=== PATIENT | male | born 1965 | race Caucasian/White ===

== ENCOUNTER 2017-12-24 14:48 | Emergency (ER) | payer OTHER ==
[2017-12-24] MEDS ORDERED: NA CHLORIDE 0.9% 2,000 ML ONE (15:17)
--- NOTE | 2017-12-24 15:34 | RAD REPORT ---
EXAM DESCRIPTION: US - Abdomen Exam Limited - 12/24/2017 3:27 pm CLINICAL HISTORY: Abdominal pain. COMPARISON: None. FINDINGS: The gallbladder demonstrates multiple small gallstones and a small amount of gallbladder s ludge. No pericholecystic fluid or gallbladder wall thickening. The common bile duct is normal measur ing 3 mm. The liver demonstrates no findings of intrahepatic biliary dilatation. IMPRESSION: Cholelithiasis.
[2017-12-24 15:44] LABS: Barbiturates NEGATIVE; Benzodiazepines NEGATIVE; Cocaine NEGATIVE; METHAMPHETAM NEGATIVE; Opiates NEGATIVE; Phencyclidine NEGATIVE; THC Cannibis NEGATIVE
--- NOTE | 2017-12-24 15:44 | RAD REPORT ---
EXAM DESCRIPTION: RAD - Chest Single View - 12/24/2017 3:37 pm CLINICAL HISTORY: Chest pain. COMPARISON: 08/07/2015 FINDINGS: Portable technique limits examination quality. The lungs are grossly clear. The heart is normal in size. No displaced fractures.Hardware is present cervical spine. IMPRESSION: No acute intrathoracic process suspected.
[2017-12-24 16:00] LABS: Absolute Lymphocytes (CBC) 1.3 K/uL (0.7-4.9); Absolute Monocytes 0.3 K/uL (0.1-1.3); Absolute Neutrophil 3.7 K/uL (1.8-8.0); Basophils % 0.4 % (0-1.3); Eosinophils % 1.5 % (0-4.4); Hematocrit 42.6 % (39.6-49.0); Lymphocytes % 23.9 % (15.3-44.8); MCH 30.6 pg (27.0-35.0); MCV 89.2 fL (80-100); MPV 10.5 fL (7.6-11.3); Monocytes % 6.3 % (3.3-12.3); RBC Red Blood Cell Count 4.77 M/uL (4.33-5.43)
[2017-12-24 16:01] LABS: Urine Blood NEGATIVE (NEG); Urine Glucose NEGATIVE (NEG); Urine Protein NEGATIVE (NEG)
[2017-12-24 16:03] LABS: Protime INR 1.13
[2017-12-24 16:04] LABS: Urine Bacteria NONE SEEN /HPF (NONE SEEN); Urine Culture Reflex Order NOT NEEDED; Urine RBC NONE SEEN /HPF (NONE SEEN)
[2017-12-24 16:12] LABS: Bicarbonate 28 mEq/L (21-31); Glucose Level 94 mg/dL (65-120); Lipase 16 U/L (22-51); Potassium 3.9 mEq/L (3.6-5.0); Sodium Level 129 mEq/L (135-145)
[2017-12-24 16:19] LABS: ALT/SGPT 25 IU/L (10-60); AST/SGOT 24 IU/L (10-42); Albumin 4.7 g/dL (3.2-5.5); Alkaline Phosphatase 64 IU/L (42-121); BUN Blood Urea Nitrogen 8 mg/dL (6-20); Bilirubin Direct 0.2 mg/dL (0-0.2); Bilirubin Total 1.1 mg/dL (0.3-1.2); Creatine Phosphokinase 159 IU/L (22-269); Protein, Total 7.8 g/dL (6.0-8.3)
[2017-12-24 16:21] LABS: CKMB Creatine Kinase MB 4.9 ng/ml (0.3-4.0)
--- NOTE | 2017-12-24 16:57 | RAD REPORT ---
EXAM DESCRIPTION: CT - Head Brain Wo Cont - 12/24/2017 4:39 pm CLINICAL HISTORY: Syncope, weakness COMPARISON: CT head July 2015. TECHNIQUE: Axial 5 mm thick images of the head were obtained without IV contrast. All CT scans are performed using dose optimization technique as appropriate and may include automated exposure control or mA/KV adjustment according to patient size. FINDINGS: No intracranial hemorrhage, mass, edema or shift of mid-line structures. No acute infarcti on changes seen. No abnormal extra-axial fluid collections. Ventricles are normal. Physiologic calcif ications are present. Mastoid air cells and visualized portions of the paranasal sinuses are clear. No acute bony findings. IMPRESSION: Negative non-contrast CT head examination for acute or significant finding No significant change from comparison.
--- NOTE | 2017-12-24 17:00 | RAD REPORT ---
EXAM DESCRIPTION: CT - Abdomen Pelvis W Contrast - 12/24/2017 4:46 pm COMPARISON: None. TECHNIQUE: Biphasic, helical CT imaging of the abdomen and pelvis was performed following 100 ml non -ionic IV contrast. Oral contrast was given. All CT scans are performed using dose optimization technique as appropriate and may include automated exposure control or mA/KV adjustment according to patient size. FINDINGS: No suspicious findings in the lung bases. The liver, spleen, and pancreas show no suspicious findings. Gallbladder and biliary tree are also wi thout suspicious finding. Symmetric renal function is seen with no hydronephrosis or suspicious renal mass. No pyelonephritis o r acute renal parenchymal process. A 5 centimeter thin-walled anechoic cyst is present lateral right kidney. No dilated bowel loops or bowel wall thickening. No free air, free fluid or inflammatory stranding. No mass or bulky lymphadenopathy. Fat extends into the origin of the left inguinal canal. No bladder wall thickening or mass. Prostate gland within normal limits. No adrenal abnormality. No suspicious bony findings. IMPRESSION: Contrast enhanced CT abdomen and pelvis showing no significant or suspicious finding.
--- NOTE | 2017-12-24 17:26 | ER ---
Nurse's Notes [facility] Name: Reji Rodrigez Age: 52 yrs Sex: Male : 1965 Arrival Date: 12/24/2017 Time: 14:50 Bed 15 Private MD: Diagnosis: Dehydration;Anorexia Presentation: 12/24 14:54 Presenting complaint: Patient states: i went to my pain management doctor and almost tw2 passed out and my temperature was low 94, having weakness and run down, lyme disease and my gallbladder is acting up. Transition of care: patient was not received from another setting of care. 14:54 Method Of Arrival: Ambulatory tw2 14:54 Acuity: TELLO 3 tw2 17:06 Onset of symptoms is unknown. Care prior to arrival: None. ae1 Historical: - Allergies: 15:04 No Known Allergies; ch - Home Meds: 17:10 Xanax Oral [Active]; Minetto Thyroid 30 mg Oral tab [Active]; ae1 - PMHx: 17:10 Hepatitis; Anxiety; lyme disease; ae1 - PSHx: 15:04 neck surgery X3; ch - Immunization history:: Flu vaccine is not up to date. - Social history:: Smoking status: Patient/guardian denies using tobacco. Screenin:58 Abuse screen: Denies threats or abuse. Nutritional screening: No deficits noted. ae1 Tuberculosis screening: No symptoms or risk factors identified. Fall Risk None identified. Assessment: 15:00 General: Appears in no apparent distress. uncomfortable, unkempt, Behavior is ae1 cooperative, anxious. Pain: Denies pain. Neuro: Level of Consciousness is awake, alert, obeys commands, Oriented to person, place, time, situation. Neuro: Reports dizziness. Cardiovascular: Heart tones S1 S2 present Patient's skin is warm and dry. Respiratory: Airway is patent Respiratory effort is even, unlabored, Respiratory pattern is regular, symmetrical, Breath sounds are clear bilaterally. GI: Abdomen is round Bowel sounds present X 4 quads. GI: Reports constipation. : No signs and/or symptoms were reported regarding the genitourinary system. Urine is clear. EENT: No signs and/or symptoms were reported regarding the EENT system. Derm: Skin is pale. Musculoskeletal: Reports Generalized weakness. 17:07 Reassessment: Patient appears in no apparent distress at this time. No changes from ae1 previously documented assessment. Patient and/or family updated on plan of care and expected duration. Pain level reassessed. 18:16 Reassessment: Patient appears in no apparent distress at this time. No changes from aj1 previously documented assessment. Patient and/or family updated on plan of care and expected duration. Pain level reassessed. Patient is alert, oriented x 3, equal unlabored respirations, skin warm/dry/pink. Vital Signs: 14:55 BP 123 / 83; Pulse 51; Resp 17; Temp 94.9(O); Pulse Ox 99% on R/A; Weight 88 kg (R); tw2 Height 6 ft. 2 in. (187.96 cm); Pain 7/10; 15:13 Temp 98(O); ae1 17:01 BP 132 / 96; Pulse 52; Resp 18 S; Pulse Ox 100% on R/A; ae1 14:55 Body Mass Index 24.91 (88.00 kg, 187.96 cm) tw2 14:55 stomach and it is throbbing. tw2 ED Course: 14:50 Patient arrived in ED. as 14:55 Triage completed. tw2 14:56 Arm band placed on. tw2 15:07 Ulices Tim, NADYA is Primary Nurse. ae1 15:10 [facility] Herr [facility]-C [facility]. snw 15:10 Uvaldo Sears MD is Attending Physician. snw 15:24 US Abdomen Limited In Process Unspecified. EDMS 15:24 Patient taken to ultrasound. via wheelchair. hr 15:36 X-ray completed. Portable x-ray completed in exam room. Patient tolerated procedure kc2 well. 15:38 Chest Single View XRAY In Process Unspecified. EDMS 16:10 EKG done, by medical records field technician. reviewed by Yaritza BUSCH. at1 16:36 Inserted 23 Gauge "butterfly" to obtain 2nd set of blood cultures from the right AC. ae1 16:[address] via wheelchair. nj 16:39 CT Head Brain wo Cont In Process Unspecified. EDMS 16:46 CT completed. Patient tolerated procedure well. Patient moved back from CT. nj 16:46 CT Abd/Pelvis - W/Contrast In Process Unspecified. EDMS 16:57 Patient moved back from CT. ae1 16:57 Placed in gown. Bed in low position. Call light in reach. Side rails up X 1. Adult w/ ae1 patient. color television console monitor on. Pulse ox on. NIBP on. Warm blanket given. 17:17 Primary Nurse role handed off by Ulices Tim, NADYA 17:20 Ulices Tim, RN is Primary Nurse. ae1 17:21 Primary Nurse role handed off by Ulices Tim, RN aj 17:21 Denisse Fernández, NADYA is Primary Nurse. aj1 17:22 Report received from Minerva Lobato RN. aj1 18:17 No provider procedures requiring assistance completed. IV discontinued, intact, aj1 bleeding controlled, No redness/swelling at site. Pressure dressing applied. Administered Medications: 15:40 Drug: NS 0.9% (30 ml/kg) 30 ml/kg Route: IV; Rate: bolus; Site: left antecubital; ae1 Point of Care Testing: Blood Glucose: 15:53 Blood Glucose: 83 mg/dL; ae1 Ranges: Outcome: 17:26 Discharge ordered by . snw 18:17 Discharged to home ambulatory. aj1 18:17 Condition: good 18:17 Discharge instructions given to patient, Instructed on discharge instructions, follow up and referral plans. no drinking with medication, no driving heavy equipment, medication usage, Demonstrated understanding of instructions, follow-up care, medications, Prescriptions given X 2. 18:18 Patient left the ED. aj1 Signatures: Dispatcher [employer] EDMS Kizzy Day, NADYA [place] Denisse Fernández, RN RN aj1 Yaritza Herr, SENIOR PRODUCT ENGINEER-C SENIOR PRODUCT ENGINEER-Csnw Jocy Gonzáles Amelia as gonzales, Amanda, inside sales EKG Tat1 Gisela Munguia, RN RN tw2 Miranda Carrizales kc2 Ulices Tim, RN RN ae1 Jose R Martin
--- NOTE | 2017-12-24 17:26 | EDPHYS ---
Physician Documentation [facility] Name: Reji Rodrigez Age: 52 yrs Sex: Male : 1965 Arrival Date: 12/24/2017 Time: 14:50 Bed 15 Private MD: ED Physician Uvaldo Sears HPI: 12/24 15:21 This 52 yrs old Male presents to ER via Ambulatory with complaints of Low snw Temp, Weakness. 15:21 Onset: The symptoms/episode began/occurred gradually, 1 month(s) ago, and became snw persistent. Associated signs and symptoms: Pertinent positives: abdominal pain, weakness, hypothermia. Modifying factors: The patient symptoms are alleviated by nothing. The patient has experienced similar episodes in the past. pain mgmt, Dr. Grier. Historical: - Allergies: 15:04 No Known Allergies; ch - Home Meds: 17:10 Xanax Oral [Active]; [place] Thyroid 30 mg Oral tab [Active]; ae1 - PMHx: 17:10 Hepatitis; Anxiety; lyme disease; ae1 - PSHx: 15:04 neck surgery X3; ch - Immunization history:: Flu vaccine is not up to date. - Social history:: Smoking status: Patient/guardian denies using tobacco. ROS: 15:19 Constitutional: Negative for fever, chills, and weight loss, Eyes: Negative for injury, snw pain, redness, and discharge, ENT: Negative for injury, pain, and discharge, Neck: Negative for injury, pain, and swelling, Respiratory: Negative for shortness of breath, cough, wheezing, and pleuritic chest pain, Back: Negative for injury and pain, : Negative for injury, bleeding, discharge, and swelling, MS/Extremity: Negative for injury and deformity, Skin: Negative for injury, rash, and discoloration. 15:19 Cardiovascular: Positive for near syncope. 15:19 Abdomen/GI: Positive for abdominal pain, nausea and vomiting, constipation, anorexia. 15:19 Neuro: Positive for near syncope, weakness. Exam: 15:19 Constitutional: This is a well developed, well nourished patient who is awake, alert, snw and in no acute distress. Head/Face: Normocephalic, atraumatic. Eyes: Pupils equal round and reactive to light, extra-ocular motions intact. Lids and lashes normal. Conjunctiva and sclera are non-icteric and not injected. Cornea within normal limits. Periorbital areas with no swelling, redness, or edema. ENT: Nares patent. No nasal discharge, no septal abnormalities noted. Tympanic membranes are normal and external auditory canals are clear. Oropharynx with no redness, swelling, or masses, exudates, or evidence of obstruction, uvula midline. Mucous membranes moist. Neck: Trachea midline, no thyromegaly or masses palpated, and no cervical lymphadenopathy. Supple, full range of motion without nuchal rigidity, or vertebral point tenderness. No Meningismus. Chest/axilla: Normal chest wall appearance and motion. Nontender with no deformity. No lesions are appreciated. Cardiovascular: Regular rate and rhythm with a normal S1 and S2. No gallops, murmurs, or rubs. Normal PMI, no JVD. No pulse deficits. Respiratory: Lungs have equal breath sounds bilaterally, clear to auscultation and percussion. No rales, rhonchi or wheezes noted. No increased work of breathing, no retractions or nasal flaring. Abdomen/GI: Soft, non-tender, with normal bowel sounds. No distension or tympany. No guarding or rebound. No evidence of tenderness throughout. Back: No spinal tenderness. No costovertebral tenderness. Full range of motion. Skin: Warm, dry with normal turgor. Normal color with no rashes, no lesions, and no evidence of cellulitis. MS/ Extremity: Pulses equal, no cyanosis. Neurovascular intact. Full, normal range of motion. Neuro: Awake and alert, GCS 15, oriented to person, place, time, and situation. Cranial nerves II-XII grossly intact. Motor strength 5/5 in all extremities. Sensory grossly intact. Cerebellar exam normal. Normal gait. Vital Signs: 14:55 BP 123 / 83; Pulse 51; Resp 17; Temp 94.9(O); Pulse Ox 99% on R/A; Weight 88 kg (R); tw2 Height 6 ft. 2 in. (187.96 cm); Pain 7/10; 15:13 Temp 98(O); ae1 17:01 BP 132 / 96; Pulse 52; Resp 18 S; Pulse Ox 100% on R/A; ae1 14:55 Body Mass Index 24.91 (88.00 kg, 187.96 cm) tw2 14:55 stomach and it is throbbing. tw2 MDM: 15:10 Patient medically screened. teddy 17:27 Data reviewed: vital signs, nurses notes. Data interpreted: Pulse oximetry: on room air snw is 100 %. Interpretation: normal. Counseling: I had a detailed discussion with the patient and/or guardian regarding: the historical points, exam findings, and any diagnostic results supporting the discharge/admit diagnosis, the presence of at least one elevated blood pressure reading (>120/80) during this emergency department visit, lab results, radiology results, the need for outpatient follow up, to return to the emergency department if symptoms worsen or persist or if there are any questions or concerns that arise at home. Special discussion: Based on the patient's Hx, exam, and Dx evaluation, there is no indication for emergent surgery or inpatient Tx. It is understood by the patient/guardian that if the Sx's persist or worsen they need to return immediately for re-evaluation. I have referred the patient to see his PCP for further evaluation of high blood pressure. Based on the history and exam findings, there is no indication for further emergent testing or inpatient evaluation. I discussed with the patient/guardian the need to see the enrichment director for further evaluation of the symptoms. I discussed with the patient/guardian the need to see the primary care provider for further evaluation of the symptoms. 12/24 15:11 Order name: Urine Culture w 12/24 15:11 Order name: Urine Microscopic Only; Complete Time: 16:12 snw 12/24 15:11 Order name: Basic Metabolic Panel; Complete Time: 16:22 snw 12/24 15:11 Order name: Blood Culture Adult (2) w 12/24 15:11 Order name: BNP; Complete Time: 17:20 snw 12/24 15:11 Order name: CBC with Diff; Complete Time: 16:12 snw 12/24 15:11 Order name: Ckmb; Complete Time: 16:22 snw 12/24 15:11 Order name: CPK; Complete Time: 16:22 snw 12/24 15:11 Order name: Lactate; Complete Time: 16:13 snw 12/24 15:11 Order name: LFT's; Complete Time: 16:22 snw 12/24 15:11 Order name: Lipase; Complete Time: 16:22 snw 12/24 15:11 Order name: Procalcitonin; Complete Time: 16:41 snw 12/24 15:11 Order name: Protime (+inr); Complete Time: 16:12 snw 12/24 15:11 Order name: Ptt, Activated; Complete Time: 16:12 snw 12/24 15:11 Order name: Troponin (emerg Dept Use Only); Complete Time: 16:21 snw 12/24 15:11 Order name: Chest Single View XRAY; Complete Time: 15:46 snw 12/24 15:11 Order name: Accucheck; Complete Time: 15:53 snw 12/24 15:11 Order name: Cardiac monitoring; Complete Time: 15:48 snw 12/24 15:11 Order name: EKG - Nurse/Tech; Complete Time: 16:05 snw 12/24 15:11 Order name: IV Saline Lock - Large Bore; Complete Time: 15:48 snw 12/24 15:11 Order name: Labs collected and sent; Complete Time: 15:48 snw 12/24 15:11 Order name: O2 Per Protocol; Complete Time: 15:48 snw 12/24 15:11 Order name: O2 Sat Monitoring; Complete Time: 15:48 snw 12/24 15:11 Order name: UDS snw 12/24 15:11 Order name: US Abdomen Limited; Complete Time: 15:40 snw 12/24 15:24 Order name: CT Head Brain wo Cont; Complete Time: 17:20 snw 12/24 15:24 Order name: CT Abd/Pelvis - W/Contrast; Complete Time: 17:20 snw 12/24 15:49 Order name: Urine Dipstick--Ancillary (enter results); Complete Time: 16:12 ag 12/24 16:46 Order name: EKG Electrocardiogram EDMS 12/24 15:11 Order name: Urine Dipstick-Ancillary (obtain specimen); Complete Time: 15:48 snw Administered Medications: 15:40 Drug: NS 0.9% (30 ml/kg) 30 ml/kg Route: IV; Rate: bolus; Site: left antecubital; ae1 Point of Care Testing: Blood Glucose: 15:53 Blood Glucose: 83 mg/dL; ae1 Ranges: Critical Glucose Levels:Adult <50 mg/dl or >400 mg/dl <40 mg/dl or >180 mg/dl Disposition: 12/25 07:03 Co-signature as Attending Physician, Uvaldo Sears MD I agree with the assessment and the [facility] plan of care. Disposition: 12/24/17 17:26 Discharged to Home. Impression: Dehydration, Anorexia. - Condition is Stable. - Discharge Instructions: Abdominal Pain, Adult, Dehydration, Adult, Near-Syncope, Malnutrition, Rehydration, Adult. - Prescriptions for promethazine 25 mg Oral Tablet - take 1 tablet by ORAL route every 6 hours As needed; 20 tablet. - Work release form, Medication Reconciliation Form, Thank You Letter, Antibiotic Education, Prescription Opioid Use form. - Follow up: Private Physician; When: 2 - 3 days; Reason: Recheck today's complaints, Continuance of care, Re-evaluation by your physician. Follow up: Emergency Department; When: As needed; Reason: Worsening of condition. Signatures: Dispatcher [employer] EDMS Kizzy Day, RN Denisse Pedro ch RN RN aj1 Uvaldo Sears MD MD cha Therrien, Shelly, AIRCONDITIONING ENGINEER-C AIRCONDITIONING ENGINEER-Csnw Ulices Tim, RN RN ae1
--- NOTE | 2017-12-25 08:00 | EKG ---
Test Date: 2017-12-24 Test Time: 16:04:28 Needle Punch Operator: IRLANDA MEASUREMENT RESULTS: Intervals: Rate: 49 AR: 128 QRSD: 96 QT: 458 QTc: 413 [place]: P: 46 AR: 128 QRS: 47 T: 53 INTERPRETIVE STATEMENTS: Marked sinus bradycardia Abnormal ECG Compared to ECG 08/07/2015 17:25:35 No significant changes Electronically Signed On 12-25-17 07:59:11 CDT by Eduardo Parrish
== END 2017-12-24 18:18 | disposition home or self-care (01) ==
LOC: ER 14:48
DX: E86.0 Dehydration (principal); R63.0 Anorexia; F41.9 Anxiety disorder, unspecified
CPT/HCPCS: 36415; 70450; 71045; 74177; 76705; 80048; 80076; 80307 ×8; 82550; 82553; 83605; 83690; 83880; 84145; 84484; 85025; 85610; 85730; 87040 ×2; 87086; 87088; 93005; J7030; Q9967; 81003; 81015; 82962; 96374; 99285

== ENCOUNTER 2018-01-29 09:47 | Day surgery (SDC) | payer OTHER ==
[2018-01-29 10:04] LABS: Absolute Monocytes 0.4 K/uL (0.1-1.3); Absolute Neutrophil 2.9 K/uL (1.8-8.0); Basophils % 0.5 % (0-1.3); Eosinophils % 2.9 % (0-4.4); Hematocrit 40.9 % (39.6-49.0); Lymphocytes % 36.7 % (15.3-44.8); MCH 30.1 pg (27.0-35.0); MCV 90.2 fL (80-100); MPV 9.9 fL (7.6-11.3); Monocytes % 7.3 % (3.3-12.3); RBC Red Blood Cell Count 4.53 M/uL (4.33-5.43)
[2018-01-29 10:20] LABS: Bicarbonate 30 mEq/L (21-31); Glucose Level 86 mg/dL (65-120); Potassium 4.5 mEq/L (3.6-5.0); Sodium Level 135 mEq/L (135-145)
[2018-01-29 10:26] LABS: ALT/SGPT 26 IU/L (10-60); AST/SGOT 22 IU/L (10-42); Albumin 4.4 g/dL (3.2-5.5); Alkaline Phosphatase 61 IU/L (42-121); Amylase Level 51 U/L (28-100); BUN Blood Urea Nitrogen 7 mg/dL (6-20); Bilirubin Direct 0.1 mg/dL (0-0.2); Bilirubin Total 0.8 mg/dL (0.3-1.2); Protein, Total 6.9 g/dL (6.0-8.3)
[2018-01-29] MEDS: Ringers Lactate 1,000 ML IV ONE ×2 (10:27→12:00)
[2018-01-29] MEDS ORDERED: LIDOCAINE 2% MPF 5 ML VIAL ONE (11:52)
[2018-01-29] MEDS ORDERED: PROPOFOL 200 MG/20 ML VIAL IV ONE ×2 (11:52→11:53)
[2018-01-29] MEDS ORDERED: ROCURONIUM 50 MG/5 ML VIAL IV ONE (11:54)
[2018-01-29] MEDS ORDERED: MIDAZOLAM HCL 2 MG/2 ML INJ ONE (11:54)
[2018-01-29] MEDS ORDERED: FENTANYL CITR 100 MCG/2 ML ONE (11:54)
[2018-01-29] MEDS: CEFOXITIN/SWI 1gm 1 GM/10 ML SYR ONE ×2 (11:55→12:02)
[2018-01-29] MEDS ORDERED: DEXAMETHASONE 10 MG/ML VIAL ONE (12:05)
[2018-01-29] MEDS ORDERED: GLYCOPYRROLATE 0.2 MG/ML SYR ONE ×3 (12:10→12:34)
[2018-01-29] MEDS ORDERED: EPHEDRINE SULF 50 MG/5 ML SYR ONE (12:25)
[2018-01-29] MEDS ORDERED: NS 0.9% VIAL 10 ML ONE (12:25)
[2018-01-29] MEDS ORDERED: NEOSTIGMINE 1 MG/ML -5 ML SYRINGE ONE (12:34)
[2018-01-29] MEDS ORDERED: KETOROLAC 30 MG/ML INJ ONE (12:49)
[2018-01-29] MEDS ORDERED: Ringers Lactate 1,000 ML IV ONE (12:54)
[2018-01-29] MEDS ORDERED: ONDANSETRON HCL 40 MG/20 ML VIAL ONE (12:55)
[2018-01-29] MEDS: MEPERIDINE HCL 50 MG/ML AMP ONE ×4 (13:19→13:36)
[2018-01-29] MEDS ORDERED: PROMETHAZINE 25 MG/ML VIAL ONE (13:51)
--- NOTE | 2018-01-30 00:20 | OP ---
Date of Procedure: 01/29/2018 Surgeon: Tha Granados MD Preoperative Diagnosis: Symptomatic cholelithiasis. Postoperative Diagnosis: Symptomatic cholelithiasis. Procedure: Laparoscopic cholecystectomy. Estimated Blood Loss: Minimal. Specimen: Gallbladder. Findings: As above. Anesthesia: General. Complications: None. Disposition: The patient tolerated the procedure in stable condition, taken to Recovery in good gene ral condition. Operative Note: The patient was brought to the OR and placed in supine position. General anesthesia was begun. The patient was prepped and draped in usual sterile fashion. Marcaine 0.5% was infiltra dorie locally. A 15-blade was used to make a 1 cm infraumbilical midline incision. Subcutaneous tissu e divided. Fascia was identified and divided. A #1 Vicryl stay suture was placed. Peritoneal cavit y was entered with blunt dissection. A 12-mm trocar was placed into the peritoneal cavity under dire ct vision. Pneumoperitoneum established and then three 5-mm trocars placed, 1 in the epigastrium jus t to the right of midline and 2 in the right subcostal region. Laparoscopy revealed chronic inflamma tion of the gallbladder. Fundus retracted superiorly. Infundibulum identified, retracted inferolate rally. Few omental adhesions taken down in gentle dissection. No bleeding noted. Subsequently cyst ic duct and cystic artery were clearly identified with blunt dissection. Clips placed. Both structu res divided. Cautery used to remove the gallbladder from the liver bed. Bleeding on the liver bed w as controlled with cautery. Gallbladder retrieved via EndoCatch bag. Right upper quadrant was irrig ated. Effluent was clear. No evidence of bleeding or bile leakage appreciated. Subsequently, all t rocars were removed under direct vision. Stay sutures tied to each other across the fascial defect. Subcutaneous wounds irrigated. Bleeding controlled with cautery. A 3-0 chromic was used to approxi mate subcutaneous tissue and caitlyn used to close skin. Sterile dressing applied. The patient was awakened and taken to Recovery in good general condition. Discharge Note: The patient will go to Day Surgery and home when stable. Disposition: Home. Condition: Stable. Discharge Instructions: Resume home medications and diet. Activity as tolerated. No heavy lifting. Remove outer dressing in 2 days. Shower. Keep wound clean and dry. Follow up in my office in a w [place]. Call for appointment. Tylenol No. 3 one tablet p.o. q.4 p.r.n. pain. /SAURAV Voice ID: [id number] Report ID: [id number]
== END 2018-01-29 15:10 | disposition home or self-care (01) ==
LOC: OR 09:47
PROVIDERS: ATTEND Surgery
PROC: 0FT44ZZ Resection of Gallbladder, Percutaneous Endoscopic Approach (ICD-10-PCS; principal; 2018-01-29 10:30)
DX: K80.20 Calculus of gallbladder without cholecystitis without obstruction (principal)
CPT/HCPCS: 36415; 47562; 80048; 80076; 82150; 85025; 88304; J1100; J2175; J2250; J2405; J2550; J2710; J3010; 88305

== ENCOUNTER 2018-04-29 16:37 | Emergency (ER) | payer OTHER ==
[2018-04-29 18:59] LABS: Urine Blood NEGATIVE (NEG); Urine Glucose NEGATIVE (NEG); Urine Protein NEGATIVE (NEG); Urine pH 7.5 (5.0-7.0)
[2018-04-29 19:00] LABS: Absolute Monocytes 0.4 K/uL (0.1-1.3); Absolute Neutrophil 4.3 K/uL (1.8-8.0); Basophils % 0.5 % (0-1.3); Eosinophils % 3.2 % (0-4.4); Hematocrit 43.6 % (39.6-49.0); Lymphocytes % 28.8 % (15.3-44.8); MCH 31.6 pg (27.0-35.0); MCV 91.3 fL (80-100); MPV 8.5 fL (7.6-11.3); Monocytes % 6.1 % (3.3-12.3); RBC Red Blood Cell Count 4.77 M/uL (4.33-5.43)
[2018-04-29 19:17] LABS: ALT/SGPT 53 U/L (12-78); AST/SGOT 29 U/L (15-37); Albumin 4.2 g/dL (3.4-5.0); Alkaline Phosphatase 76 U/L (45-117); Amylase Level 50 U/L (25-115); BUN Blood Urea Nitrogen 6 mg/dL (7-18); Bicarbonate 31 mmol/L (21-32); Bilirubin Direct 0.1 mg/dL (0-0.2); Bilirubin Total 0.6 mg/dL (0.2-1.0); Glucose Level 91 mg/dL (74-106); Lipase 95 U/L (73-393); Potassium 4.3 mmol/L (3.5-5.1); Protein, Total 8.2 g/dL (6.4-8.2); Sodium Level 135 mmol/L (136-145)
[2018-04-29 19:21] LABS: Urine Bacteria <20 /HPF (NONE SEEN); Urine Culture Reflex Order NOT NEEDED; Urine RBC <5 /HPF (NONE SEEN)
[2018-04-29] MEDS ORDERED: MAGNE/ALUM HYDROXD 30 ML UCUP ONE (19:47)
[2018-04-29] MEDS ORDERED: LIDOCAINE VISCOUS 2% SOLN 15 ML UDC ONE (19:47)
--- NOTE | 2018-04-29 21:50 | EDPHYS ---
Physician Documentation [facility] Name: Reji Rodrigez Age: 53 yrs Sex: Male : 1965 Arrival Date: 04/29/2018 Time: 16:38 Bed 28 Private MD: out of town, doctor ED Physician Jacob Mcclendon HPI: 04/29 19:04 This 53 yrs old Male presents to ER via Ambulatory with complaints of tw4 Abdominal Pain. 19:04 The patient presents with abdominal pain in the epigastric area. Onset: The tw4 symptoms/episode began/occurred today. The symptoms do not radiate. Associated signs and symptoms: Pertinent positives: nausea and vomiting, Pertinent negatives: blood in stools, chest pain, constipation, diarrhea, fever, headache, hematuria. The symptoms are described as sharp. Modifying factors: The symptoms are alleviated by nothing, the symptoms are aggravated by nothing. Severity of pain: At its worst the pain was moderate in the emergency department the pain is unchanged. The patient has not experienced similar symptoms in the past. Historical: - Allergies: 17:24 No Known Allergies; aj1 - Home Meds: 17:24 Xanax Oral [Active]; OxyContin Oral [Active]; aj1 - PMHx: 17:24 Anxiety; Hepatitis; lyme disease; Hypothyroidism; aj1 - Immunization history:: Flu vaccine is not up to date. - Social history:: Smoking status: Patient/guardian denies using tobacco. - Ebola Screening: : Patient denies travel to an Ebola-affected area in the 21 days before illness onset. ROS: 19:04 Constitutional: Negative for fever, chills, and weight loss, Cardiovascular: Negative tw4 for chest pain, palpitations, and edema, Respiratory: Negative for shortness of breath, cough, wheezing, and pleuritic chest pain. 19:04 Back: Negative for injury and pain, MS/Extremity: Negative for injury and deformity, Skin: Negative for injury, rash, and discoloration. 19:04 Abdomen/GI: Positive for abdominal pain, Negative for nausea and vomiting, nausea, vomiting, and diarrhea, nausea, black/tarry stool, rectal pain. Exam: 19:04 Constitutional: This is a well developed, well nourished patient who is awake, alert, tw4 and in no acute distress. Head/Face: Normocephalic, atraumatic. Chest/axilla: Normal chest wall appearance and motion. Nontender with no deformity. No lesions are appreciated. Cardiovascular: Regular rate and rhythm with a normal S1 and S2. No gallops, murmurs, or rubs. Normal PMI, no JVD. No pulse deficits. Respiratory: Lungs have equal breath sounds bilaterally, clear to auscultation and percussion. No rales, rhonchi or wheezes noted. No increased work of breathing, no retractions or nasal flaring. 19:04 MS/ Extremity: Pulses equal, no cyanosis. Neurovascular intact. Full, normal range of motion. Neuro: Awake and alert, GCS 15, oriented to person, place, time, and situation. Cranial nerves II-XII grossly intact. Motor strength 5/5 in all extremities. Sensory grossly intact. Cerebellar exam normal. Normal gait. 19:04 Abdomen/GI: Inspection: abdomen appears normal, Bowel sounds: normal, Palpation: moderate abdominal tenderness, in the epigastric area. Vital Signs: 17:24 BP 126 / 96; Pulse 56; Resp 20; Temp 98.2; Pulse Ox 100% on R/A; Weight 81.65 kg (R); aj1 Height 6 ft. 3 in. (190.50 cm) (R); Pain 6/10; 19:21 Pulse 57; Resp 18; Pulse Ox 100% ; Pain 8/10; mg2 20:24 BP 122 / 75; Pulse 51; Resp 18; Pulse Ox 100% on R/A; mg2 22:06 BP 121 / 74; Pulse 50; Resp 18; Pulse Ox 100% on R/A; mg2 17:24 Body Mass Index 22.50 (81.65 kg, 190.50 cm) aj1 MDM: 18:10 Patient medically screened. tw4 21:48 Differential diagnosis: gastritis, Hepatitis, Irritable bowel syndrome, pancreatitis, tw4 Peptic Ulcer Disease, Perf. Duodenal Ulcer, Perf. Gastric Ulcer. Data reviewed: vital signs, nurses notes. Counseling: I had a detailed discussion with the patient and/or guardian regarding: the historical points, exam findings, and any diagnostic results supporting the discharge/admit diagnosis, lab results. Medication response: GI Cocktail partially relieved the patient's pain. Response to treatment: and as a result, I will discharge patient. Special discussion: Based on the patient's Hx, exam, and Dx evaluation, there is no indication for emergent surgery or inpatient Tx. It is understood by the patient/guardian that if the Sx's persist or worsen they need to return immediately for re-evaluation. 04/29 18:12 Order name: Amylase, Serum; Complete Time: 19:40 [facility] 04/29 19:41 Interpretation: Within normal limits: VINNY 50. [facility] 04/29 18:12 Order name: Basic Metabolic Panel; Complete Time: 19:40 04/29 19:40 Interpretation: Normal except: NA 135. 04/29 18:12 Order name: CBC with Diff; Complete Time: 19:40 4 04/29 19:41 Interpretation: Within normal limits. 04/29 18:12 Order name: Creatinine for Radiology; Complete Time: 19:40 [facility] 04/29 19:41 Interpretation: Within normal limits. 04/29 18:12 Order name: Hepatic Function; Complete Time: 19:40 [facility] 04/29 19:40 Interpretation: Normal except: GLOB 4.0. 04/29 18:12 Order name: Lipase; Complete Time: 19:40 [facility] 04/29 19:41 Interpretation: Within normal limits: LIP 95. 04/29 18:12 Order name: Urine Microscopic Only; Complete Time: 19:40 [facility] 04/29 18:12 Order name: IV Saline Lock; Complete Time: 18:54 [facility] 04/29 18:12 Order name: Labs collected and sent; Complete Time: 18:54 [facility] 04/29 18:12 Order name: Urine Dipstick-Ancillary (obtain specimen); Complete Time: 18:54 [facility] 04/29 18:52 Order name: Urine Dipstick--Ancillary (enter results); Complete Time: 19:40 bd EC:52 Rate is 52 beats/min. Rhythm is regular. QRS [place] is Normal. UT interval is normal. QRS tw4 interval is normal. QT interval is normal. No Q waves. T waves are Normal. No ST changes noted. Clinical impression: Sinus bradycardia. Interpreted by me. Reviewed by me. Administered Medications: 19:55 Not Given (Physician Discretion): GI Cocktail with - (Maalox Suspension 30 ml, mg2 Lidocaine Liquid 2 % 20 ml, Phenobarbital-Belladonna 10 ml) PO once 19:55 Drug: GI Cocktail without - (Maalox Suspension 30 ml, Lidocaine Liquid 2 % 15 mg2 ml) Route: PO; 21:50 Follow up: Response: No adverse reaction; Marked relief of symptoms mg2 Disposition: 04/29/18 21:49 Discharged to Home. Impression: Gastritis, unspecified. - Condition is Stable. - Discharge Instructions: Gastritis, Adult, [id number]. - Prescriptions for Carafate 1 gram Oral Tablet - take 1 tablet by ORAL route 4 times per day take on an empty stomach, beginning on waking and last dose at bedtime; 100 tablet. Protonix 40 mg Oral Tablet - take 1 tablet by ORAL route once daily; 30 tablet. - Medication Reconciliation Form, Thank You Letter, Antibiotic Education, Prescription Opioid Use form. - Follow up: Private Physician; When: As needed; Reason: Further diagnostic work-up, Recheck today's complaints, Re-evaluation by your physician. - Problem is new. - Symptoms have improved. Signatures: Dispatcher [employer] EDDenisse Jain RN RN aj1 Jacob Mcclendon MD MD tw4 Jorge Landeros RN RN mg2 Corrections: (The following items were deleted from the chart) 22:07 21:49 04/29/2018 21:49 Discharged to Home. Impression: Gastritis, unspecified. mg2 Condition is Stable. Forms are Medication Reconciliation Form, Thank You Letter, Antibiotic Education, Prescription Opioid Use. Follow up: Private Physician; When: As needed; Reason: Further diagnostic work-up, Recheck today's complaints, Re-evaluation by your physician. Problem is new. Symptoms have improved. tw4
--- NOTE | 2018-04-29 21:50 | ER ---
Nurse's Notes [facility] Name: Reji Rodrigez Age: 53 yrs Sex: Male : 1965 Arrival Date: 04/29/2018 Time: 16:38 Bed 28 Private MD: out of town, doctor Diagnosis: Gastritis, unspecified Presentation: 04/29 17:19 Presenting complaint: Patient states: Epigastric pain that radiates to the back, aj1 burning sensation that radiates up into the chest. Patient states that he was having these symptoms so they took his gallbladder out 2 months ago, but the symptoms have just gotten worse. Patient has tried taking Tums and Nexium, with no relief. State he had a scope done by his GI 2 weeks ago and he was diagnosed with gastritis and H.Pylori. Reports SOB when he lays down flat. Transition of care: patient was not received from another setting of care. Onset of symptoms was February 2018. Risk Assessment: Do you want to hurt yourself or someone else? Patient reports no desire to harm self or others. Initial Sepsis Screen: Does the patient meet any 2 criteria? No. Patient's initial sepsis screen is negative. Does the patient have a suspected source of infection? No. Patient's initial sepsis screen is negative. Care prior to arrival: None. 17:19 Method Of Arrival: Ambulatory aj1 17:19 Acuity: TELLO 3 aj1 Triage Assessment: 17:24 General: Appears in no apparent distress. uncomfortable, Behavior is calm, cooperative, aj1 appropriate for age. Pain: Complains of pain in epigastric area Pain radiates to back and chest Pain currently is 6 out of 10 on a pain scale. Quality of pain is described as burning. Neuro: Level of Consciousness is awake, alert, obeys commands. Cardiovascular: Reports chest pain, shortness of breath, Heart tones S1 S2 present Patient's skin is warm and dry. Respiratory: Airway is patent Respiratory effort is even, unlabored, Respiratory pattern is regular, symmetrical, Breath sounds are clear bilaterally. GI: Abdomen is flat, non-distended, Reports upper abdominal pain, diarrhea, nausea, Patient currently denies vomiting. Historical: - Allergies: 17:24 No Known Allergies; aj1 - Home Meds: 17:24 Xanax Oral [Active]; OxyContin Oral [Active]; aj1 - PMHx: 17:24 Anxiety; Hepatitis; lyme disease; Hypothyroidism; aj1 - Immunization history:: Flu vaccine is not up to date. - Social history:: Smoking status: Patient/guardian denies using tobacco. - Ebola Screening: : Patient denies travel to an Ebola-affected area in the 21 days before illness onset. Screenin:19 Abuse screen: Denies threats or abuse. Nutritional screening: On low fat/low mg2 cholesterol diet. Tuberculosis screening: No symptoms or risk factors identified. Fall Risk IV access (20 points). Assessment: 19:19 General: Appears in no apparent distress. comfortable, Behavior is calm, cooperative. mg2 Pain: Complains of pain in chest and back and abdomen and epigastric area Pain does not radiate. Pain currently is 8 out of 10 on a pain scale. Quality of pain is described as aching, Pain began gradually, Is intermittent. Neuro: Level of Consciousness is awake, alert, obeys commands, Oriented to person, place, time, situation. Cardiovascular: Capillary refill < 3 seconds Patient's skin is warm and dry. Respiratory: Airway is patent Respiratory effort is even, unlabored, Respiratory pattern is regular, symmetrical. GI: Abdomen is flat, Bowel sounds present X 4 quads. Abd is soft and non tender. : No signs and/or symptoms were reported regarding the genitourinary system. EENT: No signs and/or symptoms were reported regarding the EENT system. Derm: Skin is intact, Skin is pink, warm \T\ dry. normal. Musculoskeletal: Circulation, motion, and sensation intact. Vital Signs: 17:24 BP 126 / 96; Pulse 56; Resp 20; Temp 98.2; Pulse Ox 100% on R/A; Weight 81.65 kg (R); aj1 Height 6 ft. 3 in. (190.50 cm) (R); Pain 6/10; 19:21 Pulse 57; Resp 18; Pulse Ox 100% ; Pain 8/10; mg2 20:24 BP 122 / 75; Pulse 51; Resp 18; Pulse Ox 100% on R/A; mg2 22:06 BP 121 / 74; Pulse 50; Resp 18; Pulse Ox 100% on R/A; mg2 17:24 Body Mass Index 22.50 (81.65 kg, 190.50 cm) aj ED Course: 16:38 Patient arrived in ED. sb2 16:38 out of town, doctor is Private Physician. sb2 17:23 Triage completed. aj1 17:24 Arm band placed on. EKG completed in triage. Results shown to MD. aj1 17:33 Patient placed in waiting room, Patient notified of wait time. EKG completed in triage. aj1 Results shown to MD. 18:10 Jacob Mcclendon MD is Attending Physician. tw4 18:47 Jorge Landeros, RN is Primary Nurse. mg2 18:55 Inserted saline lock: 20 gauge in left antecubital area, using aseptic technique. Blood mg2 collected. 19:20 Patient has correct armband on for positive identification. Bed in low position. Side mg2 rails up X 1. Pulse ox on. NIBP on. Door closed. Warm blanket given. 22:05 No provider procedures requiring assistance completed. IV discontinued, intact, mg2 bleeding controlled, No redness/swelling at site. Pressure dressing applied. Administered Medications: 19:55 Not Given (Physician Discretion): GI Cocktail with - (Maalox Suspension 30 ml, mg2 Lidocaine Liquid 2 % 20 ml, Phenobarbital-Belladonna 10 ml) PO once 19:55 Drug: GI Cocktail without - (Maalox Suspension 30 ml, Lidocaine Liquid 2 % 15 mg2 ml) Route: PO; 21:50 Follow up: Response: No adverse reaction; Marked relief of symptoms mg2 Outcome: 21:49 Discharge ordered by . tw4 22:06 Discharged to home ambulatory. mg2 22:06 Condition: stable 22:06 Discharge instructions given to patient, Instructed on discharge instructions, follow up and referral plans. Demonstrated understanding of instructions, follow-up care, medications, Prescriptions given X 2. 22:07 Patient left the ED. mg2 Signatures: Denisse Fernández, RN RN aj1 Jacob Mcclendon MD MD tw4 Jacquelyn Alvarez sb2 Jorge Landeros, NADYA RN mg2
--- NOTE | 2018-04-30 07:37 | EKG ---
Test Date: 2018-04-29 Test Time: 17:29:35 Phytopathology Teacher: ANDREINA MEASUREMENT RESULTS: Intervals: Rate: 52 OK: 156 QRSD: 94 QT: 446 QTc: 414 [place]: P: 75 OK: 156 QRS: 57 T: 65 INTERPRETIVE STATEMENTS: Sinus bradycardia Otherwise normal ECG Electronically Signed On 04-30-18 07:36:49 CDT by Eduardo Parrish
== END 2018-04-29 22:07 | disposition home or self-care (01) ==
LOC: ER 16:37
DX: K29.70 Gastritis, unspecified, without bleeding (principal); F41.9 Anxiety disorder, unspecified
CPT/HCPCS: 36415; 80048; 80076; 81003; 81015; 82150; 83690; 85025; 93005; 99284

== ENCOUNTER 2018-05-05 08:45 | Observation (INO) | payer OTHER ==
[2018-05-05 09:27] LABS: Urine Blood NEGATIVE (NEG); Urine Glucose NEGATIVE (NEG); Urine Protein NEGATIVE (NEG); Urine Specific Gravity <1.005 (1.005-1.030)
[2018-05-05 09:28] LABS: Urine Bacteria <20 /HPF (NONE SEEN); Urine Culture Reflex Order NOT NEEDED; Urine RBC <5 /HPF (NONE SEEN)
[2018-05-05] MEDS ORDERED: NA CHLORIDE 0.9% 1,000 ML ONE (09:33)
[2018-05-05] MEDS ORDERED: METHYLPREDNISOLONE 125 MG INJ ONE (09:33)
[2018-05-05] MEDS ORDERED: DIPHENHYDRAMINE 50 MG/ML VIAL ONE (09:33)
[2018-05-05 09:40] LABS: Absolute Lymphocytes (CBC) 1.9 K/uL (0.7-4.9); Absolute Monocytes 0.4 K/uL (0.1-1.3); Absolute Neutrophil 3.1 K/uL (1.8-8.0); Basophils % 0.7 % (0-1.3); Eosinophils % 3.2 % (0-4.4); Hematocrit 44.7 % (39.6-49.0); Lymphocytes % 34.5 % (15.3-44.8); MCH 31.6 pg (27.0-35.0); MCV 90.8 fL (80-100); MPV 9.2 fL (7.6-11.3); Monocytes % 6.6 % (3.3-12.3); RBC Red Blood Cell Count 4.92 M/uL (4.33-5.43)
[2018-05-05] MEDS ORDERED: MORPHINE 4 MG/ML SYR ONE ×2 (09:40→12:28)
[2018-05-05 09:44] LABS: ALT/SGPT 51 U/L (12-78); AST/SGOT 27 U/L (15-37); Albumin 4.3 g/dL (3.4-5.0); Alkaline Phosphatase 77 U/L (45-117); Amylase Level 43 U/L (25-115); BUN Blood Urea Nitrogen 5 mg/dL (7-18); Bicarbonate 33 mmol/L (21-32); Bilirubin Direct 0.3 mg/dL (0-0.2); Glucose Level 95 mg/dL (74-106); Lipase 110 U/L (73-393); Potassium 4.1 mmol/L (3.5-5.1); Protein, Total 8.3 g/dL (6.4-8.2); Sodium Level 134 mmol/L (136-145)
[2018-05-05] MEDS ORDERED: FAMOTIDINE 20 MG/2 ML VIAL IV ONE (10:01)
--- NOTE | 2018-05-05 10:14 | RAD REPORT ---
EXAM DESCRIPTION: CTAbdomen Pelvis W Contrast - 05/05/2018 9:45 am CLINICAL HISTORY: Abdominal pain. ABD PAIN COMPARISON: Abdomen Pelvis W Contrast dated 12/24/2017 TECHNIQUE: Biphasic CT imaging of the abdomen and pelvis was performed with 100 ml non-ionic IV cont rast. All CT scans are performed using dose optimization technique as appropriate and may include automated exposure control or mA/KV adjustment according to patient size. FINDINGS: The lung bases are clear.Cholecystectomy clips. The liver, spleen, pancreas, adrenal glands and left kidney are within normal limits. Benign 4.4 cm r ight renal cyst. No bowel obstruction, free air, free fluid or abscess. Prominent fecal retention. The appendix is nor mal. No evidence of significant lymphadenopathy. No suspicious bony findings. IMPRESSION: No acute intra-abdominal or pelvic finding.
--- NOTE | 2018-05-05 11:19 | ER ---
Nurse's Notes [facility] Name: Reji Rodrigez Age: 53 yrs Sex: Male : 1965 Arrival Date: 05/05/2018 Time: 08:48 Bed 5 Private MD: out of town, doctor Diagnosis: Abdominal and pelvic pain-Intractable Presentation: 05/05 08:50 Presenting complaint: Patient states: epi gastric pain, I had my gall bladder out two ch months ago, I had my stomach scoped one month ago, they said I have gatritis. I should get my labs back from my GI this week. but the pain in my stomach radiating to my back is worse, and the pain is radiating to my back. I was seen here last week. .all my joints hurt, Dr. Jara is my GI, he wont call me back. Transition of care: patient was not received from another setting of care. Onset of symptoms was February 2018. Risk Assessment: Do you want to hurt yourself or someone else? Patient reports no desire to harm self or others. Initial Sepsis Screen: Does the patient meet any 2 criteria? No. Patient's initial sepsis screen is negative. Does the patient have a suspected source of infection? No. Patient's initial sepsis screen is negative. Care prior to arrival: carafate, pepcid. 08:50 Method Of Arrival: Wheelchair 08:50 Acuity: TELLO 3 ch Triage Assessment: 08:54 General: Appears in no apparent distress. uncomfortable, Behavior is cooperative, ch agitated, restless. Pain: Complains of pain in epigastric area, posterior aspect of left lateral abdomen, posterior aspect of right lateral abdomen, right upper quadrant, left upper quadrant and abdomen diffusely Pain currently is 9 out of 10 on a pain scale. GI: Reports upper abdominal pain, nausea. Historical: - Allergies: 08:54 "everything I take makes me nausous"; ch 08:54 Lyrica; ch - Home Meds: 08:54 Carafate Oral [Active]; OxyContin Oral [Active]; Xanax Oral [Active]; [place] Thyroid 30 ch mg Oral tab [Active]; - PMHx: 08:54 Anxiety; Hepatitis; Hypothyroidism; lyme disease; c4-c7 fused, neck pain; gastritis; ch "mold toxicity"; epstine torres high a ccouple times; - PSHx: 08:54 Cholecystectomy; neck; ch - Immunization history:: Adult Immunizations up to date, Pneumococcal vaccine is not up to date, Flu vaccine is not up to date. - Social history:: Smoking status: Patient/guardian denies using tobacco, Patient/guardian denies using alcohol, street drugs. - Ebola Screening: : Patient negative for fever greater than or equal to 101.5 degrees Fahrenheit, and additional compatible Ebola Virus Disease symptoms Patient denies exposure to infectious person Patient denies travel to an Ebola-affected area in the 21 days before illness onset No symptoms or risks identified at this time. Screenin:20 Abuse screen: Denies threats or abuse. Denies injuries from another. Nutritional sv screening: No deficits noted. Tuberculosis screening: No symptoms or risk factors identified. Fall Risk None identified. Assessment: 09:10 General: Appears uncomfortable, slender, well developed, Behavior is calm, cooperative. sv Pain: Complains of pain in abdomen Pain currently is 9 out of 10 on a pain scale. Quality of pain is described as shooting, Is continuous. Neuro: Level of Consciousness is awake, alert, obeys commands, Oriented to person, place, time, situation, Moves all extremities. Full function Speech is normal. Respiratory: Respiratory effort is even, unlabored, Respiratory pattern is regular, symmetrical. GI: Abdomen is flat, Abd is soft X 4 quads Abdomen is tender to palpation X 4 quads. Reports nausea. : No signs and/or symptoms were reported regarding the genitourinary system. EENT: No signs and/or symptoms were reported regarding the EENT system. Derm: Skin is normal. Musculoskeletal: No signs and/or symptoms reported regarding the musculoskeletal system. 11:00 Reassessment: Patient appears in no apparent distress at this time. Patient and/or sv family updated on plan of care and expected duration. Pain level reassessed. Patient is alert, oriented x 3, equal unlabored respirations, skin warm/dry/pink. 12:25 Reassessment: Patient appears in no apparent distress at this time. Patient and/or sv family updated on plan of care and expected duration. Pain level reassessed. Patient is alert, oriented x 3, equal unlabored respirations, skin warm/dry/pink. Pt c/o abd pain, to be medicated. 12:37 Reassessment: Joaquim COVINGTON to call back for report. sv Vital Signs: 08:54 BP 126 / 88; Pulse 49; Resp 22; Temp 97.7; Pulse Ox 100% on R/A; Weight 81.65 kg; ch Height 6 ft. 2 in. (187.96 cm); Pain 9/10; 10:08 BP 134 / 85; Pulse 52 MON; Resp 16; Pulse Ox 100% on R/A; sv 11:13 BP 133 / 84; Pulse 68; Resp 18; Pulse Ox 100% on R/A; ag 08:54 Body Mass Index 23.11 (81.65 kg, 187.96 cm) ch 10:08 Sinus bradycardia sv ED Course: 08:48 Patient arrived in ED. sb2 08:48 out of town, doctor is Private Physician. sb2 08:49 Beck Simental MD is Attending Physician. kdr 08:52 Triage completed. ch 08:54 Arm band placed on left wrist. Patient placed in an exam room, on a stretcher. ch 08:58 Hortencia Swanson RN is Primary Nurse. sv 09:15 Initial lab(s) drawn, by ED staff, sent to lab. Inserted saline lock: 20 gauge in left sv antecubital area, using aseptic technique. ,using aseptic technique. done by Gisela Swain RN Blood collected. 09:20 Patient has correct armband on for positive identification. Placed in gown. Bed in low sv position. Call light in reach. Side rails up X 1. echocardiography radiology technologist on. Pulse ox on. NIBP on. Door closed. Warm blanket given. Head of bed elevated. 09:41 CT completed. Patient tolerated procedure well. Patient moved to CT via stretcher. sj Patient moved back from CT. 09:46 CT Abd/Pelvis - W/Contrast In Process Unspecified. EDMS 11:18 Dinh Malagon DO is Hospitalizing Provider. kdr 12:19 Ultrasound completed. lc3 12:31 Radiology exam delayed due to US IN ROOM. jb2 12:52 X-ray completed. Patient tolerated procedure well. Patient moved to radiology via jb2 wheelchair. 12:59 No provider procedures requiring assistance completed. Patient admitted, IV remains in sv place. intact. Administered Medications: 09:30 Drug: Benadryl 25 mg Route: IVP; Site: left antecubital; sv 10:06 Follow up: Response: No adverse reaction sv 09:30 Drug: NS 0.9% 1000 ml Route: IV; Rate: 1 bolus; Site: left antecubital; sv 11:22 Follow up: Response: No adverse reaction; IV Status: Completed infusion; IV Intake: tw2 1000ml 09:32 Drug: SOLU-Medrol 125 mg Route: IVP; Site: left antecubital; sv 10:07 Follow up: Response: No adverse reaction sv 09:35 Drug: morphine 4 mg Route: IVP; Site: left antecubital; sv 10:00 Follow up: Response: No adverse reaction sv 10:06 Not Given (Patient Refused; Pt stated it makes him feel worse): Pepcid 20 mg IVP once sv 12:25 Drug: morphine 4 mg Route: IVP; Site: left antecubital; sv 12:45 Follow up: Response: No adverse reaction sv 12:29 Not Given (Patient Refused): Zofran 4 mg IVP once; over 2 minutes sv Intake: 11:22 IV: 1000ml; Total: 1000ml. tw2 Outcome: 11:19 Decision to Hospitalize by Provider. kdr 13:00 Admitted to Med/surg accompanied by tech, via wheelchair, room 232, with chart, Report sv called to Joaquim COVINGTON 13:00 Condition: stable 13:00 Instructed on the need for admit. 13:00 Patient left the ED. sv Signatures: Dispatcher [employer] EDMS Kizzy Day RN RN ch Verde, Stephanie, RN RN sv Rittger, Kevin, MD MD kdr Buechter, Jesse jb2 Jones, Susan sj Gallardo, Ana ag Cunningham, Laulita lc3 Wise, Tara, RN RN tw2 Jacquelyn Alvarez2 Corrections: (The following items were deleted from the chart) 08:56 08:50 Presenting complaint: Patient states: epi gastric pain, I had my gall bladder out ch two months ago, I had my stomach scoped one month ago, they said I have gatritis. I should get my labs back from my GI this week. but the pain in my stomach radiating to my back is worse, and the pain is radiating to my back. I was seen here last week. . ch
--- NOTE | 2018-05-05 11:19 | EDPHYS ---
Physician Documentation [facility] Name: Reji Rodrigez Age: 53 yrs Sex: Male : 1965 Arrival Date: 05/05/2018 Time: 08:48 Bed 5 Private MD: out of town, doctor ED Physician Beck Simental HPI: 05/05 11:19 This 53 yrs old Male presents to ER via Wheelchair with complaints of kdr Abdominal Pain, Nausea. 11:19 The patient presents with abdominal pain in the epigastric area, in the upper abdomen. kdr Onset: The symptoms/episode began/occurred gradually, 2 month(s) ago. The symptoms radiate to right back. Associated signs and symptoms: Pertinent positives: nausea and vomiting, Pertinent negatives: constipation, diarrhea, fever, headache, hematuria, palpitations, shortness of breath. The symptoms are described as achy, constant, sharp, steady, waxing/waning. Modifying factors: The symptoms are alleviated by nothing, the symptoms are aggravated by breathing deeply. Severity of pain: At its worst the pain was moderate just prior to arrival, in the emergency department the pain is actually worse. The patient has experienced similar episodes in the past, multiple times, chronically, but today's symptoms are worse, more painful. The patient has been recently seen by a physician: a general surgeon, a starch crab. Historical: - Allergies: 08:54 "everything I take makes me nausous"; ch 08:54 Lyrica; ch - Home Meds: 08:54 Carafate Oral [Active]; OxyContin Oral [Active]; Xanax Oral [Active]; [place] Thyroid 30 ch mg Oral tab [Active]; - PMHx: 08:54 Anxiety; Hepatitis; Hypothyroidism; lyme disease; c4-c7 fused, neck pain; gastritis; ch "mold toxicity"; epstine torres high a ccouple times; - PSHx: 08:54 Cholecystectomy; neck; ch - Immunization history:: Adult Immunizations up to date, Pneumococcal vaccine is not up to date, Flu vaccine is not up to date. - Social history:: Smoking status: Patient/guardian denies using tobacco, Patient/guardian denies using alcohol, street drugs. - Ebola Screening: : Patient negative for fever greater than or equal to 101.5 degrees Fahrenheit, and additional compatible Ebola Virus Disease symptoms Patient denies exposure to infectious person Patient denies travel to an Ebola-affected area in the 21 days before illness onset No symptoms or risks identified at this time. ROS: 11:19 Constitutional: Negative for fever, chills, he has had 100# weight loss in the last kdr year - is concerned that he may have cancer, Eyes: Negative for injury, pain, redness, and discharge, Neck: Negative for injury, pain, and swelling, Cardiovascular: Negative for chest pain, palpitations, and edema, Respiratory: Negative for shortness of breath, cough, wheezing, and pleuritic chest pain, Back: Negative for injury and pain, : Negative for injury, bleeding, discharge, and swelling, MS/Extremity: Negative for injury and deformity, Skin: Negative for injury, rash, and discoloration, Neuro: Negative for headache, weakness, numbness, tingling, and seizure activity. Psych: Negative for depression, anxiety, suicide ideation, homicidal ideation, and hallucinations, Allergy/Immunology: Negative for hives, rash, and allergies, Endocrine: Negative for neck swelling, polydipsia, polyuria, polyphagia, and marked weight changes, Hematologic/Lymphatic: Negative for swollen nodes, abnormal bleeding, and unusual bruising. 11:19 Abdomen/GI: Positive for abdominal pain, nausea and vomiting, Negative for abdominal distension, dysphagia, hematemesis, black/tarry stool, rectal pain, rectal bleeding, bowel incontinence. Exam: 11:19 Constitutional: This is a well developed, well nourished patient who is awake, alert, kdr and in moderate/severe distress. Head/Face: Normocephalic, atraumatic. Eyes: Pupils equal round and reactive to light, extra-ocular motions intact. Lids and lashes normal. Conjunctiva and sclera are non-icteric and not injected. Cornea within normal limits. Periorbital areas with no swelling, redness, or edema. Neck: Trachea midline, no thyromegaly or masses palpated, and no cervical lymphadenopathy. Supple, full range of motion without nuchal rigidity, or vertebral point tenderness. No Meningismus. Chest/axilla: Normal chest wall appearance and motion. Nontender with no deformity. No lesions are appreciated. Cardiovascular: Regular rate and rhythm with a normal S1 and S2. No gallops, murmurs, or rubs. Normal PMI, no JVD. No pulse deficits. Respiratory: Lungs have equal breath sounds bilaterally, clear to auscultation and percussion. No rales, rhonchi or wheezes noted. No increased work of breathing, no retractions or nasal flaring. Back: No spinal tenderness. No costovertebral tenderness. Full range of motion. Skin: Warm, dry with normal turgor. Normal color with no rashes, no lesions, and no evidence of cellulitis. MS/ Extremity: Pulses equal, no cyanosis. Neurovascular intact. Full, normal range of motion. Neuro: Awake and alert, GCS 15, oriented to person, place, time, and situation. Cranial nerves II-XII grossly intact. Motor strength 5/5 in all extremities. Sensory grossly intact. Cerebellar exam normal. Normal gait. Psych: Awake, alert, with orientation to person, place and time. Behavior, mood, and affect are within normal limits. 11:19 Abdomen/GI: Inspection: abdomen appears normal, Bowel sounds: diminished, in all quadrants, Palpation: soft, moderate abdominal tenderness, in the epigastric area and left upper quadrant. Vital Signs: 08:54 BP 126 / 88; Pulse 49; Resp 22; Temp 97.7; Pulse Ox 100% on R/A; Weight 81.65 kg; ch Height 6 ft. 2 in. (187.96 cm); Pain 9/10; 10:08 BP 134 / 85; Pulse 52 MON; Resp 16; Pulse Ox 100% on R/A; sv 11:13 BP 133 / 84; Pulse 68; Resp 18; Pulse Ox 100% on R/A; ag 08:54 Body Mass Index 23.11 (81.65 kg, 187.96 cm) ch 10:08 Sinus bradycardia sv MDM: 11:19 Patient medically screened. kdr 17:31 Data reviewed: vital signs, nurses notes, lab test result(s). kdr 05/05 09:04 Order name: Amylase, Serum; Complete Time: 10:58 kdr 05/05 09:04 Order name: Basic Metabolic Panel; Complete Time: 10:58 kdr 05/05 09:04 Order name: CBC with Diff; Complete Time: 10:58 kdr 05/05 09:04 Order name: Creatinine for Radiology; Complete Time: 10:58 kdr 05/05 09:04 Order name: Hepatic Function; Complete Time: 10:58 kdr 05/05 09:04 Order name: Lipase; Complete Time: 10:58 kdr 05/05 09:04 Order name: Urine Microscopic Only; Complete Time: 10:58 kdr 05/05 09:21 Order name: Urine Dipstick--Ancillary (enter results); Complete Time: 10:58 bd 05/05 09:25 Order name: CT Abd/Pelvis - W/Contrast; Complete Time: 10:58 kdr 05/05 09:04 Order name: IV Saline Lock; Complete Time: 09:40 kdr 05/05 09:04 Order name: Labs collected and sent; Complete Time: 09:26 kdr 05/05 09:04 Order name: Urine Dipstick-Ancillary (obtain specimen); Complete Time: 09:26 kdr Administered Medications: 09:30 Drug: Benadryl 25 mg Route: IVP; Site: left antecubital; sv 10:06 Follow up: Response: No adverse reaction sv 09:30 Drug: NS 0.9% 1000 ml Route: IV; Rate: 1 bolus; Site: left antecubital; sv 11:22 Follow up: Response: No adverse reaction; IV Status: Completed infusion; IV Intake: tw2 1000ml 09:32 Drug: SOLU-Medrol 125 mg Route: IVP; Site: left antecubital; sv 10:07 Follow up: Response: No adverse reaction sv 09:35 Drug: morphine 4 mg Route: IVP; Site: left antecubital; sv 10:00 Follow up: Response: No adverse reaction sv 10:06 Not Given (Patient Refused; Pt stated it makes him feel worse): Pepcid 20 mg IVP once sv 12:25 Drug: morphine 4 mg Route: IVP; Site: left antecubital; sv 12:45 Follow up: Response: No adverse reaction sv 12:29 Not Given (Patient Refused): Zofran 4 mg IVP once; over 2 minutes sv Disposition: 05/05/18 11:19 Hospitalization ordered by Dinh Malagon for Inpatient Admission. Preliminary diagnosis is Abdominal and pelvic pain - Intractable. - Bed requested for Telemetry/MedSurg (Inpatient). - Status is Inpatient Admission. sv - Condition is Fair. - Problem is an ongoing problem. - Symptoms have improved. UTI on Admission? No Signatures: Dispatcher [employer] EDKizzy Rueda RN RN ch Casandra Oden, RN RN dm5 Hortencia Swanson, RN RN Beck Simental MD MD kdr Gisela Munguia RN tw2 Corrections: (The following items were deleted from the chart) 12:22 11:19 Hospitalization Ordered by Dinh Malagon DO for Inpatient Admission. Preliminary dm5 diagnosis is Abdominal and pelvic pain - Intractable. Bed requested for Telemetry/MedSurg (Inpatient). Status is Inpatient Admission. Condition is Fair. Problem is an ongoing problem. Symptoms have improved. UTI on Admission? No. kdr 13:00 12:22 05/05/2018 11:19 Hospitalization Ordered by Dinh Malagon DO for Inpatient sv Admission. Preliminary diagnosis is Abdominal and pelvic pain - Intractable. Bed requested for Telemetry/MedSurg (Inpatient). Status is Inpatient Admission. Condition is Fair. Problem is an ongoing problem. Symptoms have improved. UTI on Admission? No. dm5
[2018-05-05] MEDS ORDERED: GABAPENTIN 100 MG CAP PO PRN (11:57)
[2018-05-05] MEDS ORDERED: ONDANSETRON 4 MG/2 ML VIAL IV PRN (11:57)
[2018-05-05] MEDS ORDERED: HYDROCODONE/APAP 7.5/325 MG TAB PO PRN (11:57)
[2018-05-05] MEDS ORDERED: ACETAMINOPHEN 500 MG TAB PO PRN (11:57)
[2018-05-05] MEDS ORDERED: SODIUM CHLORIDE 0.9% 10ML INJ IV PRN (11:57)
[2018-05-05] MEDS ORDERED: TRAMADOL HCL 50 MG TAB PO PRN (11:57)
[2018-05-05] MEDS ORDERED: LACTULOSE 20 GM/30 ML UCUP PO PRN (13:08)
[2018-05-05] MEDS: NA CHLORIDE 0.9% 1,000 ML IV SCH ×2 (13:15→22:43)
[2018-05-05 13:19] LABS: C-Reactive Protein < 2.90 mg/L (<3.00)
--- NOTE | 2018-05-05 13:45 | RAD REPORT ---
EXAM DESCRIPTION: US - Abdomen Exam Complete - 05/05/2018 12:43 pm CLINICAL HISTORY: Abdominal pain. epigastric pain, weight loss COMPARISON: Abdomen Exam Limited dated 12/24/2017; Abdomen Pelvis W Contrast dated 05/05/2018 FINDINGS: The liver is mildly prominent in size with the right lobe of the liver measuring 18 cm. No focal liver lesions or intrahepatic biliary dilatation is seen. The gallbladder demonstrates no gallstones, pericholecystic fluid or gallbladder wall thickening. Co mmon bile duct is normal in caliber measuring 6 mm. Both kidneys are normal in size, shape and echotexture. No hydronephrosis, focal lesion of concern or perinephric fluid. Anechoic 5 cm right renal cyst, benign. The spleen is normal in size measuring 12 cm. The pancreas and aorta are obscured by bowel gas. The visualized aspects of the IVC are grossly normal. IMPRESSION: 5 cm right renal cyst. Mild hepatomegaly.
--- NOTE | 2018-05-05 13:54 | P.HP ---
Certification for Inpatient Patient admitted to: Observation With expected LOS: <2 Midnights Patient will require the following post-hospital care: None Practitioner: I am a practitioner with admitting privileges, knowledge of patient current condition, hospital course, and medical plan of care. Services: Services provided to patient in accordance with Admission requirements found in Title 42 Section 412.3 of the Code of Federal Regulations Patient History Date of Service: 05/05/18 Primary Care Provider: Eber Morris; GI-Dr. Ariza; Neurology-Dr. Lynch( [place]) Reason for admission: Abdominal pain, weight loss History of Present Illness: 53-year-old male presented emergency room with abdominal pain and weight loss. Patient reports that he has been having increasing epigastric pain that radiates to the back. It also occurs to the right upper quadrant. Pain comes and goes. Patient reports that he had a cholecystectomy done 2 months ago. Since that time he reports some weight loss. He believes that he has lost about 100 lb in over a year. Patient also reports that he has seen GI as an outpatient. He reports having a EGD done over the past 6 months. He reports a history of gastritis and H pylori. He reports not being able to take medications. He also reports that he had a colonoscopy but this was not well done due to poor prep. Patient also reports a history of Lyme disease. Patient came to the ER for further evaluation. Patient also reports multiple ER visits. Initial blood work shows a normal CBC. BNP unremarkable. LFTs unremarkable. Amylase and lipase unremarkable. Urinalysis unremarkable. Abdominal ultrasound shows no dilation to the biliary system. A 5 cm right renal cyst noted. Mild hepatomegaly noted. CT scan shows no biliary abnormality. Right renal cysts also noted on CT scan. Prominent fecal retention noted. Patient was admitted for observation. When I saw the patient the ER, he appeared comfortable. Patient reporting pain and requested pain medication. Patient reports taking multiple medications for GERD. He also is seen by a neurologist for Lyme disease. Patient appears to have chronic pain. He reports a history of thyroid medication but not taking any medication. Allergies pregabalin [From Lyrica] Allergy (Verified 05/05/18 13:52) Unknown carvedilol [From Coreg] Adverse Reaction (Verified 01/29/18 09:34) panic attacks celecoxib [From Celebrex] Adverse Reaction (Verified 01/29/18 09:34) panic attack, swelling to throat antibiotics Adverse Reaction (Uncoded 01/29/18 09:34) muscle spasms Home medications list reviewed: Yes Home Medications: ALPRAZolam [Xanax] 0.5 mg PO DAILY 01/29/18 Oxycodone HCl [Oxycontin] 10 mg PO DAILY 01/29/18 Thyroid Tab [[place] Thyroid] 30 mg PO DAILY 01/29/18 - Past Medical/Surgical History Has patient received pneumonia vaccine in the past: No -: Lyme disease -: GERD -: History of H pylori gastritis -: Anxiety -: Chronic pain -: Neck surgery x3 -: Cholecystectomy Psychosocial/ Personal History: The patient is . He has 3 children. He is currently disabled. - Family History Father -: Cancer (Colon cancer ) - Social History Smoking Status: Never smoker Alcohol use: Yes CD- Drugs: No Caffeine use: Yes Place of Residence: Home Review of Systems General: Weakness, As per HPI Eyes: Unremarkable ENT: Unremarkable Respiratory: Unremarkable Cardiovascular: Unremarkable Gastrointestinal: Nausea, Vomiting, Abdominal Pain, As per HPI Genitourinary: Unremarkable Musculoskeletal: Back Pain, As per HPI Integumentary: Unremarkable Neurological: Unremarkable Lymphatics: Unremarkable Physical Examination - Vital Signs Temperature: 97.7 F Blood Pressure: 133/84 Pulse: 68 Respirations: 18 - Physical Exam General: Alert, In no apparent distress, Oriented x3, Cooperative, Other ( Patient appears anxious.) HEENT: Atraumatic, Normocephalic, PERRLA, Other (Dry mucous membranes) Neck: Supple, No Thyromegaly Respiratory: Clear to auscultation bilaterally, Normal air movement Cardiovascular: Normal pulses, Regular rate/rhythm Gastrointestinal: Normal bowel sounds, Soft and benign, Non-distended, No masses , No rebound, No guarding, Tenderness (Mild tenderness to the epigastric region) Musculoskeletal: No erythema, No tenderness, No warmth Integumentary: No tenderness/swelling, No erythema, No warmth, No cyanosis Neurological: Normal speech, Normal strength at 5/5 x4 extr, Normal tone, Normal affect - Studies Laboratory Data (last 24 hrs) 05/05/18 09:13: Creatinine 0.70 05/05/18 09:13: WBC 5.6 D, Hgb 15.6, Hct 44.7, Plt Count 275 05/05/18 09:13: Sodium 134 L, Potassium 4.1, BUN 5 L, Creatinine 0.60, Glucose 95, Total Bilirubin 1.0, AST 27, ALT 51, Alkaline Phosphatase 77, Amylase 43, Lipase 110 Assessment and Plan - Problems (Diagnosis) (1) Abdominal pain Current Visit: Yes Status: Acute Plan: Patient reports epigastric pain CT and abdominal ultrasound unremarkable. Will check MRCP. Patient with cholecystectomy 2 months ago. Spoke with surgery. No need for surgical intervention or evaluation. Patient likely has untreated GERD. Will start Protonix IV b.i.d.. Will try to obtain recent EGD and colonoscopy report from his GI specialist. Will consult GI for further recommendation. Will advance diet as tolerated. Will need to investigate for hepatitis. Anticipate discharge in the next 24-48 hr. Qualifiers: Abdominal location: epigastric Qualified Code(s): R10.13 - Epigastric pain (2) GERD (gastroesophageal reflux disease) Current Visit: Yes Status: Chronic Plan: Will need to obtain previous EGD report. Patient reports a history of gastritis. Will start Protonix b.i.d.. GI consulted. Qualifiers: Esophagitis presence: esophagitis presence not specified Qualified Code(s) : K21.9 - Gastro-esophageal reflux disease without esophagitis (3) Helicobacter pylori gastritis Current Visit: Yes Status: Chronic Plan: Patient reports history of H pylori gastritis. It is unclear whether the patient has taking medication recently for this. He reports intolerance to multiple medications/antibiotics. (4) Fecal retention Current Visit: Yes Status: Chronic Plan: CT scan shows fecal retention. Will provide lactulose. (5) Hepatomegaly Current Visit: Yes Status: Chronic Plan: Hepatomegaly noted. Will send for HIV and hepatitis panel. (6) Lyme disease Current Visit: Yes Status: Chronic Plan: Patient seen by neurology up in [place]. Will provide medication. Will need to obtain a list of his medications. (7) Renal cyst Current Visit: Yes Status: Chronic Plan: Right benign renal cyst noted. This can be further monitored as an outpatient. (8) Chronic pain Current Visit: Yes Status: Chronic Plan: Suspect chronic pain syndrome. Patient with history of neck surgery in the past. Patient appears to have chronic abdominal pain. Patient should see pain management as an outpatient to further address. Will try to modify pain medication regimen. We will limit IV pain medication. Will check urine drug screen. Qualifiers: Chronic pain type: chronic pain syndrome Qualified Code(s): G89.4 - Chronic pain syndrome Discharge Plan: Home Plan to discharge in: 24 Hours - Advance Directives Does patient have a Living Will: No Does patient have a Durable POA for Healthcare: No - Code Status/Comfort Care Code Status Assessed: Yes (Patient full code.) Time Spent Managing Pts Care (In Minutes): 55
--- NOTE | 2018-05-05 13:57 | RAD REPORT ---
EXAM DESCRIPTION: RAD - Chest Pa And Lat (2 Views) - 05/05/2018 12:57 pm CLINICAL HISTORY: Epigastric pain, Chest pain Chest pain. COMPARISON: Chest Single View dated 12/24/2017; CHEST SINGLE VIEW dated 08/07/2015; CHEST SINGLE VIEW dated 04/13/2013 FINDINGS: The lungs are mildly emphysematous but clear. The heart is normal in size. No displaced fr actures. IMPRESSION: Mild COPD.
[2018-05-05 14:51] LABS: Urine Appearance CLEAR; Urine Bilirubin NEGATIVE (NEG); Urine Blood NEGATIVE (NEG); Urine Color YELLOW; Urine Glucose NEGATIVE (NEG); Urine Protein NEGATIVE (NEG)
[2018-05-05 14:52] LABS: Urine Microscopic Reflex NO UMIC
[2018-05-05] MEDS ORDERED: LORazepam 2 MG/ML VIAL IV ONE (15:00)
[2018-05-05] MEDS: ENOXAPARIN 40 MG/0.4 ML SQ SCH (16:00)
[2018-05-05 17:23] LABS: Barbiturates NEGATIVE (NEGATIVE); Benzodiazepines NEGATIVE (NEGATIVE); Cocaine NEGATIVE (NEGATIVE); METHAMPHETAM NEGATIVE (NEGATIVE); Methadone NEGATIVE (NEGATIVE); Opiates NEGATIVE (NEGATIVE); Phencyclidine NEGATIVE (NEGATIVE); THC Cannibis NEGATIVE (NEGATIVE)
--- NOTE | 2018-05-05 18:09 | RAD REPORT ---
EXAM DESCRIPTION: MRI - Cholangiogram - 05/05/2018 3:36 pm CLINICAL HISTORY: Epigastric pain, Hx of cholecystectomy COMPARISON: Abdomen Exam Complete dated 05/05/2018; Abdomen Pelvis W Contrast dated 05/05/2018; Abdo men Pelvis W Contrast dated 12/24/2017 FINDINGS: Three-dimensional MRCP was performed using maximum intensity projection reconstruction on the same work station. No intrahepatic biliary tree dilatation is seen. The common bile duct is normal caliber without evide nce of retained stone, stricture or mass. The pancreatic duct is not pathologically dilated. The gallbladder surgically absent. Limited T2 sequences through the abdomen demonstrates no bulky adenopathy, significant free fluid or abscess. Benign right renal cyst. IMPRESSION: Negative MR cholangiogram. Cholecystectomy.
[2018-05-05] MEDS: PANTOPRAZOLE 40 MG INJ IVP SCH (21:22)
[2018-05-05] MEDS: MORPHINE 2 MG/ML SYR IV PRN (21:28)
[2018-05-05] MEDS ORDERED: DIPHENHYDRAMINE 50 MG/ML VIAL IV ONE (22:31)
[2018-05-06] MEDS: MORPHINE 2 MG/ML SYR IV PRN ×3 (04:13→21:08)
[2018-05-06 05:40] LABS: Absolute Lymphocytes (CBC) 1.7 K/uL (0.7-4.9); Absolute Monocytes 0.5 K/uL (0.1-1.3); Absolute Neutrophil 5.8 K/uL (1.8-8.0); Basophils % 0.2 % (0-1.3); Eosinophils % 0.1 % (0-4.4); Hematocrit 37.1 % (39.6-49.0); Lymphocytes % 20.8 % (15.3-44.8); MCH 31.9 pg (27.0-35.0); MCV 90.5 fL (80-100); MPV 9.5 fL (7.6-11.3); RBC Red Blood Cell Count 4.09 M/uL (4.33-5.43)
[2018-05-06 06:07] LABS: ALT/SGPT 42 U/L (12-78); AST/SGOT 23 U/L (15-37); Albumin 3.2 g/dL (3.4-5.0); Alkaline Phosphatase 67 U/L (45-117); BUN Blood Urea Nitrogen 6 mg/dL (7-18); Bicarbonate 28 mmol/L (21-32); Bilirubin Total 0.7 mg/dL (0.2-1.0); Glucose Level 100 mg/dL (74-106); Potassium 3.9 mmol/L (3.5-5.1); Protein, Total 6.3 g/dL (6.4-8.2); Sodium Level 139 mmol/L (136-145)
[2018-05-06] MEDS ORDERED: KCL 20 MEQ/100 mL IVPB 20 MEQ/100 ML BAG IV SCH (06:30)
[2018-05-06] MEDS: PANTOPRAZOLE 40 MG INJ IVP SCH ×2 (08:54→20:53)
[2018-05-06] MEDS: NA CHLORIDE 0.9% 1,000 ML IV SCH ×2 (08:54→16:53)
[2018-05-06] MEDS ORDERED: Ringers Lactate 1,000 ML IV ONE (10:46)
--- NOTE | 2018-05-06 10:56 | P.PN ---
Subjective Date of Service: 05/06/18 Primary Care Provider: Eber Morris; GI-Dr. Ariza; Neurology-Dr. Lynch( [place]) Chief Complaint: Abdominal pain, weight loss Subjective: Other (Patient still reports mild abdominal pain to the epigastric region. Patient NPO for EGD today.) Physical Examination - Vital Signs Temperature: 97.6 F Blood Pressure: 119/66 Pulse: 51 Respirations: 16 Pulse Ox (%): 100 - Physical Exam General: Alert, In no apparent distress, Oriented x3, Cooperative HEENT: Atraumatic Neck: Supple Respiratory: Clear to auscultation bilaterally, Normal air movement Cardiovascular: Normal pulses, Regular rate/rhythm Gastrointestinal: Normal bowel sounds, Soft and benign, Non-distended, No masses , No rebound, No guarding, Tenderness (Patient reports pain to the epigastric region) Musculoskeletal: No erythema, No tenderness, No warmth Integumentary: No tenderness/swelling, No erythema, No warmth, No cyanosis Neurological: Normal speech, Normal strength at 5/5 x4 extr, Normal tone, Normal affect - Studies Medications List Reviewed: Yes Assessment & Plan - Problems (Diagnosis) (1) Abdominal pain Onset Date: 05/06/18 Current Visit: Yes Status: Acute Plan: Patient NPO for EGD today. Await further recommendations from GI. So far a CT scan, abdominal ultrasound and MRCP unremarkable. Will continue with IV Protonix. Possible discharge in the next 24 hr if okay with GI. Await findings from EGD. Qualifiers: Abdominal location: epigastric Qualified Code(s): R10.13 - Epigastric pain (2) GERD (gastroesophageal reflux disease) Onset Date: 05/06/18 Current Visit: Yes Status: Chronic Plan: Will need to obtain previous EGD report. Patient is to have EGD today by GI. Continue PPI. Qualifiers: Esophagitis presence: esophagitis presence not specified Qualified Code(s) : K21.9 - Gastro-esophageal reflux disease without esophagitis (3) Helicobacter pylori gastritis Onset Date: 05/06/18 Current Visit: Yes Status: Chronic Plan: Patient reports history of H pylori gastritis. It is unclear whether the patient has taking medication recently for this. He reports intolerance to multiple medications/antibiotics. (4) Fecal retention Onset Date: 05/06/18 Current Visit: Yes Status: Chronic Plan: CT scan shows fecal retention. Will provide lactulose. (5) Hepatomegaly Onset Date: 05/06/18 Current Visit: Yes Status: Chronic Plan: Hepatomegaly noted. Will send for HIV and hepatitis panel. (6) Lyme disease Onset Date: 05/06/18 Current Visit: Yes Status: Chronic Plan: Patient seen by neurology up in [place]. Will provide medication. Will need to obtain a list of his medications. (7) Renal cyst Onset Date: 05/06/18 Current Visit: Yes Status: Chronic Plan: Right benign renal cyst noted. This can be further monitored as an outpatient. (8) Chronic pain Onset Date: 05/06/18 Current Visit: Yes Status: Chronic Plan: Suspect chronic pain syndrome. Patient with history of neck surgery in the past. Patient appears to have chronic abdominal pain. Patient should see pain management as an outpatient to further address. Will try to modify pain medication regimen. We will limit IV pain medication. Urine drug screen negative Qualifiers: Chronic pain type: chronic pain syndrome Qualified Code(s): G89.4 - Chronic pain syndrome Discharge Plan: Home Plan to discharge in: 24 Hours Time Spent Managing Pts Care (In Minutes): 55
[2018-05-06] MEDS ORDERED: PROPOFOL 200 MG/20 ML VIAL IV ONE ×2 (11:28)
[2018-05-06] MEDS ORDERED: LIDOCAINE 1% MPF 2 ML AMPULE ONE (11:28)
--- NOTE | 2018-05-06 12:29 | ENDO RPT ---
[address], [address] EGD PROCEDURE REPORT EXAM DATE: 05/06/2018 PATIENT NAME: Reji Rodrigez MR#: [id number] BIRTHDATE: 1965 ATTENDING: Gary Canchola Dr STATUS: inpatient EAP CONSULTANT: Wendy Acuna and Asuncion Goldsmith RN INDICATIONS: The patient is a 53 yr old Male here for an EGD due to mid epigastric abdominal pain, nausea, and weight loss PROCEDURE PERFORMED: EGD with biopsy MEDICATIONS: Per Anesthesia. TOPICAL ANESTHETIC: none CONSENT: The patient understands the risks and benefits of the procedure and understands that these risks include, but are not limited to: sedation, allergic reaction, infection, perforation and/or bleeding. Alternative means of evaluation and treatment include, among others: physical exam, x-rays, and/or surgical intervention. The patient elects to proceed with this endoscopic procedure. DESCRIPTION OF PROCEDURE: During intra-op preparation period all mechanical medical equipment was checked for proper function. Hand hygiene and appropriate measures for infection prevention was taken. Procedure, possible complications, and alternatives including but not limited to the possibility of bleeding, perforation, tear, infection, sepsis, need for surgery, need for blood transfusion, and anesthesia related complications were explained to the patient. After the risks, benefits and alternatives of the procedure were thoroughly explained, Informed consent was verified, confirmed and timeout was successfully executed by the treatment team. The patient was placed in the left lateral position. The patient was anesthetized with topical anesthesia. Through the anesthetized oropharyngeal area, the scope was passed without any difficulty. The EG-[id number] ([id number]) endoscope was introduced through the mouth and advanced to the second portion of the duodenum. Retroflexed views revealed no abnormalities. The gastroscope was then slowly withdrawn and removed. Moderate gastritis was found in the body/fundus of the stomach. Multiple biopsies were obtained and sent to pathology. 3 mm sessile polyp in the antrum, s/p biopsy. Multiple (6) erosions were found in the antrum. 4 mm bulb of the duodenum. ADVERSE EVENTS: There were no complications. IMPRESSIONS: 1. Moderate gastritis in the body/fundus of the stomach, s/p biopsies 2. 3 mm sessile polyp in the antrum, s/p biopsy 3. Multiple (6) erosions in the antrum of the duodenum RECOMMENDATIONS: 1. await biopsy results 2. acid suppression therapy REPEAT EXAM: Gary Canchola Dr eSigned: Gary Canchola Dr 05/06/2018 12:02 PM cc: Dinh Malagon CPT CODES: ICD9 CODES: PATIENT NAME: Reji Rodrigez MR#: [id number]
[2018-05-06] MEDS: ENOXAPARIN 40 MG/0.4 ML SQ SCH (16:52)
[2018-05-06] MEDS ORDERED: DIPHENHYDRAMINE 50 MG/ML VIAL IV ONE (19:52)
[2018-05-06] MEDS: ENSURE CLEAR 200 ML CAN PO SCH (21:00)
[2018-05-07] MEDS: NA CHLORIDE 0.9% 1,000 ML IV SCH (04:07)
[2018-05-07 05:01] LABS: Absolute Lymphocytes (CBC) 1.9 K/uL (0.7-4.9); Absolute Monocytes 0.3 K/uL (0.1-1.3); Absolute Neutrophil 2.8 K/uL (1.8-8.0); Basophils % 0.6 % (0-1.3); Eosinophils % 1.3 % (0-4.4); Lymphocytes % 37.4 % (15.3-44.8); MCH 31.9 pg (27.0-35.0); Monocytes % 6.8 % (3.3-12.3); RBC Red Blood Cell Count 4.18 M/uL (4.33-5.43)
[2018-05-07 05:30] LABS: ALT/SGPT 51 U/L (12-78); AST/SGOT 30 U/L (15-37); Albumin 3.3 g/dL (3.4-5.0); Alkaline Phosphatase 67 U/L (45-117); BUN Blood Urea Nitrogen 10 mg/dL (7-18); Bicarbonate 30 mmol/L (21-32); Bilirubin Total 0.8 mg/dL (0.2-1.0); Glucose Level 80 mg/dL (74-106); Potassium 3.9 mmol/L (3.5-5.1); Protein, Total 6.5 g/dL (6.4-8.2); Sodium Level 142 mmol/L (136-145)
[2018-05-07] MEDS ORDERED: KCL 20 MEQ/100 mL IVPB 20 MEQ/100 ML BAG IV SCH (07:00)
--- NOTE | 2018-05-07 08:46 | P.DS ---
Admission Date: 05/05/18 Discharge Date: 05/07/18 Primary Care Provider: Eber Morris; GI-Dr. Ariza; Neurology-Dr. Lynch( [place]) Disposition: ROUTINE DISCHARGE Discharge Condition: GOOD Reason for Admission: Abdominal pain, weight loss Consultations: GI-Dr. Canchola Procedures: CT scan: COMPARISON: Abdomen Pelvis W Contrast dated 12/24/2017 TECHNIQUE: Biphasic CT imaging of the abdomen and pelvis was performed with 100 ml non-ionic IV contrast. All CT scans are performed using dose optimization technique as appropriate and may include automated exposure control or mA/KV adjustment according to patient size. FINDINGS: The lung bases are clear.Cholecystectomy clips. The liver, spleen, pancreas, adrenal glands and left kidney are within normal limits. Benign 4.4 cm right renal cyst. No bowel obstruction, free air, free fluid or abscess. Prominent fecal retention. The appendix is normal. No evidence of significant lymphadenopathy. No suspicious bony findings. IMPRESSION: No acute intra-abdominal or pelvic finding. Abdominal ultrasound: COMPARISON: Abdomen Exam Limited dated 12/24/2017; Abdomen Pelvis W Contrast dated 05/05/2018 FINDINGS: The liver is mildly prominent in size with the right lobe of the liver measuring 18 cm. No focal liver lesions or intrahepatic biliary dilatation is seen. The gallbladder demonstrates no gallstones, pericholecystic fluid or gallbladder wall thickening. Common bile duct is normal in caliber measuring 6 mm. Both kidneys are normal in size, shape and echotexture. No hydronephrosis, focal lesion of concern or perinephric fluid. Anechoic 5 cm right renal cyst, benign. The spleen is normal in size measuring 12 cm. The pancreas and aorta are obscured by bowel gas. The visualized aspects of the IVC are grossly normal. IMPRESSION: 5 cm right renal cyst. Mild hepatomegaly. MRCP: COMPARISON: Abdomen Exam Complete dated 05/05/2018; Abdomen Pelvis W Contrast dated 05/05/2018; Abdomen Pelvis W Contrast dated 12/24/2017 FINDINGS: Three-dimensional MRCP was performed using maximum intensity projection reconstruction on the same work station. No intrahepatic biliary tree dilatation is seen. The common bile duct is normal caliber without evidence of retained stone, stricture or mass. The pancreatic duct is not pathologically dilated. The gallbladder surgically absent. Limited T2 sequences through the abdomen demonstrates no bulky adenopathy, significant free fluid or abscess. Benign right renal cyst. IMPRESSION: Negative MR cholangiogram. Cholecystectomy. EGD: EGD performed by GI. Moderate gastritis in the body and fundus of the stomach noted. Biopsies obtained. 3 mm sessile polyp in the antrum noted. Biopsy obtained. Multiple erosions in the antrum of the duodenum - Problems (1) Abdominal pain Onset Date: 05/06/18 Current Visit: Yes Status: Acute Qualifiers: Abdominal location: epigastric Qualified Code(s): R10.13 - Epigastric pain (2) GERD (gastroesophageal reflux disease) Onset Date: 05/06/18 Current Visit: Yes Status: Chronic Qualifiers: Esophagitis presence: esophagitis presence not specified Qualified Code(s) : K21.9 - Gastro-esophageal reflux disease without esophagitis (3) Fecal retention Onset Date: 05/06/18 Current Visit: Yes Status: Chronic (4) Hepatomegaly Onset Date: 05/06/18 Current Visit: Yes Status: Chronic (5) Lyme disease Onset Date: 05/06/18 Current Visit: Yes Status: Chronic (6) Renal cyst Onset Date: 05/06/18 Current Visit: Yes Status: Chronic (7) Chronic pain Onset Date: 05/06/18 Current Visit: Yes Status: Chronic Qualifiers: Chronic pain type: chronic pain syndrome Qualified Code(s): G89.4 - Chronic pain syndrome (8) Duodenal erosion Current Visit: Yes Status: Acute (9) Gastritis Current Visit: Yes Status: Acute Qualifiers: Gastritis type: unspecified gastritis Chronicity: acute Gastritis bleeding: without bleeding Qualified Code(s): K29.00 - Acute gastritis without bleeding (10) Gastric polyp Current Visit: Yes Status: Acute (11) Fatty liver Current Visit: Yes Status: Chronic (12) Anxiety Current Visit: Yes Status: Chronic Brief History of Present Illness: 53-year-old male presented emergency room with abdominal pain and weight loss. Patient reports that he has been having increasing epigastric pain that radiates to the back. It also occurs to the right upper quadrant. Pain comes and goes. Patient reports that he had a cholecystectomy done 2 months ago. Since that time he reports some weight loss. He believes that he has lost about 100 lb in over a year. Patient also reports that he has seen GI as an outpatient. He reports having a EGD done over the past 6 months. He reports a history of gastritis and H pylori. He reports not being able to take medications. He also reports that he had a colonoscopy but this was not well done due to poor prep. Patient also reports a history of Lyme disease. Patient came to the ER for further evaluation. Patient also reports multiple ER visits. Initial blood work shows a normal CBC. BNP unremarkable. LFTs unremarkable. Amylase and lipase unremarkable. Urinalysis unremarkable. Abdominal ultrasound shows no dilation to the biliary system. A 5 cm right renal cyst noted. Mild hepatomegaly noted. CT scan shows no biliary abnormality. Right renal cysts also noted on CT scan. Prominent fecal retention noted. Patient was admitted for observation. When I saw the patient the ER, he appeared comfortable. Patient reporting pain and requested pain medication. Patient reports taking multiple medications for GERD. He also is seen by a neurologist for Lyme disease. Patient appears to have chronic pain. He reports a history of thyroid medication but not taking any medication. Hospital Course: Patient presented with abdominal pain. The patient has had chronic pain for quite some time but came in acutely. Patient was admitted for further evaluation. GI was consulted. CT scan of the abdomen showed no acute abnormality. A 5 cm renal cysts likely benign was noted. Abdominal ultrasound obtained showed no acute findings except mild fatty liver. MRCP was unremarkable. GI recommended EGD. EGD was performed. Moderate gastritis in the body and fundus of the stomach was noted. Gastric polyp was noted to the antrum of the stomach as well. Multiple erosions in the antrum of the duodenum was noted. Multiple biopsies were obtained. GI recommended proton pump inhibitor. His diet was advanced. Dietary also need recommendations for his diet. At discharge patient will continue with Protonix 40 mg 1 pill twice daily. Recommendation is for the patient follow up with GI as an outpatient to follow up biopsy reports. Patient may require further evaluation if this persists. Will need to consider autoimmune causes or related to his Lyme disease. Patient has Lyme disease. Patient will need to follow up with his Lyme disease specialist. At discharge. RANDELL level and hepatitis panel pending. This will need to followed up by his PCP or GI. Patient has renal cyst to the right side. This appears benign. This can be followed up and monitored by his PCP. Patient with fatty liver. Recommendation is for the patient to follow up with GI to further assess as an outpatient. Vital Signs/Physical Exam: Temp Pulse Resp BP Pulse Ox 97.6 F 45 L 18 116/67 98 05/07/18 04:00 05/07/18 04:00 05/07/18 04:00 05/07/18 04:00 05/07/18 04:00 General: Alert, In no apparent distress, Oriented x3, Cooperative HEENT: Atraumatic Neck: Supple Respiratory: Clear to auscultation bilaterally, Normal air movement Cardiovascular: Normal pulses, Regular rate/rhythm Gastrointestinal: Normal bowel sounds, Soft and benign, Non-distended, No tenderness, No masses, No rebound, No guarding Musculoskeletal: No erythema, No tenderness, No warmth Integumentary: No tenderness/swelling, No erythema, No warmth, No cyanosis Neurological: Normal speech, Normal strength at 5/5 x4 extr, Normal tone, Normal affect Laboratory Data at Discharge: WBC 5.1 K/uL (4.3-10.9) D 05/07/18 04:37 Hgb 13.3 g/dL (13.6-17.9) L 05/07/18 04:37 Hct 38.0 % (39.6-49.0) L 05/07/18 04:37 Plt Count 208 K/uL (152-406) 05/07/18 04:37 Sodium 142 mmol/L (136-145) 05/07/18 04:37 Potassium 3.9 mmol/L (3.5-5.1) 05/07/18 04:37 BUN 10 mg/dL (7-18) 05/07/18 04:37 Creatinine 0.60 mg/dL (0.55-1.3) 05/07/18 04:37 Glucose 80 mg/dL (74-106) 05/07/18 04:37 Magnesium 2.0 mg/dL (1.8-2.4) 05/07/18 04:37 Total Bilirubin 0.8 mg/dL (0.2-1.0) 05/07/18 04:37 AST 30 U/L (15-37) 05/07/18 04:37 ALT 51 U/L (12-78) 05/07/18 04:37 Alkaline Phosphatase 67 U/L (45-117) 05/07/18 04:37 Amylase 43 U/L (25-115) 05/05/18 09:13 Lipase 110 U/L (73-393) 05/05/18 09:13 Home Medications: ALPRAZolam [Xanax*] 0.5 mg PO DAILY 01/29/18 Oxycodone HCl [Oxycontin] 10 mg PO DAILY 01/29/18 Thyroid Tab [[place] Thyroid*] 30 mg PO DAILY 01/29/18 Pantoprazole [Protonix Tab] 40 mg PO BID #60 tab 05/07/18 New Medications: Pantoprazole [Protonix Tab] 40 mg PO BID #60 tab Patient Discharge Instructions: 1. Patient will need to follow up his PCP in 1 week to follow up this hospitalization. 2. Patient presented with abdominal pain. Patient was admitted for further evaluation. GI was consulted. CT scan of the abdomen showed no acute abnormality. A 5 cm renal cyst likely benign was noted. Abdominal ultrasound obtained showed no acute findings except mild fatty liver. MRCP was unremarkable. GI recommended EGD. EGD was performed. Moderate gastritis in the body and fundus of the stomach was noted. Gastric polyp was noted to the antrum of the stomach as well. Multiple erosions in the antrum of the duodenum was noted. Multiple biopsies were obtained. GI recommended proton pump inhibitor. His diet was advanced. Dietary also made recommendations for his diet. At discharge patient will continue with Protonix 40 mg 1 pill twice daily. Recommendation is for the patient follow up with GI as an outpatient to follow up biopsy reports. Patient may require further evaluation if this persists. Will need to consider autoimmune causes or related to his Lyme disease. 3. Patient has Lyme disease. Patient will need to follow up with his Lyme disease specialist. Patient takes chronic pain medication. Patient continue with his medications. Patient should follow up with his pain specialist to refill. 4. At discharge. RANDELL level and hepatitis panel pending. This will need to followed up by his PCP or GI. 5. Patient has renal cyst to the right side. This appears benign. This can be followed up and monitored by his PCP. 6. Patient with fatty liver. Recommendation is for the patient to follow up with GI to further assess as an outpatient. 7. Patient has anxiety. Patient will continue with Xanax 0.5 mg daily. Further adjustment can be done by his PCP. Diet: [place] diet Activity: Ad justyna Time spent managing pt's care (in minutes): 55
[2018-05-07] MEDS: ENSURE CLEAR 200 ML CAN PO SCH (09:00)
[2018-05-07] MEDS ORDERED: THYROID 30 MG TAB PO SCH (09:00)
[2018-05-07] MEDS: PANTOPRAZOLE 40 MG INJ IVP SCH (09:17)
[2018-05-07] MEDS: MORPHINE 2 MG/ML SYR IV PRN (10:32)
[2018-05-07 13:22] LABS: HIV 1/2 Antibody Diff Not indicated.; HIV AG/AB 4TH GEN Non-reactive (Non-reactive)
--- NOTE | 2018-05-07 15:57 | CON ---
Date of Consultation: 05/06/2018 Reason For Consultation: Midepigastric pain that is persistent for months with weight loss. History Of Present Illness: This patient is a 53-year-old white male with history of peptic ulcer di sease, who has been having midepigastric pain for almost the entire year. Patient states he went for laparoscopic cholecystectomy 2-3 years ago, has lost 30 pounds since that time. He was lost 100 gio nds over the past year, however; says that he cannot eat because of the pain, it has been ongoing for over this year long period. The patient had an EGD and colonoscopy performed by Dr. Fuller at the [facility] where he says peptic ulcer was diagnosed. Colonoscopy was limited and co uld not be completed he stated. Also, on EGD, he had Helicobacter pylori positive gastritis he repor ts. He also has nausea, fevers, chills, and night sweats. He denies any emesis. No hematemesis. N o coffee-ground emesis, melena, hematochezia. Past Medical History: Significant for peptic ulcer disease diagnosed 3 months ago, it appears with t he EGD and colonoscopy by Dr. Fuller in [facility] He has a history of cholecystectomy per formed 3 months ago; history of Helicobacter pylori gastritis; anxiety; chronic pain; neck surgery x3 ; and cholecystectomy; Lyme disease. Allergies: HE HAS ALLERGIES TO LYRICA, COREG, CELEBREX. Home Medications: Include Xanax, OxyContin, and [place] Thyroid. Family History: Father is alive with skin cancer. Mother of myocardial infarction. He states his grandfather had colon cancer. Social History: He is , 3 children. No tobacco. No alcohol. Review of Systems: The patient has midepigastric pain, nausea, fevers, chills, night sweats, headaches, constipation, ch est pain, and gastric reflux disease. The patient denies any melena, hematochezia, hematemesis, coff ee-ground emesis, hematuria, dysuria, polydipsia, hemoptysis. No shortness of breath. No seizure, s yncope. No lower extremity edema, paresthesias, muscle aches, joint aches, backaches. He does have some anxiety, and depression is questionable. Physical Examination: Vital Signs: The patient is 6 feet 2 inches, 172 pounds. BMI 22.1 kg/meter square. He has a temper ature of 97.6 degrees Fahrenheit, pulse 51, respirations 16, blood pressure 119/66, O2 saturation 100 %. HEENT: Normocephalic and atraumatic. Anicteric. Pupils equal, round, and reactive to light. Extra ocular movements are intact. Oropharynx is clear. Neck: Supple. No masses. Respirations: Clear to auscultation bilaterally. Cardiac: Regular. No gallops or rubs. Gastrointestinal: Positive bowel sounds. Soft, nondistended. Pain in the midepigastric, generalize d into entire abdomen. The patient reports 7/10 pain now and maximum 10/10. He has no hepatosplenom egaly. Positive for guarding, but no rebound. Extremities: No clubbing, cyanosis, or edema. 2+ pulses. Neuro: : Alert and oriented X3. Grossly nonfocal; 5/5 motor, sensation to light touch. Data: The patient has a white count of 8.0, hemoglobin 13.1, hematocrit 37, MCV of 91, platelet coun t 224, polys of 73%, lymphocytes 12%, monocytes 6%. He has a sodium 139, potassium 3.9, chloride 104 , bicarb 28, BUN 6, creatinine of 0.6, glucose 100, calcium 8.2, magnesium 2.0, total bilirubin 0.7, AST 23, ALT 42, alkaline phosphatase 67. C-reactive protein of less than 2.9, total protein 6.3, alb umin 3.2, globulin 3.1, lipase 110, normal. UA was unremarkable. Urine tox screen was negative. CT of abdomen and pelvis was negative. Ultrasound abdomen revealed 5-cm renal cyst, mild hepatomegaly, and MRCP was negative with cholecystectomy changes. Impression: Midepigastric pain with history of peptic ulcer disease, need to investigate with EGD. Maximal pain 10/10, currently 7/10. He says he could not tolerate Nexium or Protonix, Prilosec, Luz Maria fate; they made his symptoms worse with nausea, fevers, chills, night sweats for 2 months. He has lo st approximately 30 pounds since his cholecystectomy 3 months ago and is 100 pounds over the past yea r with the midepigastric pain during that time. Prior EGD at [facility] revealed Helicobacter pyl verona-positive gastritis and peptic ulcer disease. Colonoscopy at that time was limited by Dr. Cristine matos at [facility]. He also has headaches, constipation, chest pain, and gastroesophageal reflux disease. Recommendation: 1.Proceed with EGD. 2.PPI therapy. 3.Keep patient n.p.o. CHARLIE/SAURAV Voice ID: [id number] Report ID: [id number]
[2018-05-08 03:45] LABS: HBsAG Nonreactive (Nonreactive); Hepatitis A IgM Antibody Nonreactive
== END 2018-05-07 13:04 | disposition home or self-care (01) ==
LOC: ER 08:45 → ERHOLD 11:46 → 2ND 12:44
PROVIDERS: ADMIT Family Medicine; ATTEND Family Medicine
PROC: 0DB78ZX Excision of Stomach, Pylorus, Via Natural or Artificial Opening Endoscopic, Diagnostic (ICD-10-PCS; 2018-05-06)
PROC: 0DB68ZX Excision of Stomach, Via Natural or Artificial Opening Endoscopic, Diagnostic (ICD-10-PCS; principal; 2018-05-06 11:00)
DX: K29.00 Acute gastritis without bleeding (principal); B96.81 Helicobacter pylori [H. pylori] as the cause of diseases classified elsewhere; K31.7 Polyp of stomach and duodenum; J44.9 Chronic obstructive pulmonary disease, unspecified; R16.0 Hepatomegaly, not elsewhere classified; F41.9 Anxiety disorder, unspecified; K59.00 Constipation, unspecified; K21.9 Gastro-esophageal reflux disease without esophagitis; A69.20 Lyme disease, unspecified; N28.1 Cyst of kidney, acquired; G89.4 Chronic pain syndrome; K26.9 Duodenal ulcer, unspecified as acute or chronic, without hemorrhage or perforation; Z88.6 Allergy status to analgesic agent; Z88.8 Allergy status to other drugs, medicaments and biological substances; E03.9 Hypothyroidism, unspecified; Z98.1 Arthrodesis status
CPT/HCPCS: 36415 ×2; 43239; 71046; 74177; 74181; 76700; 80048; 80053 ×2; 80074; 80076; 80307 ×8; 82150; 82607; 82941; 83690; 83735 ×2; 84439; 84443; 85025 ×3; 85652; 86038; 86140; 87040 ×2; 87389; 88305; 88312; 96361; 96374; 96375; 99285; C9113 ×2; J1650 ×2; J2001; J2270 ×5; J2930; J7030 ×6; Q9967; 81003; 81015; G0378

== ENCOUNTER 2019-01-10 18:40 | Emergency (ER) | payer OTHER ==
--- OUTSIDE RECORDS SUMMARY | 2019-01-10 18:43 | XMS REPORT | Clinical Summary ---
:1965 Author Organization [facility] Address [address] [place] [address] Care Team Providers Name Role Phone Starr Morris Primary Care Provider Allergies Active Allergy Reactions Severity Noted Date Comments Carvedilol Rash Low 05/19/2018 Famciclovir Other (See Comments) 05/19/2018 Chest pain, panic attack Pregabalin Anaphylaxis High 05/19/2018 Valacyclovir Other (See Comments) 05/19/2018 Chest pain, panic attack Medications Medication Sig Dispensed Refills Start Date End Date Status ALPRAZolam (XANAX) Take 0.25 mg by 0 Discontinued 0.25 MG tablet mouth 3 (three) 8 times a day as needed for anxiety. oxyCODone Take 20 mg by 0 Discontinued (ROXICODONE) 20 MG mouth 2 (two) 8 tablet times a day. thyroid, pork, Take 30 mg by 0 Discontinued (ARMOUR THYROID) mouth daily. 8 30 mg tablet folic acid Take 1 tablet (1 30 tablet 0 05/22/2018 (FOLVITE) 1 MG mg total) by 8 tablet mouth daily for 30 days. multivitamin with Take 1 tablet by 30 tablet 0 05/22/2018 minerals tablet mouth daily for 8 30 days. thiamine Take 1 tablet 30 tablet 0 05/22/2018 mononitrate, vit (100 mg total) 8 B1, (B-1) 100 mg by mouth daily tablet for 30 days. pantoprazole Take 1 tablet 60 tablet 0 05/21/2018 (PROTONIX) 40 MG (40 mg total) by 8 EC tablet mouth 2 (two) times a day for 30 days. traMADol (ULTRAM) Take 1 tablet 30 tablet 0 08/24/2018 50 mg tablet (50 mg total) by 9 mouth every 6 (six) hours as needed for severe pain for up to 30 days. pantoprazole Take 1 tablet 60 tablet 0 08/24/2018 (PROTONIX) 40 MG (40 mg total) by 9 EC tablet mouth 2 (two) times a day for 30 days. bismuth Take 30 mL by 118 mL 0 08/26/2018 subsalicylate mouth every 6 9 (PEPTO BISMOL) 262 (six) hours as mg/15 mL needed for suspension indigestion for up to 30 days. hydrOXYzine Take 5 mL (10 mg 118 mL 0 08/26/2018 (ATARAX) 10 mg/5 total) by mouth 9 mL syrup 3 (three) times a day with meals for 30 days. docusate sodium Take 1 capsule 60 capsule 0 08/26/2018 (COLACE) 100 MG (100 mg total) 9 capsule by mouth 2 (two) times a day for 30 days. Active Problems Problem Noted Date Chest pain in adult 08/01/2018 Abdominal pain 05/19/2018 Generalized abdominal pain 05/19/2018 Overview: Added automatically from request for surgery [id number] Weight loss 05/19/2018 Overview: Added automatically from request for surgery [id number] Encounters Date Type Specialty Care Team Description 08/23/2018 [facility] General Internal Freya Paul Abdominal pain, unspecified abdominal location (Primary Dx); - Encounter Medicine MD Hakan Generalized abdominal pain; 08/26/2018 Weight loss; Chest pain in adult; Somatoform disorder; Constipation, unspecified constipation type 08/22/2018 Intake Access N/A 08/01/2018 [facility] Radiology Samaria Davis No Show Encounter MD José Miguel 08/01/2018 [facility] Cardiology La Naylor Chest pain in adult ( Primary Dx); - Encounter MD Palak H/O pleurisy 08/05/2018 Severiano Black MD Nguyen, Leanne, MD 07/25/2018 Transcribe Orders Radiology Samaria Davis Liver enzyme MD José Miguel elevation (Primary Dx) 05/21/2018 Anesthesia Event Gastroenterology Halima Cabezas RN 05/21/2018 Surgery Gastroenterology Abner Ferrari COLONOSCOPY with Mohammad, DO polypectomy by hot snare, submucosal injection of eleview, control of bleed with clip application 05/19/2018 Emergency General Internal Weinberg, Abdominal pain, unspecified abdominal location (Primary Dx); - Medicine MD Nicola Weight loss; 05/21/2018 Adal Sotelo, Generalized abdominal pain MD Lyons, Dung Maya MD after 01/09/2018 Family History Medical History Relation Name Comments Skin cancer Father Heart attack Mother Colon cancer Paternal Grandfather Relation Name Status Comments Father Mother Paternal Grandfather Social History Tobacco Use Types Packs/Day Years Used Date Never Smoker Smokeless Tobacco: Never Used Alcohol Use Drinks/Week oz/Week Comments No Sex Assigned at Date Recorded Not on file Job Start Date Occupation Industry Not on file Not on file Not on file Travel History Travel Start Travel End No recent travel history available. Last Filed Vital Signs Vital Sign Reading Time Taken Blood Pressure 128/77 08/26/2018 5:25 PM HISTOTECHNOLOGIST Pulse 46 08/26/2018 5:25 PM HISTOTECHNOLOGIST Temperature 35.7 C (96.3 F) 08/26/2018 5:25 PM HISTOTECHNOLOGIST Respiratory Rate 17 08/26/2018 5:25 PM HISTOTECHNOLOGIST Oxygen Saturation 100% 08/26/2018 5:25 PM HISTOTECHNOLOGIST Inhaled Oxygen Concentration - - Weight 70.9 kg (156 lb 6.4 oz) 08/23/2018 3:00 AM HISTOTECHNOLOGIST Height 188 cm (6' 2") 08/23/2018 3:00 AM HISTOTECHNOLOGIST Body Mass Index 20.08 08/23/2018 3:00 AM HISTOTECHNOLOGIST Plan of Treatment Health Maintenance Due Date Last Done Comments COLON CANCER SCREENING 2014 SHINGLES VACCINES (#1) 2014 INFLUENZA VACCINE 04/16/2019 Implants Implanted Type Area Tape Librarian Device Identifier Shelf Expiration Model / Date Serial / Lot Titinuim C4/ C7 Procedures Procedure Name Priority Date/Time Associated Comments Diagnosis FL UGI W AIR HD BA AND SMALL Routine 08/26/2018 Results for BOWEL 4:55 PM HISTOTECHNOLOGIST this procedure are in the results section. PROTHROMBIN TIME WITH INR Routine 08/26/2018 Results for 5:30 AM HISTOTECHNOLOGIST this procedure are in the results section. HC COMPLETE BLD COUNT W/AUTO Routine 08/26/2018 Results for DIFF 5:00 AM HISTOTECHNOLOGIST this procedure are in the results section. ESTIMATED GFR Routine 08/26/2018 Results for 4:00 AM HISTOTECHNOLOGIST this procedure are in the results section. COMPREHENSIVE METABOLIC PANEL Routine 08/26/2018 Results for 4:00 AM HISTOTECHNOLOGIST this procedure are in the results section. XR LUMBAR SPINE 2 OR 3 VW STAT 08/24/2018 Results for 2:51 PM HISTOTECHNOLOGIST this procedure are in the results section. HC COMPLETE BLD COUNT W/AUTO Routine 08/24/2018 Results for DIFF 6:06 AM HISTOTECHNOLOGIST this procedure are in the results section. AMMONIA LEVEL Routine 08/24/2018 Results for 6:06 AM HISTOTECHNOLOGIST this procedure are in the results section. PHOSPHORUS LEVEL Routine 08/24/2018 Results for 4:00 AM HISTOTECHNOLOGIST this procedure are in the results section. IONIZED CALCIUM Routine 08/24/2018 Results for 4:00 AM HISTOTECHNOLOGIST this procedure are in the results section. ESTIMATED GFR Routine 08/24/2018 Results for 4:00 AM HISTOTECHNOLOGIST this procedure are in the results section. MAGNESIUM LEVEL Routine 08/24/2018 Results for 4:00 AM HISTOTECHNOLOGIST this procedure are in the results section. COMPREHENSIVE METABOLIC PANEL Routine 08/24/2018 Results for 4:00 AM HISTOTECHNOLOGIST this procedure are in the results section. SEDIMENTATION RATE Routine 08/23/2018 Results for 4:45 PM HISTOTECHNOLOGIST this procedure are in the results section. LUPUS ANTICOAGULANT PANEL Routine 08/23/2018 Results for 4:45 PM HISTOTECHNOLOGIST this procedure are in the results section. CARCINOEMBRYONIC ANTIGEN (CEA) Routine 08/23/2018 Results for 3:46 PM HISTOTECHNOLOGIST this procedure are in the results section. PROSTATE SPECIFIC ANTIGEN Routine 08/23/2018 Results for 3:46 PM HISTOTECHNOLOGIST this procedure are in the results section. HIV AG/AB COMBINATION Routine 08/23/2018 Results for 3:46 PM HISTOTECHNOLOGIST this procedure are in the results section. RHEUMATOID FACTOR Routine 08/23/2018 Results for 3:46 PM HISTOTECHNOLOGIST this procedure are in the results section. TROPONIN Routine 08/23/2018 Results for 3:46 PM HISTOTECHNOLOGIST this procedure are in the results section. CANCER ANTIGEN 19-9 Routine 08/23/2018 Results for 3:46 PM HISTOTECHNOLOGIST this procedure are in the results section. ALPHA FETOPROTEIN Routine 08/23/2018 Results for 3:46 PM HISTOTECHNOLOGIST this procedure are in the results section. RANDELL Routine 08/23/2018 Results for 3:46 PM HISTOTECHNOLOGIST this procedure are in the results section. DNA AB SCREEN Routine 08/23/2018 Results for 3:46 PM HISTOTECHNOLOGIST this procedure are in the results section. C-REACTIVE PROTEIN Routine 08/23/2018 Results for 3:46 PM HISTOTECHNOLOGIST this procedure are in the results section. URINALYSIS SCREEN AND Routine 08/23/2018 Results for MICROSCOPY, WITH REFLEX TO 7:45 AM HISTOTECHNOLOGIST this procedure CULTURE are in the results section. URINE CULTURE Routine 08/23/2018 Results for 7:45 AM HISTOTECHNOLOGIST this procedure are in the results section. THYROID STIMULATING HORMONE Routine 08/23/2018 Results for 5:50 AM HISTOTECHNOLOGIST this procedure are in the results section. ESTIMATED GFR Routine 08/23/2018 Results for 5:50 AM HISTOTECHNOLOGIST this procedure are in the results section. LIPASE LEVEL Routine 08/23/2018 Results for 5:50 AM HISTOTECHNOLOGIST this procedure are in the results section. B NATRIURETIC PEPTIDE Routine 08/23/2018 Results for 5:50 AM HISTOTECHNOLOGIST this procedure are in the results section. AMYLASE LEVEL Routine 08/23/2018 Results for 5:50 AM HISTOTECHNOLOGIST this procedure are in the results section. COMPREHENSIVE METABOLIC PANEL Routine 08/23/2018 Results for 5:50 AM HISTOTECHNOLOGIST this procedure are in the results section. PARTIAL THROMBOPLASTIN TIME Routine 08/23/2018 Results for (PTT) 5:50 AM HISTOTECHNOLOGIST this procedure are in the results section. PROTHROMBIN TIME WITH INR Routine 08/23/2018 Results for 5:50 AM HISTOTECHNOLOGIST this procedure are in the results section. HC COMPLETE BLD COUNT W/AUTO Routine 08/23/2018 Results for DIFF 5:50 AM HISTOTECHNOLOGIST this procedure are in the results section. HEPATITIS ACUTE PANEL Routine 08/23/2018 Results for 3:28 AM HISTOTECHNOLOGIST this procedure are in the results section. TROPONIN Timed 08/23/2018 Results for 3:23 AM HISTOTECHNOLOGIST this procedure are in the results section. ESTIMATED GFR Routine 08/05/2018 Results for 5:20 AM HISTOTECHNOLOGIST this procedure are in the results section. HC COMPLETE BLD COUNT W/AUTO Routine 08/05/2018 Results for DIFF 5:20 AM HISTOTECHNOLOGIST this procedure are in the results section. COMPREHENSIVE METABOLIC PANEL Routine 08/05/2018 Results for 5:20 AM HISTOTECHNOLOGIST this procedure are in the results section. IR TRANSJUGULAR LIVER BIOPSY Routine 08/04/2018 Results for 6:04 PM HISTOTECHNOLOGIST this procedure are in the results section. SURGICAL PATHOLOGY REQUEST Routine 08/04/2018 Results for 9:18 AM HISTOTECHNOLOGIST this procedure are in the results section. ESTIMATED GFR Routine 08/04/2018 Results for 3:45 AM HISTOTECHNOLOGIST this procedure are in the results section. HC COMPLETE BLD COUNT W/AUTO Routine 08/04/2018 Results for DIFF 3:45 AM HISTOTECHNOLOGIST this procedure are in the results section. COMPREHENSIVE METABOLIC PANEL Routine 08/04/2018 Results for 3:45 AM HISTOTECHNOLOGIST this procedure are in the results section. ESTIMATED GFR Routine 08/03/2018 Results for 5:00 AM HISTOTECHNOLOGIST this procedure are in the results section. HC COMPLETE BLD COUNT W/AUTO Routine 08/03/2018 Results for DIFF 5:00 AM HISTOTECHNOLOGIST this procedure are in the results section. COMPREHENSIVE METABOLIC PANEL Routine 08/03/2018 Results for 5:00 AM HISTOTECHNOLOGIST this procedure are in the results section. NM MYOCARDIAL PERFUSION STRESS Routine 08/02/2018 Results for REST 1 DAY 3:17 PM HISTOTECHNOLOGIST this procedure are in the results section. CV STRESS TEST NUCLEAR CARDIO Routine 08/02/2018 Results for 3:17 PM HISTOTECHNOLOGIST this procedure are in the results section. ECG 12-LEAD Routine 08/02/2018 8:15 AM HISTOTECHNOLOGIST ECHOCARDIOGRAM 2D COMPLETE W Routine 08/02/2018 Results for MMODE SPECTRAL COLOR DOPPLER 8:00 AM HISTOTECHNOLOGIST this procedure ([id number]) are in the results section. ESTIMATED GFR Routine 08/02/2018 Results for 4:50 AM HISTOTECHNOLOGIST this procedure are in the results section. HEMOGLOBIN A1C Routine 08/02/2018 Results for 4:50 AM HISTOTECHNOLOGIST this procedure are in the results section. LIPID PANEL Routine 08/02/2018 Results for 4:50 AM HISTOTECHNOLOGIST this procedure are in the results section. THYROID STIMULATING HORMONE Routine 08/02/2018 Results for 4:50 AM HISTOTECHNOLOGIST this procedure are in the results section. HC COMPLETE BLD COUNT W/AUTO Routine 08/02/2018 Results for DIFF 4:50 AM HISTOTECHNOLOGIST this procedure are in the results section. COMPREHENSIVE METABOLIC PANEL Routine 08/02/2018 Results for 4:50 AM HISTOTECHNOLOGIST this procedure are in the results section. LACTIC ACID LEVEL, SEPSIS - NOW Timed 08/02/2018 Results for AND REPEAT 2X EVERY 3 HOURS 4:50 AM HISTOTECHNOLOGIST this procedure are in the results section. TROPONIN Timed 08/01/2018 Results for 9:26 PM HISTOTECHNOLOGIST this procedure are in the results section. URINE DRUGS OF ABUSE SCREEN Routine 08/01/2018 Results for 6:00 PM HISTOTECHNOLOGIST this procedure are in the results section. T4, FREE Routine 08/01/2018 Results for 6:00 PM HISTOTECHNOLOGIST this procedure are in the results section. CT CHEST WO CONTRAST STAT 08/01/2018 Results for 5:24 PM HISTOTECHNOLOGIST this procedure are in the results section. NM LUNG VENTILATION PERFUSION STAT 08/01/2018 Results for 4:39 PM HISTOTECHNOLOGIST this procedure are in the results section. ECG 12-LEAD STAT 08/01/2018 Results for 2:17 PM HISTOTECHNOLOGIST this procedure are in the results section. ECG ED PRELIMINARY Routine 08/01/2018 Results for INTERPRETATION 11:54 AM HISTOTECHNOLOGIST this procedure are in the results section. ECG ED PRELIMINARY Routine 08/01/2018 Results for INTERPRETATION 11:54 AM HISTOTECHNOLOGIST this procedure are in the results section. MAGNESIUM LEVEL STAT 08/01/2018 Results for 11:45 AM HISTOTECHNOLOGIST this procedure are in the results section. PHOSPHORUS LEVEL STAT 08/01/2018 Results for 11:45 AM HISTOTECHNOLOGIST this procedure are in the results section. LACTIC ACID LEVEL, SEPSIS - NOW STAT 08/01/2018 Results for AND REPEAT 2X EVERY 3 HOURS 11:45 AM HISTOTECHNOLOGIST this procedure are in the results section. LIPASE LEVEL STAT 08/01/2018 Results for 11:45 AM HISTOTECHNOLOGIST this procedure are in the results section. AMYLASE LEVEL STAT 08/01/2018 Results for 11:45 AM HISTOTECHNOLOGIST this procedure are in the results section. PARTIAL THROMBOPLASTIN TIME STAT 08/01/2018 Results for (PTT) 11:45 AM HISTOTECHNOLOGIST this procedure are in the results section. PROTHROMBIN TIME WITH INR STAT 08/01/2018 Results for 11:45 AM HISTOTECHNOLOGIST this procedure are in the results section. TYPE AND SCREEN Routine 08/01/2018 Results for 11:45 AM HISTOTECHNOLOGIST this procedure are in the results section. ESTIMATED GFR STAT 08/01/2018 Results for 11:45 AM HISTOTECHNOLOGIST this procedure are in the results section. B NATRIURETIC PEPTIDE STAT 08/01/2018 Results for 11:45 AM HISTOTECHNOLOGIST this procedure are in the results section. TROPONIN STAT 08/01/2018 Results for 11:45 AM HISTOTECHNOLOGIST this procedure are in the results section. COMPREHENSIVE METABOLIC PANEL STAT 08/01/2018 Results for 11:45 AM HISTOTECHNOLOGIST this procedure are in the results section. HC COMPLETE BLD COUNT W/AUTO STAT 08/01/2018 Results for DIFF 11:45 AM HISTOTECHNOLOGIST this procedure are in the results section. XR CHEST 1 VW PORTABLE STAT 08/01/2018 Results for 11:29 AM HISTOTECHNOLOGIST this procedure are in the results section. ECG 12-LEAD STAT 08/01/2018 Results for 10:45 AM HISTOTECHNOLOGIST this procedure are in the results section. SURGICAL PATHOLOGY REQUEST Routine 05/21/2018 Results for 11:10 AM CDT this procedure are in the results section. ESOPHAGOGASTRODUODENOSCOPY (EGD) 05/21/2018 Generalized 9:00 AM CDT abdominal pain Weight loss COLONOSCOPY 05/21/2018 Generalized 9:00 AM CDT abdominal pain Weight loss ZZESTIMATED GFR Routine 05/21/2018 Results for 5:31 AM CDT this procedure are in the results section. MAGNESIUM LEVEL Routine 05/21/2018 Results for 5:31 AM CDT this procedure are in the results section. PHOSPHORUS LEVEL Routine 05/21/2018 Results for 5:31 AM CDT this procedure are in the results section. BASIC METABOLIC PANEL Routine 05/21/2018 Results for 5:31 AM CDT this procedure are in the results section. ZZESTIMATED GFR Routine 05/21/2018 Results for 4:19 AM CDT this procedure are in the results section. MAGNESIUM LEVEL Routine 05/21/2018 Results for 4:19 AM CDT this procedure are in the results section. PHOSPHORUS LEVEL Routine 05/21/2018 Results for 4:19 AM CDT this procedure are in the results section. HC COMPLETE BLD COUNT W/AUTO Routine 05/21/2018 Results for DIFF 4:19 AM CDT this procedure are in the results section. BASIC METABOLIC PANEL Routine 05/21/2018 Results for 4:19 AM CDT this procedure are in the results section. ZZESTIMATED GFR Routine 05/20/2018 Results for 4:30 AM CDT this procedure are in the results section. THYROID STIMULATING HORMONE Routine 05/20/2018 Results for 4:30 AM CDT this procedure are in the results section. LIPASE LEVEL Routine 05/20/2018 Results for 4:30 AM CDT this procedure are in the results section. HC COMPLETE BLD COUNT W/AUTO Routine 05/20/2018 Results for DIFF 4:30 AM CDT this procedure are in the results section. COMPREHENSIVE METABOLIC PANEL Routine 05/20/2018 Results for 4:30 AM CDT this procedure are in the results section. TROPONIN Timed 05/19/2018 Results for 8:30 PM CDT this procedure are in the results section. CT ABDOMEN PELVIS W CONTRAST STAT 05/19/2018 Results for 6:15 PM CDT this procedure are in the results section. US HEPATIC STAT 05/19/2018 Results for 5:39 PM CDT this procedure are in the results section. ECG 12-LEAD STAT 05/19/2018 Results for 4:32 PM CDT this procedure are in the results section. URINE CULTURE STAT 05/19/2018 Results for 4:30 PM CDT this procedure are in the results section. URINALYSIS SCREEN AND STAT 05/19/2018 Results for MICROSCOPY, WITH REFLEX TO 4:27 PM CDT this procedure CULTURE are in the results section. URINE DRUGS OF ABUSE SCREEN STAT 05/19/2018 Results for 4:27 PM CDT this procedure are in the results section. ZZESTIMATED GFR STAT 05/19/2018 Results for 4:21 PM CDT this procedure are in the results section. TROPONIN STAT 05/19/2018 Results for 4:21 PM CDT this procedure are in the results section. LIPASE LEVEL STAT 05/19/2018 Results for 4:21 PM CDT this procedure are in the results section. COMPREHENSIVE METABOLIC PANEL STAT 05/19/2018 Results for 4:21 PM CDT this procedure are in the results section. HC COMPLETE BLD COUNT W/AUTO STAT 05/19/2018 Results for DIFF 4:21 PM CDT this procedure are in the results section. after 01/09/2018 Results FL UGI w Air HD BA and Small Bowel (08/26/2018 4:55 PM HISTOTECHNOLOGIST) Narrative Performed At EXAMINATION:FL UGI W AIR HD BA AND SMALL BOWEL [facility] CLINICAL HISTORY:Abd painunspecified COMPARISON:Abdominal CT 06/15/2018 TECHNIQUE: Upper GI series and small bowel follow through was performed with effervescent granules and barium. FLUOROSCOPIC TIME:1.9 minutes NUMBER OF IMAGES: 32 fluoroscopic images FINDINGS: 1.Esophagus:Esophagus was distensible. Difficult to obtain double contrast distended images of the esophageal mucosa, as the patient was unable to retain gas from the effervescent granules. Nevertheless, the mucosa and motility appear to be within normal limits. There is no evidence of stricture. 2.Gastroesophageal junction:No evidence of hiatal hernia. No gastroesophageal reflux was demonstrated spontaneously or with Valsalva maneuver, reverse Trendelenburg positioning, and combined Valsalva and reverse Trendelenburg. 3.Stomach:Normally distensible and demonstrates normal contours and mucosal pattern. Please note some of the images demonstrate artifact from the effervescent granules 4.Duodenum:Bulb and sweep are normal. The duodenal-jejunal junction is in the normal expected position. 5.Small bowel follow-through:Small bowel loops are normal in caliber and distribution. Spot compression views of the terminal ileum are normal. Transit time was normal, with contrast material reaching the hepatic flexure at the 3 hour follow-up radiograph. No small bowel obstruction. 6. Other: Cholecystectomy clips. Mild spondylosis. IMPRESSION: Unremarkable upper gastrointestinal fluoroscopic examination and small bowel follow-through. [id number] Procedure Note [facility], Radiology Results Incoming - 08/26/2018 5:56 PM HISTOTECHNOLOGIST EXAMINATION: FL UGI W AIR HD BA AND SMALL BOWEL CLINICAL HISTORY: Abd pain unspecified COMPARISON: Abdominal CT 06/15/2018 TECHNIQUE: Upper GI series and small bowel follow through was performed with effervescent granules and barium. FLUOROSCOPIC TIME: 1.9 minutes NUMBER OF IMAGES: 32 fluoroscopic images FINDINGS: 1. Esophagus: Esophagus was distensible. Difficult to obtain double contrast distended images of the esophageal mucosa, as the patient was unable to retain gas from the effervescent granules. Nevertheless, the mucosa and motility appear to be within normal limits. There is no evidence of stricture. 2. Gastroesophageal junction: No evidence of hiatal hernia. No gastroesophageal reflux was demonstrated spontaneously or with Valsalva maneuver , reverse Trendelenburg positioning, and combined Valsalva and reverse Trendelenburg. 3. Stomach: Normally distensible and demonstrates normal contours and mucosal pattern. Please note some of the images demonstrate artifact from the effervescent granules 4. Duodenum: Bulb and sweep are normal. The duodenal-jejunal junction is in the normal expected position. 5. Small bowel follow-through: Small bowel loops are normal in caliber and distribution. Spot compression views of the terminal ileum are normal. Transit time was normal, with contrast material reaching the hepatic flexure at the 3 hour follow-up radiograph. No small bowel obstruction. 6. Other: Cholecystectomy clips. Mild spondylosis. IMPRESSION: Unremarkable upper gastrointestinal fluoroscopic examination and small bowel follow-through. [id number] Performing Organization Address City/State/Zipcode Phone Number [facility] [address] [place] [address] Prothrombin time with INR (08/26/2018 5:30 AM HISTOTECHNOLOGIST)Only the most recent of3 resultswithin the time period is included. Prothrombin time 15.5 (H) 11.5 - 14.5 sec [facility] INR 1.3 [facility] Comment: HOSPITAL The International Normalized Ratio (INR) is a therapeutic monitoring tool for patients who are stable on oral anticoagulant therapy. An INR of 2.0-3.0 is suggested for deep vein thrombosis/pulmonary embolism. Specimen Blood Performing Organization Address City/State/Zipcode Phone Number [facility] DEPARTMENT OF PATHOLOGY AND [address] [place] [address] GENOMIC MEDICINE [facility] [address] [place] [address] CBC with platelet and differential (08/26/2018 5:00 AM HISTOTECHNOLOGIST)Only the most recent of11 resultswithin the time period is included. WBC 4.55 4.50 - 11.00 k/uL [facility] RBC 3.90 (L) 4.40 - 6.00 m/uL [facility] HGB 12.6 (L) 14.0 - 18.0 g/dL [facility] HCT 36.0 (L) 41.0 - 51.0 % [facility] MCV 92.3 82.0 - 100.0 fL [facility] MCH 32.3 27.0 - 34.0 pg [facility] MCHC 35.0 31.0 - 37.0 g/dL [facility] RDW - SD 43.4 37.0 - 55.0 fL [facility] MPV 11.2 8.8 - 13.2 fL [facility] Platelet count 204 150 - 400 k/uL [facility] Nucleated RBC 0.00 /100 WBC [facility] Neutrophils 47.4 39.0 - 69.0 % [facility] Lymphocytes 43.1 25.0 - 45.0 % [facility] Monocytes 6.2 0.0 - 10.0 % [facility] Eosinophils 2.4 0.0 - 5.0 % [facility] Basophils 0.7 0.0 - 1.0 % [facility] Immature granulocytes 0.2Comment: "Immature 0.0 - 1.0 % [facility] granulocytes" [facility] (promyelocytes, myelocytes, metamyelocytes) Specimen Blood Performing Organization Address City/[facility]/Zipcode Phone Number [facility] DEPARTMENT OF PATHOLOGY AND [address] [address] Estimated GFR (08/26/2018 4:00 AM HISTOTECHNOLOGIST)Only the most recent of8 resultswithin the time period is included. Estimated GFR >=90 mL/min/1.73 m2 [facility] Comment: HOSPITAL CatergoryUnitsInterpretation G1 >=90 Normal or high G2 60-89Mildly decreased [id number] to moderately decreased [id number] to severely decreased G4 15-29Severely decreased G5 <15Kidney failure The eGFR was calculated using the Chronic Kidney Disease Epidemiology Collaboration (CKD-EPI) equation. Interpretation is based on recommendations of the National Kidney Foundation-Kidney Disease Outcomes Quality Initiative (NKF-KDOQI) published in 2014. Specimen Plasma specimen Performing Organization Address City/[facility] Phone Number [facility] DEPARTMENT OF PATHOLOGY AND [address] [place] [phone] [place] [phone] Comprehensive metabolic panel (08/26/2018 4:00 AM HISTOTECHNOLOGIST)Only the most recent of10 resultswithin the time period is included. Sodium 136 135 - 148 mEq/L [facility] Potassium 3.9 3.5 - 5.0 mEq/L [facility] Chloride 102 98 - 112 mEq/L [facility] CO2 24 24 - 31 mEq/L [facility] Anion gap 10@ANIO 7 - 15 mEq/L [facility] BUN 4 (L) 6 - 20 mg/dL [facility] Creatinine 0.65 (L) 0.70 - 1.20 mg/dL [facility] Glucose 78 65 - 99 mg/dL [facility] Calcium 8.4 8.3 - 10.2 mg/dL [facility] Protein 5.6 (L) 6.3 - 8.3 g/dL [facility] Comment: HOSPITAL 4.6-7.0 g/dL 1 week 4.4-7.6 g/dL 7 months-1year5.1-7.3 g/dL 1-2 years5.6-7.5 g/dL >3 years6.0-8.0 g/dL 18-150 6.3-8.3 g/dL Albumin 3.0 (L) 3.5 - 5.0 g/dL [facility] A/G ratio 1.2 0.7 - 3.8 [facility] Alkaline phosphatase 49 40 - 129 U/L [facility] AST 37 10 - 50 U/L [facility] ALT 84 (H) 5 - 50 U/L [facility] Total bilirubin 0.5 0.0 - 1.2 mg/dL [facility] Specimen Plasma specimen Performing Organization Address City/State/Zipcode Phone Number [facility] DEPARTMENT OF PATHOLOGY AND [address] [place] [address] [facility] [place] [id number] [place] [address] XR Lumbar Spine 2 Or 3 Vw (08/24/2018 2:51 PM HISTOTECHNOLOGIST) Narrative Performed At PROCEDURE:XR LUMBAR SPINE 2 OR 3 VW [facility] CLINICAL HISTORY:Back [id number] conservative txpersistent sx COMPARISON:None. TECHNIQUE: Views of the lumbar spine were performed in 2 views of the lumbosacral junction. FINDINGS: The vertebral body height are maintained.There is no fracture or malalignment. Anterior spondylosis. Mild loss of disc height at L5-S1. Facet arthropathy at L5-S1. Minimal retrolisthesis of L5 over S1 measuring less than 3 mm. The lateral and posterior elements are intact. There is no soft tissue abnormality. The sacrum and sacroiliac joints are unremarkable. Surgical clips projecting over right upper quadrant. Moderate colonic stool burden suggestive for constipation. IMPRESSION: 1. Mild degenerative disc disease and facet arthropathy seen at L5-S1. 2. Retrolisthesis of L5 over S1 measuring less than 3 mm. [id number] Procedure Note Interface, Radiology Results Incoming - 08/24/2018 3:06 PM HISTOTECHNOLOGIST PROCEDURE: XR LUMBAR SPINE 2 OR 3 VW CLINICAL HISTORY: Back pain 6wks conservative tx persistent sx COMPARISON: None. TECHNIQUE: Views of the lumbar spine were performed in 2 views of the lumbosacral junction. FINDINGS: The vertebral body height are maintained. There is no fracture or malalignment. Anterior spondylosis. Mild loss of disc height at L5-S1. Facet arthropathy at L5-S1. Minimal retrolisthesis of L5 over S1 measuring less than 3 mm. The lateral and posterior elements are intact. There is no soft tissue abnormality. The sacrum and sacroiliac joints are unremarkable. Surgical clips projecting over right upper quadrant. Moderate colonic stool burden suggestive for constipation. IMPRESSION: 1. Mild degenerative disc disease and facet arthropathy seen at L5-S1. 2. Retrolisthesis of L5 over S1 measuring less than 3 mm. [id number] Performing Organization Address City/[facility]/Zipcode Phone Number [address] [address] Ammonia level (08/24/2018 6:06 AM HISTOTECHNOLOGIST) Ammonia 30 16 - 60 umol/L [facility] Specimen Blood Performing Organization Address [facility] Phone Number [facility] DEPARTMENT OF PATHOLOGY AND [address] [place] [phone] [place] [address] Phosphorus level (08/24/2018 4:00 AM HISTOTECHNOLOGIST)Only the most recent of4 resultswithin the time period is included. Phosphorus 3.5 2.4 - 4.5 mg/dL [facility] Specimen Plasma specimen Performing Organization Address [facility] Phone Number [facility] DEPARTMENT OF PATHOLOGY AND [address] [place] [phone] [place] [address] Magnesium level (08/24/2018 4:00 AM HISTOTECHNOLOGIST)Only the most recent of4 resultswithin the time period is included. Magnesium 1.7 1.6 - 2.6 mg/dL [facility] Specimen Plasma specimen Performing Organization Address [facility] Phone Number [facility] DEPARTMENT OF PATHOLOGY AND [address] [place] [address] Ionized calcium (08/24/2018 4:00 AM HISTOTECHNOLOGIST) pH 7.47 [facility] Ionized calcium 1.09 (L) 1.11 - 1.32 mmol/L [facility] Specimen Plasma specimen Performing Organization Address City/[facility]/Zipcode Phone Number [facility] DEPARTMENT OF PATHOLOGY AND [address] [place] [phone] [address] Lupus anticoagulant panel (08/23/2018 4:45 PM HISTOTECHNOLOGIST) Prothrombin time 14.8 (H) 11.5 - 14.5 sec [facility] INR 1.2 [facility] Comment: HOSPITAL The International Normalized Ratio (INR) is a therapeutic monitoring tool for patients who are stable on oral anticoagulant therapy. An INR of 2.0-3.0 is suggested for deep vein thrombosis/pulmonary embolism. PTT 33.7 23.0 - 36.0 sec [facility] Comment: [facility] PTT therapeutic range for unfractionated heparin is 61.0-112.0 seconds which corresponds to Anti-Xa 0.3-0.7 U/ml. PTT lupus anticoagulant 34.6 27.0 - 38.0 sec [facility] Comment: [facility] Lupus anticoagulant (LA) panel consists of PT, PTT, PTT-LA, and DRVVT. If the PTT-LA is above the normal range, the hexagonal phospholipid will be performed. If the DRVVT is above the normal range, the DRVVC confirmatory test will be performed. A normal result for both the DRVVT and the PTT-LA means the patient is negative for lupus anticoagulant. The patient is considered positive for lupus anticoagulant if either the Ratio SCR/CONF or the hexagonal phospholipid is high (positive) on two occassions at least six weeks apart. Clinical confirmation is also required for diagnosis. DRVVT 25.6 (L) 29.0 - 46.0 sec [facility] Specimen Blood Performing Organization Address City/[facility]/Zipcode Phone Number [facility] DEPARTMENT OF PATHOLOGY AND [address] [place] [phone] [address] Sedimentation rate (08/23/2018 4:45 PM HISTOTECHNOLOGIST) Sedimentation rate 5 0 - 10 mm/hr [facility] Specimen Blood Performing Organization Address City/[facility]/Zipcode Phone Number [facility] DEPARTMENT OF PATHOLOGY AND [address] [place] [phone] [address] HIV Ag/Ab combination (08/23/2018 3:46 PM HISTOTECHNOLOGIST) HIV Ag/Ab combination Non-reactive Non-reactive [facility] Performing Organization Address City/[facility] Phone Number [facility] DEPARTMENT OF PATHOLOGY AND [address] [place] [address] DNA Ab screen (08/23/2018 3:46 PM HISTOTECHNOLOGIST) DNA Ab screen Not Detected Not-Detected [facility] Specimen Blood Performing Organization Address [facility] Phone Number [facility] DEPARTMENT OF PATHOLOGY AND [address] [place] [address] Cancer antigen 19-9 (08/23/2018 3:46 PM HISTOTECHNOLOGIST) CA 19-9 26 0 - 35 U/mL [facility] Comment: The [employer]dy[employer] [place] 8000 CA19-9 immunoassay was used. Results obtained with different assay methods or kits should not be used interchangeably and may be different. Specimen Plasma specimen Performing Organization Address [facility] Phone Number [facility] DEPARTMENT OF PATHOLOGY AND [address] [place] [address] Troponin (08/23/2018 3:46 PM HISTOTECHNOLOGIST)Only the most recent of6 resultswithin the time period is included. Troponin <0.30 0.00 - 0.30 ng/mL [facility] Comment: 0.30 - 1.49 ng/mlMay indicate increased risk of acute coronary syndrome. >=1.5 ng/mlConsistent with acute myocardial infarction. The diagnostic value of a single normal or non-diagnostic result is questionable.Serial samples at 2-6 hour intervals are required to rule out acute myocardial injury. Specimen Plasma specimen Performing Organization Address [facility] Phone Number [facility] DEPARTMENT OF PATHOLOGY AND [address] [place] [address] Alpha fetoprotein (08/23/2018 3:46 PM HISTOTECHNOLOGIST) Alpha fetoprotein 1.7 0.0 - 8.3 ng/mL [facility] Comment: HOSPITAL The [place] 8000 AFP immunoassay was used. Results obtained with different assay methods or kits should not be used interchangeably and may be different. Specimen Serum Performing Organization Address [facility] Phone Number [facility] DEPARTMENT OF PATHOLOGY AND [address] [place] [address] Rheumatoid factor (08/23/2018 3:46 PM HISTOTECHNOLOGIST) Rheumatoid factor 13 0 - 13 IU/mL [facility] Specimen Plasma specimen Performing Organization Address City/[facility] Phone Number [facility] DEPARTMENT OF PATHOLOGY AND [address] [place] [address] C-reactive protein (08/23/2018 3:46 PM HISTOTECHNOLOGIST) CRP <0.30 0.00 - 0.50 mg/dL [facility] Specimen Plasma specimen Performing Organization Address [facility] Phone Number [facility] DEPARTMENT OF PATHOLOGY AND [address] [place] [address] RANDELL (08/23/2018 3:46 PM HISTOTECHNOLOGIST) RANDELL screen Negative Negative [facility] Specimen Blood Performing Organization Address [facility] Phone Number [facility] DEPARTMENT OF PATHOLOGY AND [address] [place] [address] Prostate specific antigen (08/23/2018 3:46 PM HISTOTECHNOLOGIST) PSA 1.0 0.0 - 4.0 ng/mL [facility] Comment: The [place] 8000 PSA immunoassay was used. Results obtained with different assay methods or kits should not be used interchangeably and may be different. Specimen Plasma specimen Performing Organization Address [facility] Phone Number [facility] DEPARTMENT OF PATHOLOGY AND [address] [place] [address] Carcinoembryonic antigen (CEA) (08/23/2018 3:46 PM HISTOTECHNOLOGIST) CEA 3.2 0.0 - 3.8 ng/mL [facility] Comment: Reference range for heavy smokers:0.0 - 5.5 ng/mL The [employer] [place] 8000 CEA immunoassay was used. Results obtained with different assay methods or kits should not be used interchangeably and may be different. Specimen Serum Performing Organization Address City/[facility]/Zipcode Phone Number [facility] DEPARTMENT OF PATHOLOGY AND [address] [place] [address] Urinalysis screen and microscopy, with reflex to culture (08/23/2018 7:45 AM HISTOTECHNOLOGIST)Only the most recent of2 resultswithin the time period is included. Specimen site Clean catch [facility] Color, UA Straw [facility] Appearance, UA Clear [facility] Specific gravity, UA 1.011 1.001 - 1.035 [facility] pH, UA 6.0 5.0 - 8.5 [facility] Protein, UA Negative Negative [facility] Glucose, UA Negative Negative [facility] Ketones, UA Negative Negative [facility] Bilirubin, UA Negative Negative [facility] Blood, UA Negative Negative [facility] Nitrite, UA Negative Negative [facility] Urobilinogen, UA FootnoteComment: Unable <2.0 [facility] Leukocyte esterase, UA Negative Negative [facility] WBC, UA <1 0 - 1 /HPF [facility] RBC, UA None seen 0 - 5 /HPF [facility] Bacteria, UA None seen None seen [facility] Yeast, UA None seen [facility] Yeast with pseudohyphae, None seen [facility] Specimen Urine Performing Organization Address [facility] Phone Number [facility] DEPARTMENT OF PATHOLOGY AND [address] [place] [address] Urine culture (08/23/2018 7:45 AM HISTOTECHNOLOGIST)Only the most recent of2 resultswithin the time period is included. Urine culture SEE COMMENTComment: Bacteriuria [facility] screen negative. Performing Organization Address City/[facility] Phone Number [facility] DEPARTMENT OF PATHOLOGY AND [address] [place] [address] Partial thromboplastin time, activated (08/23/2018 5:50 AM HISTOTECHNOLOGIST)Only the most recent of2 resultswithin the time period is included. PTT 33.1 23.0 - 36.0 sec [facility] Comment: PTT therapeutic range for unfractionated heparin is 61.0-112.0 seconds which corresponds to Anti-Xa 0.3-0.7 U/ml. Specimen Blood Performing Organization Address City/[facility] Phone Number [facility] DEPARTMENT OF PATHOLOGY AND [address] [place] [address] Thyroid stimulating hormone (08/23/2018 5:50 AM HISTOTECHNOLOGIST)Only the most recent of3 resultswithin the time period is included. TSH 4.21 (H) 0.27 - 4.20 uIU/mL [facility] Specimen Plasma specimen Performing Organization Address [facility] Phone Number [facility] DEPARTMENT OF PATHOLOGY AND [address] [place] [address] B natriuretic peptide (08/23/2018 5:50 AM HISTOTECHNOLOGIST)Only the most recent of2 resultswithin the time period is included. BNP 81 0 - 100 pg/mL [facility] Specimen Blood Performing Organization Address [facility] Phone Number [facility] DEPARTMENT OF PATHOLOGY AND [address] [place] [address] Lipase level (08/23/2018 5:50 AM HISTOTECHNOLOGIST)Only the most recent of4 resultswithin the time period is included. Lipase 23 13 - 60 U/L [facility] Specimen Plasma specimen Performing Organization Address City/[facility] Phone Number [facility] DEPARTMENT OF PATHOLOGY AND [address] [place] [address] Amylase level (08/23/2018 5:50 AM HISTOTECHNOLOGIST)Only the most recent of2 resultswithin the time period is included. Amylase 40 28 - 100 U/L [facility] Specimen Plasma specimen Performing Organization Address City/[facility] Phone Number [facility] DEPARTMENT OF PATHOLOGY AND [address] [place] [address] [place] [address] Hepatitis acute panel (08/23/2018 3:28 AM HISTOTECHNOLOGIST) Hepatitis A IgM Non-reactive Non-reactive [facility] Hepatitis B core IgM Non-reactive Non-reactive [facility] Hepatitis B surface Ag Non-reactive Non-reactive [facility] Hepatitis C Ab Non-reactive Non-reactive [facility] Specimen Serum Performing Organization Address City/State/Zipcode Phone Number [facility] DEPARTMENT OF PATHOLOGY AND [address] [place] [phone] [facility] [address] [place] [phone] IR Transjugular Liver Biopsy (08/04/2018 6:04 PM HISTOTECHNOLOGIST) Narrative Performed At Performing Radiologist TERI Prasad MD Assistants None Anesthesia Type Intraservice moderate sedation was administered by the procedure nurse and monitored by the procedure physician for 12 minutes. Lidocaine 1% was used for local anesthetic. Pre Procedure Diagnosis elevated liver enzymes. Post Procedure Diagnosis Same as above Procedures 1.Transjugular liver biopsy. 2.Right hepatic vein venography 3.Intravenous pressure measurements. 4.Ultrasound-guided needle placement. Technique After explaining the procedure as well as its benefits and risks including but not limited to bleeding, infection, and damage to adjacent structures, all the patient's questions were answered to apparent satisfaction and written informed consent was then obtained. The patient was taken to the angiography suite and placed supine on the table. The right neck was prepped and draped in usual sterile fashion. Lidocaine was administered locally. Using real-time ultrasound guidance, a 21-gauge micropuncture needle was used to access the right internal jugular vein. A 0.018 inch guidewire was advanced centrally under fluoroscopy. The needle was removed and a micropuncture sheath system was placed. Under ultrasound guidance, documentation of vessel patency, needle access with permanent recording, and reporting are performed followed by placement of a sheath in the right internal jugular vein. A 0.035 inch guidewire was then advanced through the micropuncture sheath and into the inferior vena cava. A long 9-Macanese vascular sheath was exchanged over the guidewire and advanced into the IVC. Using catheter and guidewire technique under direct fluoroscopic guidance the right hepatic vein was then accessed with a directional catheter. A right hepatic venogram was performed with the injection of contrast which revealed normal course, caliber, and contour of the right hepatic vein with appropriate hepatofugal flow. The transjugular liver biopsy system was advanced through the 9-Macanese vascular sheath, and multiple 18-gauge core liver biopsy specimens were obtained.These were then placed in formalin and submitted to pathology. The directional catheter was then reintroduced and pressure measurements were then obtained in a pullback fashion. The 9-Macanese vascular sheath was then removed from the right internal jugular vein, and hemostasis was achieved with direct manual compression. The patient tolerated the procedure well. Pressure measurements (mmHg) Wedge hepatic=17 Free hepatic vein=4 Right atrium=3 Total Fluoroscopic Exposure 32 mGy Complications None Specimens Removed As described in the above report. Estimated Blood Loss Less than 2 mL Blood/Blood Products Administered None Grafts/Implants None Impression: Successful, uncomplicated transjugular liver biopsy with pressure measurements as described above. [facility]-[id number] Procedure Note [facility], Radiology Results Incoming - 08/04/2018 6:09 PM HISTOTECHNOLOGIST Performing Radiologist John Prasad MD Assistants None Anesthesia Type Intraservice moderate sedation was administered by the procedure nurse and monitored by the procedure physician for 12 minutes. Lidocaine 1% was used for local anesthetic. Pre Procedure Diagnosis elevated liver enzymes. Post Procedure Diagnosis Same as above Procedures 1. Transjugular liver biopsy. 2. Right hepatic vein venography 3. Intravenous pressure measurements. 4. Ultrasound-guided needle placement. Technique After explaining the procedure as well as its benefits and risks including but not limited to bleeding, infection, and damage to adjacent structures, all the patient's questions were answered to apparent satisfaction and written informed consent was then obtained. The patient was taken to the angiography suite and placed supine on the table. The right neck was prepped and draped in usual sterile fashion. Lidocaine was administered locally. Using real-time ultrasound guidance, a 21-gauge micropuncture needle was used to access the right internal jugular vein. A 0.018 inch guidewire was advanced centrally under fluoroscopy. The needle was removed and a micropuncture sheath system was placed. Under ultrasound guidance, documentation of vessel patency, needle access with permanent recording, and reporting are performed followed by placement of a sheath in the right internal jugular vein. A 0.035 inch guidewire was then advanced through the micropuncture sheath and into the inferior vena cava. A long 9-Macanese vascular sheath was exchanged over the guidewire and advanced into the IVC. Using catheter and guidewire technique under direct fluoroscopic guidance the right hepatic vein was then accessed with a directional catheter. A right hepatic venogram was performed with the injection of contrast which revealed normal course, caliber, and contour of the right hepatic vein with appropriate hepatofugal flow. The transjugular liver biopsy system was advanced through the 9-Macanese vascular sheath, and multiple 18-gauge core liver biopsy specimens were obtained. These were then placed in formalin and submitted to pathology. The directional catheter was then reintroduced and pressure measurements were then obtained in a pullback fashion. The 9-Macanese vascular sheath was then removed from the right internal jugular vein, and hemostasis was achieved with direct manual compression. The patient tolerated the procedure well. Pressure measurements (mmHg) Wedge hepatic=17 Free hepatic vein=4 Right atrium=3 Total Fluoroscopic Exposure 32 mGy Complications None Specimens Removed As described in the above report. Estimated Blood Loss Less than 2 mL Blood/Blood Products Administered None Grafts/Implants None Impression: Successful, uncomplicated transjugular liver biopsy with pressure measurements as described above. [facility]-[id number] Performing Organization Address City/[facility] Phone Number [facility] [address] [place] [address] Surgical pathology request (08/04/2018 9:18 AM HISTOTECHNOLOGIST)Only the most recent of2 resultswithin the time period is included. [facility] DEPARTMENT OF PATHOLOGY AND GENOMIC MEDICINE Surgical pathology report See link below for PDF [facility] DEPARTMENT OF Lab Report PATHOLOGY AND GENOMIC MEDICINE Result status This is Final Report [facility] DEPARTMENT OF for [id number] PATHOLOGY AND GENOMIC MEDICINE Performing Organization Address [facility] Phone Number [facility] DEPARTMENT OF PATHOLOGY AND [address] [place] [address] [employer] MEDICINE Cv ecg exercise stress (no imaging) (08/02/2018 3:17 PM HISTOTECHNOLOGIST) Resting HR 54 [facility]USE Resting BP 110 [facility] Peak MET Achieved 1.0 [facility] MUSE Protocol Name REGADENO [facility] MUSE Time in Exercise Phase 00:01:00 [facility] Max Systolic BP 117 [facility] Max Diastolic BP 72 [facility] Max Heart Rate 77 [facility] Max Predicted Heart Rate 166 [facility] MUSE Target HR Formula (220 - Age)*100% [facility] MUSE Test Indication chest pain [facility] MUSE Stress Test Impression -Waveform interpreted in report [facility] MUSE associated with image study. No interpretation is provided as part of this Stress ECG report.-Electronically Signed By Tejas WHALEN, Pollo García ([id number]), science editor Leeanne Espinoza ([id number]) on 08/02/2018 2:17:57 PM Target HR 166.00 bpm [facility] MUSE Narrative Performed At Performing Organization Address City/State/Zipcode Phone Number [facility] MUSE [address] [place] [address] Myocardial perfusion (08/02/2018 3:17 PM HISTOTECHNOLOGIST) [facility]arrative [facility]formed At [facility] Cardiac CT [address] [address] Myocardial Perfusion Imaging Report Stress ECG tracings are available in MUSE, EPIC and [employer] All ECG interpretations are included in this report Pat.Name:HEADPOLLO.ID:[id number] .Date: 08/02/2018Refer.MD:ROBERTA PAUL MD Exam Time: 9:30:00 AM Study Type:Myocardial Perfusion Imaging Height:74inBSA: 1.98 m2 DOBAge:1965,53Y Sex: MALE BP:110/71HR: 52 bpm HCT: 37.7 % Nuclear Tech:Jose Guy CNMT, SYBIL [place], ARRT (CT) Room:[address] Event ID: [id number] Order ID:[id number] Reason for Study:Chest pain, unspecified* History / Clinical:Gastric Ulcers, Lyme Disease, Hep B, Cam- De Paz, Family Hx of CAD Procedures:Single Day Stress / Rest Risk Factors:Angina, Family history of cardiovascular disease Clinical Symptoms:Regadenoson Surgery: Serum K+ Date,3.8 on 08/02/18/, Troponin I Date,1)NEG x2 on 08/01/18/ 2)/ 3)/, BUN/Creatinine Date,8/0.64 on 08/02/18/ Medications:Aspirin, Lovenox SUMMARY: SCINTIGRAPHIC RESULTS Perfusion Defect Size (% LV) 0 % Total 0 % Ischemia 0 % Scar Left Ventricular Perfusion Results There is normal tracer distribution during stress and rest. Gated SPECT Results The post-stress left ventricular ejection fraction is 67 % with normal regional wall motion and left ventricular thickening.Left ventricular end-diastolic volume is 116 ml; end-systolic volume is38 ml. The left ventricle is of normal size at stress and at rest.The right ventricle is of normal size with normal wall motion. Conclusion Normal regadenoson Tc-99m tetrofosmin myocardial perfusion study. The left ventricular ejection fraction is normal. CT Findings: There appear to be no coronary artery calcifications present. Cannot exclude small pericardial effusion. Limited lung zhao show no significant abnormalities. Comments Patients with a normal stress myocardial perfusion study have a low (< 1%) annual risk of cardiac or nonfatal myocardial infarction. Study Quality/Artifacts The study quality is good. Comparison to Previous Study None available. STRESS: Baseline Vital Signs:Intervention: Regadenoson 0.4mg/5ml IV over 10 seconds followed by radiotracer injection and 5ml saline flush HR:53 BP:110/71 Stress Test Results: Target HR: 141 Symptoms and Complications: Arrhythmias: None Terminated: As per Regadenoson protocol Symptoms:Shortness of breath Signed 08/02/2018 04:19 PM Izabella Rivera MD Procedure Note Interface, Radiology Results In - 08/02/2018 4:22 PM [facility] Nuclear Cardiology and Cardiac CT [address] [place] [address] Myocardial Perfusion Imaging Report Stress ECG tracings are available in [facility], [employer] and [employer] All ECG interpretations are included in this report Pat.Name: HEAD, POLLO Schmitt.ID: [id number] .Date: 08/02/2018 Refer.MD: ROBERTA PAUL MD Exam Time: 9:30:00 AM Study Type:Myocardial Perfusion Imaging Height: 74in BSA: 1.98 m2 Age: 6 1965,53Y Sex: MALE BP: 110/71 HR: 52 bpm HCT: 37.7 % Nuclear Tech:Jose Guy CNMT, YSBIL [place], ARRT (CT) Room: [address] Nuclear Event ID:[id number] Order ID: [id number] Reason for Study:Chest pain, unspecified* History / Clinical:Gastric Ulcers, Lyme Disease, Hep B, Cam- De Paz, Family Hx of CAD Procedures:Single Day Stress / Rest Risk Factors:Angina, Family history of cardiovascular disease Clinical Symptoms:Regadenoson Surgery: Serum K+ Date, 3.8 on 08/02/18/, Troponin I Date, 1)NEG x2 on 08/01/18/ 2)/ 3)/, BUN/Creatinine Date, 80.64 on 08/02/18 Medications:Aspirin, Lovenox SUMMARY: SCINTIGRAPHIC RESULTS Perfusion Defect Size (% LV) 0 % Total 0 % Ischemia 0 % Scar Left Ventricular Perfusion Results There is normal tracer distribution during stress and rest. Gated SPECT Results The post-stress left ventricular ejection fraction is 67 % with normal regional wall motion and left ventricular thickening. Left ventricular end-diastolic volume is 116 ml; end-systolic volume is 38 ml. The left ventricle is of normal size at stress and at rest. The right ventricle is of normal size with normal wall motion. Conclusion Normal regadenoson Tc-99m tetrofosmin myocardial perfusion study. The left ventricular ejection fraction is normal. CT Findings: There appear to be no coronary artery calcifications present. Cannot exclude small pericardial effusion. Limited lung zhao show no significant abnormalities. Comments Patients with a normal stress myocardial perfusion study have a low (< 1%) annual risk of cardiac or nonfatal myocardial infarction. Study Quality/Artifacts The study quality is good. Comparison to Previous Study None available. STRESS: Baseline Vital Signs: Intervention: Regadenoson 0.4mg/5ml IV over 10 seconds followed by radiotracer injection and 5ml saline flush HR: 53 BP: 110/71 Stress Test Results: Target HR: 141 Symptoms and Complications: Arrhythmias: None Terminated: As per Regadenoson protocol Symptoms: Shortness of breath Signed 08/02/2018 04:19 PM Izabella Rivera MD Performing Organization Address City/State/Zipcode Phone Number [facility] [address] [place] [address] Echocardiogram complete w contrast and 3D if needed (08/02/2018 8:00 AM HISTOTECHNOLOGIST) Narrative Performed At [facility] Echocardiography Report [address] [place] [address] Pat.Name:POLLO RODRIGEZ.ID:[id number] .Date: 08/02/2018Refer.MD:ROBERTA PAUL MD Exam Time: 7:17:00 AMStudy Type:Routine Echo Height:74.02in Weight:160lb BSA: 1.98 m2 DOBAge:1965,53Y Sex: MALEBP:103/57 HR:49 bpmSonogrphr: Beatriz Ramos RDCS Pat. Stat.:[facility] Study Status:Final Echo Event ID:[id number] Order ID:[id number] Reason for Study:Chest pain Procedures:2D Echo, Colorflow Doppler Race:C SUMMARY: LV EF is normal. Estimated EF is 65-69% FINDINGS: LV: LV size is normal. LV EF is normal. Difficult to assess regionalwall motion; however it appears grossly normal. EstimatedEF is 65-69% RV: RV size is probably normal on limited views. RV systolic functionis probably normal on limited views LA: LA volume is difficult to assess. RA: RA size is normal. AO: Aortic root diameter is normal. SHERIDAN: No pericardial effusion. AV: No structural AV abnormalities noted. Mild aortic regurgitation. MV: No structural MV abnormalities noted. PV: No structural PV abnormalities noted. Mild pulmonic regurgitation. TV: Tricuspid valve not well seen. Wagoner: Hepatic vein pressure is normal, RA pressure < 5mmHg. Normal diastolicfunction. Other:Insufficient TR jet to estimate PA systolic pressure. MEASUREMENTS: 2D Parasternal Long [place] LVOT 2 cmLA Ds2.7 cm LVIDd5 cmIndex2.5 cm/m Ao An2.3 cm LVIDs3.6 cmAo Rtd 2.1 cm Index1.1 cm/m LV%fs 28 % LV Gxgj836.6 g(122-174) IVSd 0.6 cmLVM Index 52.8 g/m2 LVPWd0.7 cmRWT0.3 RA Sng Plane RA Area 18 cm2(8.3-19.5) RA Vol62.3 ml Index31.5 ml/m RA LngAx 4.2 cm DOPPLER LVOT Stroke Vol LVOT 2 cmLVOT CO3.6 l/min LVOT TVI23.7 cmLVOT CI1.8 l/m/m2 LVOT Tm362 hrwnJP11 bpm LVOT SV 74.4 ml Signed 08/02/2018 11:16 AM Sebastien Lopez MD Procedure Note Interface, Radiology Results In - 08/02/2018 11:17 AM [facility] Echocardiography Report [address] [address], [place] [address] [facility].Name: HEAD, POLLO Schmitt.ID: [id number] .Date: 08/02/2018 Refer.MD: ROBERTA PAUL MD Exam Time: 7:17:00 AM Study Type:Routine Echo Height: 74.02in Weight: 160lb BSA: 1.98 m2 Age: 6 1965,53Y Sex: MALE BP: 103/57 HR: 49 bpm Sonogrphr: Beatriz Ramos RDCS Pat. Stat.:[facility] Study Status:Final Echo Event ID:[id number] Order ID: [id number] Reason for Study:Chest pain Procedures:2D Echo, Colorflow Doppler Race: C SUMMARY: LV EF is normal. Estimated EF is 65-69% FINDINGS: LV: LV size is normal. LV EF is normal. Difficult to assess regional wall motion; however it appears grossly normal. Estimated EF is 65-69% RV: RV size is probably normal on limited views. RV systolic function is probably normal on limited views LA: LA volume is difficult to assess. RA: RA size is normal. AO: Aortic root diameter is normal. SHERIDAN: No pericardial effusion. AV: No structural AV abnormalities noted. Mild aortic regurgitation. MV: No structural MV abnormalities noted. PV: No structural PV abnormalities noted. Mild pulmonic regurgitation. TV: Tricuspid valve not well seen. Wagoner: Hepatic vein pressure is normal, RA pressure < 5mmHg. Normal diastolic function. Other: Insufficient TR jet to estimate PA systolic pressure. MEASUREMENTS: 2D Parasternal Long [place] LVOT 2 cm LA Ds 2.7 cm LVIDd 5 cm Index 2.5 cm/m Ao An 2.3 cm LVIDs 3.6 cm Ao Rtd 2.1 cm Index 1.1 cm/m LV%fs 28 % LV Mass 104.6 g (122-174) IVSd 0.6 cm LVM Index 52.8 g/m2 LVPWd 0.7 cm RWT 0.3 RA Sng Plane RA Area 18 cm2 (8.3-19.5) RA Vol 62.3 ml Index 31.5 ml/m RA LngAx 4.2 cm DOPPLER LVOT Stroke Vol LVOT 2 cm LVOT CO 3.6 l/min LVOT TVI 23.7 cm LVOT CI 1.8 l/m/m2 LVOT Tm 362 msec HR 49 bpm LVOT SV 74.4 ml Signed 08/02/2018 11:16 AM Sebastien Lopez MD Performing Organization Address City/[facility]/Zipcode Phone Number [facility] [address] [place] [address] Lactic acid level, SEPSIS - Now and repeat 2x every 3 hours (08/02/2018 4:50 AM HISTOTECHNOLOGIST)Only the most recent of2 resultswithin the time period is included. Lactic acid 1.3 0.5 - 2.2 mmol/L [facility] Specimen Blood Performing Organization Address City/[facility]/Zipcode Phone Number [facility] DEPARTMENT OF PATHOLOGY AND [address] [place] [address] [address] [address] Hemoglobin A1c (08/02/2018 4:50 AM HISTOTECHNOLOGIST) Hemoglobin A1C 5.2 4.0 - 5.6 % [facility] Comment: HbA1c cutoffs for diagnosing diabetes: 4.0% - 5.6%=normal 5.7% - 6.4%=increased risk for diabetes (prediabetes) >=6.5%=diabetes Goals for glycemic control (ADA 2016) < 7.0%Target for non adults with diabetes. More or less stringent targets may be appropriate for individual patients. <7.5% Target for Children and adolescents with type 1 diabetes. Specimen Blood Performing Organization Address [facility] Phone Number [facility] DEPARTMENT OF PATHOLOGY AND [address] [place] [address] [address] Lipid panel (08/02/2018 4:50 AM HISTOTECHNOLOGIST) Cholesterol 94 <200 mg/dL [facility] Triglycerides 53 <150 mg/dL [facility] HDL cholesterol 30 (L) >40 mg/dL [facility] LDL cholesterol 63Comment: Result obtained <100 mg/dL [facility] by direct LDL measurement [facility] Lipid panel interpretation SeeBelow [facility] Comment: HOSPITAL Total Cholesterol (mg/dL) <200 Desirable 614-917Lqwvxzobxm-yysm >=240High Triglycerides (mg/dL) <150 Normal 466-704Mcdbmtswgu-izce 200-499High >=500Very high HDL Cholesterol (mg/dL) <40Low (male) <40Low (female) LDL Cholesterol (mg/dL) <100 Optimal 100-129Near or above optimal 221-398Mkjvtrhlxo-avmv 160-189High >=190Very high Risk Catergories that modify LDL goals. Risk CatergoriesLDL goal (mg/dL) CHD and CHD risk equivalent<100 (10-year risk >20%) Multiple (2+) risk factors <130 (10-year risk=<20%) 0-1 risk factors <160 (<10-year risk) Defining levels of lipids in metabolic syndrome Triglycerides>=150 mg/dL HDL Cholesterol Men<40 mg/dL Women<40 mg/dL Non-HDL cholesterol is a second target for therapy in persons with high triglycerides (>=200 mg/dL) Specimen Plasma specimen Performing Organization Address City/State/Zipcode Phone Number [facility] DEPARTMENT OF PATHOLOGY AND [address] [place] [address] [id number] [place] [address] Urine drugs of abuse screen (08/01/2018 6:00 PM HISTOTECHNOLOGIST)Only the most recent of2 resultswithin the time period is included. Amphetamine screen, urine Negative [facility] Barbiturate screen, urine Negative [facility] Benzodiazepine screen, Negative [facility] Cannabinoid screen, urine Negative [facility] Cocaine screen, urine Negative [facility] Methadone metabolite Negative [facility] ([facility]), urine HOSPITAL Opiates screen, urine Negative [facility] Oxycodone screen, urine Negative [facility] Phencyclidine screen, urine Negative [facility] Tricyclic screen, urine Negative [facility] Comment: HOSPITAL Drug screen minimum concentration of detectability Qshjsqbsfzrs4304 ng/mL Barbiturates 200 ng/mL Levptnhionkgzlx096 ng/mL Dxaybgs231 ng/mL Lhtlqcvtl133 ng/mL Dllubfs719 ng/mL Brqejyqet423 ng/mL Phencyclidine 25 ng/mL Qjnbmiudxojk85 ng/mL Jvgzeaxhut1305 ng/mL Negative test results indicates presumptive evidence of lack of clinically significant drug concentration in this urine specimen. Positive test results are presumptive evidence of clinically significant drug concentration in this urine specimen. Testing performed for medical purposes only. Specimen Urine Performing Organization Address City/[facility] Phone Number [facility] DEPARTMENT OF PATHOLOGY AND [address] [place] [address] T4, free (08/01/2018 6:00 PM HISTOTECHNOLOGIST) T4, free 1.2 0.9 - 1.7 ng/dL [facility] Specimen Plasma specimen Performing Organization Address [facility] Phone Number [facility] DEPARTMENT OF PATHOLOGY AND [address] [place] [address] CT Chest Wo Contrast (08/01/2018 5:24 PM HISTOTECHNOLOGIST) Narrative Performed At EXAMINATION: CT CHEST WO CONTRAST RADIANT CLINICAL HISTORY: 53 years Male Pneumoniaunresolved or complicated, Shortness of breath, Pleural effusion, cp sob TECHNIQUE:Multiple axial images of the chest were obtained without intravenous contrast. The lack of intravenous contrast reduces the sensitivity of detecting solid organ disease and evaluating vasculature. Sagittal and coronal computerized reformatted images were also obtained. CT imaging was performed with iterative reconstruction techniques and/or automated exposure control to reduce radiation dose. COMPARISON: None. FINDINGS: Heart: The heart size is normal. Minimal calcification is seen in the LAD. There is no pericardial effusion. Aorta: The ascending aorta is slightly dilated measuring up to 4.3 cm. The transverse arch and descending aorta are unremarkable. Mediastinum: Tiny nonspecific mediastinal lymph nodes are present. There is no evidence of mediastinal or hilar mass or adenopathy. Lungs: Small tubular opacity is present in the posteromedial right upper lobe. There are no focal consolidations or suspicious pulmonary nodules. Pleura: There are no pleural effusions. Upper abdomen: The patient is status post cholecystectomy. There are no adrenal masses. A partially visualized 4.2 cm cyst is present in the lateral upper pole of the right kidney. Osseous structures: No focal abnormality. IMPRESSION: 1.No evidence of pneumonia. 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 3.Benign nodular opacity posteromedial right upper lobe. 4.Status post cholecystectomy. 5.4.2 cm cyst upper pole right kidney. [facility]-[id number] Procedure Note Interface, Radiology Results Incoming - 08/01/2018 6:00 PM HISTOTECHNOLOGIST EXAMINATION: CT CHEST WO CONTRAST CLINICAL HISTORY: 53 years Male Pneumonia unresolved or complicated, Shortness of breath, Pleural effusion, cp sob TECHNIQUE: Multiple axial images of the chest were obtained without intravenous contrast. The lack of intravenous contrast reduces the sensitivity of detecting solid organ disease and evaluating vasculature. Sagittal and coronal computerized reformatted images were also obtained. CT imaging was performed with iterative reconstruction techniques and/or automated exposure control to reduce radiation dose. COMPARISON: None. FINDINGS: Heart: The heart size is normal. Minimal calcification is seen in the LAD. There is no pericardial effusion. Aorta: The ascending aorta is slightly dilated measuring up to 4.3 cm. The transverse arch and descending aorta are unremarkable. Mediastinum: Tiny nonspecific mediastinal lymph nodes are present. There is no evidence of mediastinal or hilar mass or adenopathy. Lungs: Small tubular opacity is present in the posteromedial right upper lobe. There are no focal consolidations or suspicious pulmonary nodules. Pleura: There are no pleural effusions. Upper abdomen: The patient is status post cholecystectomy. There are no adrenal masses. A partially visualized 4.2 cm cyst is present in the lateral upper pole of the right kidney. Osseous structures: No focal abnormality. IMPRESSION: 1. No evidence of pneumonia. 2. 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 3. Benign nodular opacity posteromedial right upper lobe. 4. Status post cholecystectomy. 5. 4.2 cm cyst upper pole right kidney. [facility]-[id number] Performing Organization Address City/State/Zipcode Phone Number [facility] [address] [place] [address] [place] Lung Ventilation Perfusion (08/01/2018 4:39 PM HISTOTECHNOLOGIST) Narrative Performed At CLINICAL HISTORY: PE suspectedintermediate probneg D-dimer HM RADIANT TECHNIQUE: The patient breathed 15-20 mCi of xenon-133 gas through a closed ventilation system while dynamic imaging of the lungs was performed in the posterior and anterior projections. The patient was then injected with 5 mCi of [id number]-66h-VQY intravenously, followed by imaging of the lungs in 8 projections. FINDINGS: Ventilation and perfusion are normal bilaterally. IMPRESSION: Normal VQ scan. [facility]-[id number] Procedure Note Hm Interface, Radiology Results Incoming - 08/01/2018 5:04 PM HISTOTECHNOLOGIST CLINICAL HISTORY: PE suspected intermediate prob neg D-dimer TECHNIQUE: The patient breathed 15-20 mCi of xenon-133 gas through a closed ventilation system while dynamic imaging of the lungs was performed in the posterior and anterior projections. The patient was then injected with 5 mCi of [id number]-89t-MHJ intravenously, followed by imaging of the lungs in 8 projections. FINDINGS: Ventilation and perfusion are normal bilaterally. IMPRESSION: Normal VQ scan. [facility]-[id number] Performing Organization Address [facility] Phone Number [facility] [address] [place] [address] ECG 12 lead (08/01/2018 2:17 PM HISTOTECHNOLOGIST)Only the most recent of3 resultswithin the time period is included. Ventricular rate 52 [facility] Atrial rate 52 [facility] HI interval 126 [facility] QRSD interval 94 [facility] QT interval 448 [facility] QTC interval 416 [facility] P axis 1 53 [facility] QRS axis 1 70 [facility] MUSE T wave axis 74 [facility] MUSE EKG impression Sinus bradycardia-Otherwise normal ECG-In [facility] M[facility] automated comparison with ECG of 01-AUG-2018 10:45,-No significant change was found- Narrative Performed At Performing Organization Address [facility] Phone Number [facility] [address] [place] [address] ECG ED Preliminary Interpretation - Not an Order (08/01/2018 11:54 AM HISTOTECHNOLOGIST)Only the most recent of2 resultswithin the time period is included. Narrative Performed At La Naylor MD 08/01/20186:03 PM ECG ED Preliminary Interpretation - Not an Order Performed by: La Naylor MD Authorized by: La Naylor MD ECG reviewed by ED Physician in the absence of a space operations: yes Previous ECG: Previous ECG:Compared to current Similarity:No change (Earlier today, this is ECG 2) Interpretation: Interpretation: non-specific Rate: ECG rate:52 ECG rate assessment: bradycardic Rhythm: Rhythm: sinus bradycardia Ectopy: Ectopy: none QRS: QRS axis:Normal QRS intervals:Normal Conduction: Conduction: normal ST segments: ST segments:Normal T waves: T waves: normal Comments: ECG 2 at 1417. No ischemic changes Type and screen (08/01/2018 11:45 AM HISTOTECHNOLOGIST) ABO grouping A [facility] Rh type POS [facility] Antibody screen (gel) NEG [facility] Specimen Blood Performing Organization Address City/[facility] Phone Number [facility] DEPARTMENT OF PATHOLOGY AND [address] [place] [address] GENOMIC MEDICINE [address] [address] XR Chest 1 Vw Portable (08/01/2018 11:29 AM HISTOTECHNOLOGIST) Narrative Performed At EXAMINATION:XR CHEST 1 VW PORTABLE RADIANT CLINICAL HISTORY:Shortness of breath COMPARISON:08/17/2008 IMPRESSION: Heart and mediastinum are stable. Lungs are clear. Cervical spine surgery again seen. [facility]-[id number] Procedure Note Hm Interface, Radiology Results Incoming - 08/01/2018 11:44 AM HISTOTECHNOLOGIST EXAMINATION: XR CHEST 1 VW PORTABLE CLINICAL HISTORY: Shortness of breath COMPARISON: 08/17/2008 IMPRESSION: Heart and mediastinum are stable. Lungs are clear. Cervical spine surgery again seen. [facility]-[id number] Performing Organization Address City/[facility] Phone Number [address] [address] Estimated GFR (05/21/2018 5:31 AM CDT)Only the most recent of4 resultswithin the time period is included. GFR Non Af Amer >90 mL/min/1.73 m2 [facility] DEPARTMENT OF PATHOLOGY AND GENOMIC MEDICINE GFR Af Amer >90 mL/min/1.73 m2 [facility] DEPARTMENT OF Comment: PATHOLOGY AND GENOMIC Chronic kidney disease: <60 mL/min/1.73m2 MEDICINE Kidney failure: <15 mL/min/1.73m2 The estimated GFR is calculated from the IDMS-traceable Modification of Diet in Renal Disease Equation. The accuracy of the calculation is poor when the creatinine is normal. Calculated values >90 mL/min/1.73m2 are not reported. This equation has not been validated in children (<18 years), women, the elderly (>70 years), or ethnic groups other than Caucasians and Americans. Specimen Plasma specimen Performing Organization Address City/State/Zipcode Phone Number [facility] DEPARTMENT PATHOLOGY [address] [place] [address] [facility] [employer] Basic metabolic panel (05/21/2018 5:31 AM CDT)Only the most recent of2 resultswithin the time period is included. Sodium 141 135 - 148 mEq/L [facility] DEPARTMENT OF PATHOLOGY AND GENOMIC MEDICINE Potassium 3.9 3.5 - 5.0 mEq/L [facility] DEPARTMENT OF PATHOLOGY AND GENOMIC MEDICINE Chloride 107 98 - 112 mEq/L [facility] DEPARTMENT OF PATHOLOGY AND GENOMIC MEDICINE CO2 26 24 - 31 mEq/L [facility] [facility]OMIC MEDICINE Anion gap 8@ANIO 7 - 15 mEq/L [facility] DEPARTMENT OF PATHOLOGY [facility] GENOMIC MEDICINE BUN 5 (L) 6 - 20 mg/dL [facility]OLOGY [facility] GENOMIC MEDICINE Creatinine 0.6 (L) 0.7 - 1.2 mg/dL [facility] DEPART[facility]OLOGY [facility] GENOMIC MEDICINE Glucose 91 65 - 99 mg/dL [facility] DEPART[facility] OF [facility]OLOGY [facility] GENOMIC MEDICINE Calcium 8.6 8.3 - 10.2 mg/dL [facility] DEPARTMENT OF PATHOLOGY AND GENOMIC MEDICINE Specimen Plasma specimen Performing Organization Address City/State/Zipcode Phone Number [facility] [id number] [place] [address] [address] [employer] CT Abdomen Pelvis W Contrast (05/19/2018 6:15 PM CDT) Narrative Performed At EXAM: CT ABDOMEN PELVIS W CONTRAST RADIANT CLINICAL HISTORY:upper abd pain TECHNIQUE: Multidetector CT of the abdomen and pelvis was performed following intravenous administration of iodinated contrast with multiplanar reformats. CT scans are performed using radiation dose reduction techniques (iterative reconstruction and/or automated exposure control). Technical factors are evaluated and adjusted to ensure appropriate moderation of exposure. Automated dose management technology is applied to adjust radiation exposure while achieving a diagnostic quality image. COMPARISON:None FINDINGS: Lung bases: Dependent atelectasis. Otherwise unremarkable. Liver:No evidence for suspicious focal hepatic lesion. Gallbladder and biliary:Patient is status post cholecystomy. Common duct prominence/mild dilatation which tapers towards the ampulla of Vater is noted, frequently seen post cholecystectomy. Pancreas:No focal pancreatic lesion identified. No pancreatic duct dilatation. Spleen: Unremarkable. Gastrointestinal:Stomach is unremarkable in appearance. A paucity of fat planes limits the evaluation for intraperitoneal inflammatory changes. Large and small bowel are normal in caliber. Appendix is not visualized. No focal inflammatory changes within the right lower quadrant of the abdomen. Peritoneum:No ascites or free air. Adrenals: Unremarkable. Kidneys and ureters:Evidence for bilateral renal cysts, largest measuring 4.9 cm at the right renal upper/mid pole (image 42, series 2). There is no evidence for large irregular renal mass, obstructing calculi, hydronephrosis, or hydroureter. Urinary bladder: Unremarkable. Reproductive organs:Mild prostatomegaly (5.3 cm transverse dimension, axial image 147, series 2). Lymph nodes:No enlarged lymph nodes in the abdomen or pelvis. Vascular:Unremarkable. Abdominal wall:Unremarkable. Bones:No acute osseous abnormality identified. IMPRESSION: 1.A paucity of fat planes limits the evaluation for intraperitoneal inflammatory changes. Taking this into consideration, no CT evidence for acute abdominopelvic process. 2.Bilateral renal cysts. 3.Mild prostatomegaly. 4.Additional chronic findings as listed. [facility]-[id number] Procedure Note [facility], Radiology Results Incoming - 05/19/2018 6:24 PM CDT EXAM: CT ABDOMEN PELVIS W CONTRAST CLINICAL HISTORY: upper abd pain TECHNIQUE: Multidetector CT of the abdomen and pelvis was performed following intravenous administration of iodinated contrast with multiplanar reformats. CT scans are performed using radiation dose reduction techniques (iterative reconstruction and/or automated exposure control). Technical factors are evaluated and adjusted to ensure appropriate moderation of exposure. Automated dose management technology is applied to adjust radiation exposure while achieving a diagnostic quality image. COMPARISON: None FINDINGS: Lung bases: Dependent atelectasis. Otherwise unremarkable. Liver: No evidence for suspicious focal hepatic lesion. Gallbladder and biliary: Patient is status post cholecystomy. Common duct prominence/mild dilatation which tapers towards the ampulla of Vater is noted, frequently seen post cholecystectomy. Pancreas: No focal pancreatic lesion identified. No pancreatic duct dilatation. Spleen: Unremarkable. Gastrointestinal: Stomach is unremarkable in appearance. A paucity of fat planes limits the evaluation for intraperitoneal inflammatory changes. Large and small bowel are normal in caliber. Appendix is not visualized. No focal inflammatory changes within the right lower quadrant of the abdomen. Peritoneum: No ascites or free air. Adrenals: Unremarkable. Kidneys and ureters: Evidence for bilateral renal cysts, largest measuring 4.9 cm at the right renal upper/mid pole (image 42, series 2). There is no evidence for large irregular renal mass, obstructing calculi, hydronephrosis, or hydroureter. Urinary bladder: Unremarkable. Reproductive organs: Mild prostatomegaly (5.3 cm transverse dimension, axial image 147, series 2). Lymph nodes: No enlarged lymph nodes in the abdomen or pelvis. Vascular: Unremarkable. Abdominal wall: Unremarkable. Bones: No acute osseous abnormality identified. IMPRESSION: 1. A paucity of fat planes limits the evaluation for intraperitoneal inflammatory changes. Taking this into consideration, no CT evidence for acute abdominopelvic process. 2. Bilateral renal cysts. 3. Mild prostatomegaly. 4. Additional chronic findings as listed. [facility]-[id number] Performing Organization Address City/State/Zipcode Phone Number [facility] [address] [place] [address] [place] Hepatic (05/19/2018 5:39 PM CDT) Narrative Performed At EXAMINATION:US HEPATIC [facility] CLINICAL HISTORY:RUQ US ruq and epigastric pain COMPARISON:None. TECHNIQUE:Ultrasound evaluation of the liver. FINDINGS: LIVER:Normal size and parenchymal echogenicity. There is no solid mass. BILIARY:Patient is status post cholecystectomy. There is no focal drainable fluid collection in the gallbladder fossa. The common bile duct measures 5 mm, within normal limits. There is mild intrahepatic biliary ductal dilatation. VASCULATURE:The portal vein is normal in size and patent with hepatopedal flow. PERITONEUM:No ascites in the right upper quadrant. IMPRESSION: Status post cholecystectomy with expected mild biliary ductal dilatation. No focal drainable fluid collection in the gallbladder fossa. [id number] Procedure Note Hm Interface, Radiology Results Incoming - 05/19/2018 5:47 PM CDT EXAMINATION: US HEPATIC CLINICAL HISTORY: RUQ US ruq and epigastric pain COMPARISON: None. TECHNIQUE: Ultrasound evaluation of the liver. FINDINGS: LIVER: Normal size and parenchymal echogenicity. There is no solid mass. BILIARY: Patient is status post cholecystectomy. There is no focal drainable fluid collection in the gallbladder fossa. The common bile duct measures 5 mm, within normal limits. There is mild intrahepatic biliary ductal dilatation. VASCULATURE: The portal vein is normal in size and patent with hepatopedal flow. PERITONEUM: No ascites in the right upper quadrant. IMPRESSION: Status post cholecystectomy with expected mild biliary ductal dilatation. No focal drainable fluid collection in the gallbladder fossa. [facility]-[id number] Performing Organization Address City/State/Zipcode Phone Number [facility] [address] [place] [address] after 01/09/2018 Insurance Payer Benefit Plan / Group Subscriber ID Type Phone Address MEDICARE MEDICARE PART A AND B xxxxxxxxxx Medicare [place], [place] (Work) [phone] Advance Directives Patient has advance care planning documents, and code status on file. For more information, please contact:Ismael Jimenez[address] [place] [address] Code Status Date Activated Date Inactivated Comments Full Code 05/19/2018 9:20 PM 05/21/2018 8:38 PM Code Status decision reached by: Patient
--- OUTSIDE RECORDS SUMMARY | 2019-01-10 18:44 | XMS REPORT ---
:1965 [facility] Address [address] [place] [address] Care Team Providers Name Role Phone Unavailable Unavailable Unavailable Problems This patient has no known problems. Allergies, Adverse Reactions, Alerts This patient has no known allergies or adverse reactions. Medications This patient has no known medications.
[2019-01-10] MEDS ORDERED: NA CHLORIDE 0.9% 1,000 ML ONE (19:25)
--- NOTE | 2019-01-10 19:49 | RAD REPORT ---
EXAM DESCRIPTION: CT - Stone Protocol - 01/10/2019 7:25 pm CLINICAL HISTORY: Abdominal pain. Flank pain COMPARISON: April 2018 TECHNIQUE: Computed axial tomography of the abdomen pelvis was obtained without oral or IV contrast. Lack of IV and oral contrast limits evaluation of solid organs, bowel, and vessels. Coronal reformat dorie images were obtained and reviewed. All CT scans are performed using dose optimization technique as appropriate and may include automated exposure control or mA/KV adjustment according to patient size. FINDINGS: A 1 millimeter left renal calculus is present. Hydronephrosis is not seen An ureteral calc ulus is not noted. A bladder calculus is not present. A 4.6 centimeter right renal cyst The liver, spleen, pancreas and adrenals appear grossly normal There is no evidence of diverticulitis. The gallbladder has been removed Moderate amount stool is present throughout the colon IMPRESSION: 1 millimeter nonobstructing left renal calculus
[2019-01-10 19:55] LABS: Absolute Lymphocytes (CBC) 1.5 K/uL (0.7-4.9); Absolute Monocytes 0.3 K/uL (0.1-1.3); Absolute Neutrophil 3.7 K/uL (1.8-8.0); Basophils % 0.5 % (0-1.3); Eosinophils % 1.3 % (0-4.4); Hematocrit 46.7 % (39.6-49.0); Lymphocytes % 26.6 % (15.3-44.8); MPV 9.2 fL (7.6-11.3); Monocytes % 5.6 % (3.3-12.3); RBC Red Blood Cell Count 4.89 M/uL (4.33-5.43)
[2019-01-10 20:00] LABS: Urine RBC NONE SEEN /HPF (NONE SEEN)
[2019-01-10 20:01] LABS: Urine Blood NEGATIVE (NEG); Urine Glucose NEGATIVE (NEG); Urine Protein NEGATIVE (NEG); Urine Specific Gravity <1.005 (1.005-1.030); Urine pH 5.5 (5.0-7.0)
[2019-01-10 20:01] LABS: Urine Bacteria NONE SEEN /HPF (NONE SEEN); Urine Culture Reflex Order NOT NEEDED
[2019-01-10 20:10] LABS: ALT/SGPT 88 U/L (12-78); AST/SGOT 34 U/L (15-37); Albumin 4.4 g/dL (3.4-5.0); Alkaline Phosphatase 77 U/L (45-117); BUN Blood Urea Nitrogen 5 mg/dL (7-18); Bicarbonate 28 mmol/L (21-32); Bilirubin Direct 0.3 mg/dL (0-0.2); Glucose Level 90 mg/dL (74-106); Lipase 82 U/L (73-393); Potassium 4.5 mmol/L (3.5-5.1); Protein, Total 7.9 g/dL (6.4-8.2); Sodium Level 136 mmol/L (136-145)
--- NOTE | 2019-01-10 20:14 | EDPHYS ---
Physician Documentation [facility] Name: Reji Rodrigez Age: 53 yrs Sex: Male : 1965 Arrival Date: 01/10/2019 Time: 18:40 Bed 20 Private MD: ED Physician Werner Davidson HPI: 01/10 19:06 This 53 yrs old Male presents to ER via Wheelchair with complaints of Urinary pm1 Problem, Abdominal Pain, Back Pain. 19:06 The patient presents with abdominal pain that is diffuse. Onset: The symptoms/episode pm1 began/occurred multiple years. The symptoms do not radiate. Associated signs and symptoms: Pertinent positives: constipation, dark urine, Pertinent negatives: nausea, vomiting, and diarrhea, chest pain, dysuria, fever, headache, shortness of breath. The symptoms are described as achy. Modifying factors: The symptoms are alleviated by nothing, the symptoms are aggravated by nothing. Severity of pain: in the emergency department the pain is actually worse. The patient has experienced similar episodes in the past, chronically, and the symptoms today are exactly the same. The patient has been recently seen by a physician: with similar presenting complaints, lab tests were done, CT scan was done, Patient was seen at [facility] and had CT head, CT neck, and CT thoracic spine with labs performed 2 days ago with the same complaint. Patient wants a RACHID test because he feels that his cervical surgery is causing all of his symptoms. Historical: - Allergies: 18:51 "everything I take makes me nausous"; la1 18:51 Lyrica; la1 - Home Meds: 18:51 ativan enema 0.5mg daily [Active]; la1 - PMHx: 18:51 Anxiety; "mold toxicity"; c4-c7 fused, neck pain; epstine torres high a ccouple times; la1 gastritis; Hepatitis; Hypothyroidism; lyme disease; - Immunization history:: Adult Immunizations up to date. - Social history:: Smoking status: Patient/guardian denies using tobacco. - Ebola Screening: : No symptoms or risks identified at this time. ROS: 19:06 Constitutional: Negative for fever, chills, and weight loss, Eyes: Negative for injury, pm1 pain, redness, and discharge, ENT: Negative for injury, pain, and discharge, Neck: Negative for injury, pain, and swelling, Cardiovascular: Negative for chest pain, palpitations, and edema, Respiratory: Negative for shortness of breath, cough, wheezing, and pleuritic chest pain. 19:06 Back: Negative for injury and pain, MS/Extremity: Negative for injury and deformity, Skin: Negative for injury, rash, and discoloration, Neuro: Negative for headache, weakness, numbness, tingling, and seizure. 19:06 Abdomen/GI: Positive for abdominal pain, constipation, Negative for nausea, vomiting, and diarrhea. 19:06 : Positive for dark urine, Negative for burning with urination, difficulty urinating, foul smelling urine, penile discharge, penile pain, testicular pain Exam: 19:08 Constitutional: This is a well developed, well nourished patient who is awake, alert, pm1 and in no acute distress. Head/Face: Normocephalic, atraumatic. Eyes: Pupils equal round and reactive to light, extra-ocular motions intact. Lids and lashes normal. Conjunctiva and sclera are non-icteric and not injected. Cornea within normal limits. Periorbital areas with no swelling, redness, or edema. ENT: Nares patent. No nasal discharge, no septal abnormalities noted. Tympanic membranes are normal and external auditory canals are clear. Oropharynx with no redness, swelling, or masses, exudates, or evidence of obstruction, uvula midline. Mucous membranes moist. Neck: Trachea midline, no thyromegaly or masses palpated, and no cervical lymphadenopathy. Supple, full range of motion without nuchal rigidity, or vertebral point tenderness. No Meningismus. Chest/axilla: Normal chest wall appearance and motion. Nontender with no deformity. No lesions are appreciated. Cardiovascular: Regular rate and rhythm with a normal S1 and S2. No gallops, murmurs, or rubs. Normal PMI, no JVD. No pulse deficits. Respiratory: Lungs have equal breath sounds bilaterally, clear to auscultation and percussion. No rales, rhonchi or wheezes noted. No increased work of breathing, no retractions or nasal flaring. Abdomen/GI: Soft, non-tender, with normal bowel sounds. No distension or tympany. No guarding or rebound. No evidence of tenderness throughout. Back: No spinal tenderness. No costovertebral tenderness. Full range of motion. Skin: Warm, dry with normal turgor. Normal color with no rashes, no lesions, and no evidence of cellulitis. MS/ Extremity: Pulses equal, no cyanosis. Neurovascular intact. Full, normal range of motion. 19:08 Neuro: Orientation: is normal, Motor: is normal, moves all fours. Vital Signs: 18:49 BP 120 / 75; Pulse 81; Resp 16; Temp 98.7(TE); Pulse Ox 98% on R/A; Weight 70.31 kg; la1 Height 6 ft. 2 in. (187.96 cm); 20:00 BP 115 / 70; Pulse 80; Resp 17; Pulse Ox 99% on R/A; rr5 21:00 BP 121 / 70; Pulse 81; Resp 17; Pulse Ox 99% on R/A; Pain 10/10; rr5 22:00 BP 116 / 76; Pulse 78; Resp 16; Pulse Ox 98% ; Pain 2/10; rr5 23:00 BP 118 / 70; Pulse 79; Resp 19; Pulse Ox 100% ; rr5 18:49 Body Mass Index 19.90 (70.31 kg, 187.96 cm) la1 MDM: 18:56 Data reviewed: vital signs. Data interpreted: Pulse oximetry: on room air is 98 %. pm1 Interpretation: normal. 18:59 Patient medically screened. pm1 20:12 Counseling: I had a detailed discussion with the patient and/or guardian regarding: the pm1 historical points, exam findings, and any diagnostic results supporting the discharge/admit diagnosis, lab results, radiology results, the need for outpatient follow up, to return to the emergency department if symptoms worsen or persist or if there are any questions or concerns that arise at home. 21:21 ED course: Patient offered multiple medications for pain management but he reported pm1 allergies to all the IV and PO medications I offered. Jigar present at the time I discussed medications we can offer in the ER. Recommended pain management evaluation since these problems have been ongoing for multiple years. Susie COVINGTON knows the patient well as he goes to [facility] for the same complaints. She reports that he typically gets Ativan and Benadryl for this pain and he would like the same treatment today . 01/10 19:06 Order name: Basic Metabolic Panel pm1 01/10 19:06 Order name: CBC with Diff; Complete Time: 20:02 pm1 01/10 19:06 Order name: Creatinine for Radiology; Complete Time: 20:11 pm1 01/10 19:06 Order name: Hepatic Function; Complete Time: 20:11 pm1 01/10 19:06 Order name: Lipase; Complete Time: 20:11 pm1 01/10 19:06 Order name: Urine Microscopic Only; Complete Time: 20:02 pm1 01/10 19:06 Order name: CT Stone Protocol; Complete Time: 19:50 pm1 01/10 19:06 Order name: IV Saline Lock; Complete Time: 20:05 pm1 01/10 19:07 Order name: Basic Metabolic Panel; Complete Time: 20:11 EDMS 01/10 19:47 Order name: Urine Dipstick--Ancillary (enter results); Complete Time: 20:02 ar5 01/10 19:06 Order name: Labs collected and sent; Complete Time: 20:05 pm1 01/10 19:06 Order name: Urine Dipstick-Ancillary (obtain specimen); Complete Time: 19:48 pm1 Administered Medications: 19:40 Drug: NS 0.9% 1000 ml Route: IV; Rate: 1000 ml; Site: right forearm; rr5 21:00 Follow up: Response: No adverse reaction; IV Status: Completed infusion; IV Intake: rr5 1000ml 21:25 Drug: Benadryl 12.5 mg Route: IVP; Site: right forearm; rr5 23:00 Follow up: Response: No adverse reaction; Marked relief of symptoms rr5 21:25 Drug: Benadryl 12.5 mg Route: IVP; Site: right forearm; rr5 23:00 Follow up: Response: No adverse reaction; Marked relief of symptoms rr5 21:27 Drug: Ativan 1 mg Route: IVP; Site: right forearm; rr5 23:00 Follow up: Response: No adverse reaction; Marked relief of symptoms rr5 Disposition: 01/11 07:00 Co-signature as Attending Physician, Werner Davidson MD. rn Disposition: 01/10/19 20:13 Discharged to Home. Impression: Unspecified abdominal pain. - Condition is Stable. - Discharge Instructions: Abdominal Pain, Adult. - Medication Reconciliation Form, Thank You Letter, Antibiotic Education, Prescription Opioid Use form. - Follow up: Emergency Department; When: As needed; Reason: Worsening of condition. Follow up: Private Physician; When: 2 - 3 days; Reason: Recheck today's complaints, Continuance of care, Re-evaluation by your physician. - Problem is new. - Symptoms have improved. Signatures: Dispatcher [employer] EDMS Werner Davidson MD MD rn Attema, Lee, RN RN la1 Josr Winston, [employer] pm1 Jigar Salgado RN RN rr5 Corrections: (The following items were deleted from the chart) 01/10 18:57 18:56 Counseling: I had a detailed discussion with the patient and/or guardian pm1 regarding: the historical points, exam findings, and any diagnostic results supporting the discharge/admit diagnosis, the need for outpatient follow up, for definitive care, a urologist, to return to the emergency department if symptoms worsen or persist or if there are any questions or concerns that arise at home, pm1 23:10 20:13 01/10/2019 20:13 Discharged to Home. Impression: Unspecified abdominal pain. rr5 Condition is Stable. Forms are Medication Reconciliation Form, Thank You Letter, Antibiotic Education, Prescription Opioid Use. Follow up: Emergency Department; When: As needed; Reason: Worsening of condition. Follow up: Private Physician; When: 2 - 3 days; Reason: Recheck today's complaints, Continuance of care, Re-evaluation by your physician. Problem is new. Symptoms have improved. pm1
--- NOTE | 2019-01-10 20:14 | ER ---
Nurse's Notes [facility] Name: Reji Rodrigez Age: 53 yrs Sex: Male : 1965 Arrival Date: 01/10/2019 Time: 18:40 Bed 20 Private MD: Diagnosis: Unspecified abdominal pain Presentation: 01/10 18:51 Presenting complaint: Patient states: I have this awful abd pain, have not had BM in 6 la1 days, and my urine is very dark. Transition of care: patient was not received from another setting of care. Onset of symptoms was January 10, 2019. Risk Assessment: Do you want to hurt yourself or someone else? Patient reports no desire to harm self or others. Initial Sepsis Screen: Does the patient meet any 2 criteria? No. Patient's initial sepsis screen is negative. Does the patient have a suspected source of infection? No. Patient's initial sepsis screen is negative. Care prior to arrival: None. 18:51 Method Of Arrival: Wheelchair la1 18:51 Acuity: TELLO 3 la1 Historical: - Allergies: 18:51 "everything I take makes me nausous"; la1 18:51 Lyrica; la1 - Home Meds: 18:51 ativan enema 0.5mg daily [Active]; la1 - PMHx: 18:51 Anxiety; "mold toxicity"; c4-c7 fused, neck pain; epstine torres high a ccouple times; la1 gastritis; Hepatitis; Hypothyroidism; lyme disease; - Immunization history:: Adult Immunizations up to date. - Social history:: Smoking status: Patient/guardian denies using tobacco. - Ebola Screening: : No symptoms or risks identified at this time. Screenin:45 Abuse screen: Denies threats or abuse. Denies injuries from another. Nutritional rr5 screening: No deficits noted. Tuberculosis screening: No symptoms or risk factors identified. Fall Risk IV access (20 points). Total Olea Fall Scale indicates No Risk (0-24 pts). Assessment: 19:30 General: Appears in no apparent distress. uncomfortable, Behavior is calm, cooperative, rr5 appropriate for age. Pain: Complains of pain in abdomen Pain radiates to back Pain currently is 10 out of 10 on a pain scale. Quality of pain is described as crushing, Pain began gradually, Is intermittent. 19:30 Neuro: Level of Consciousness is awake, alert, obeys commands, Oriented to person, rr5 place, time, situation, Appropriate for age. Cardiovascular: Capillary refill < 3 seconds Patient's skin is warm and dry. Respiratory: Airway is patent Respiratory effort is even, unlabored, Respiratory pattern is regular, symmetrical. GI: Abdomen is flat, Bowel sounds present X 4 quads. Abd is soft and non tender X 4 quads. Reports lower abdominal pain, upper abdominal pain, constipation, nausea. : Urine is clear, Reports difficulty urination. EENT: No signs and/or symptoms were reported regarding the EENT system. Derm: Skin is intact, Skin temperature is warm. Musculoskeletal: Capillary refill < 3 seconds, Range of motion: intact in all extremities. 20:30 Reassessment: pain medications refused by the patient whether IV or tablet. rr5 20:50 Reassessment: Ed provider explained the discharge instruction and plan of care to rr5 patient but refused for all the medications offered. does not want to go home he wants to know what is wrong with him. Charge nurse and ED provider aware. 21:05 Reassessment: Patient appears in no apparent distress at this time. Patient is alert, rr5 oriented x 3, equal unlabored respirations, skin warm/dry/pink. patient agreed to take medications. 22:00 Reassessment: Patient appears in no apparent distress at this time. Patient is alert, rr5 oriented x 3, equal unlabored respirations, skin warm/dry/pink. talking on his phone. no facial grimace noted. Patient states feeling better. Patient states symptoms have improved. 23:00 Reassessment: Patient appears in no apparent distress at this time. Patient is alert, rr5 oriented x 3, equal unlabored respirations, skin warm/dry/pink. no complaints made. discharge instruction given and explained without complaints made. Patient states feeling better. Patient states symptoms have improved. Vital Signs: 18:49 BP 120 / 75; Pulse 81; Resp 16; Temp 98.7(TE); Pulse Ox 98% on R/A; Weight 70.31 kg; la1 Height 6 ft. 2 in. (187.96 cm); 20:00 BP 115 / 70; Pulse 80; Resp 17; Pulse Ox 99% on R/A; rr5 21:00 BP 121 / 70; Pulse 81; Resp 17; Pulse Ox 99% on R/A; Pain 10/10; rr5 22:00 BP 116 / 76; Pulse 78; Resp 16; Pulse Ox 98% ; Pain 2/10; rr5 23:00 BP 118 / 70; Pulse 79; Resp 19; Pulse Ox 100% ; rr5 18:49 Body Mass Index 19.90 (70.31 kg, 187.96 cm) la1 ED Course: 18:40 Patient arrived in ED. as 18:49 Arm band placed on right wrist. la1 18:51 Triage completed. la1 18:56 Josr Winston, DAK[place] is PHCP. pm1 18:56 Werner Davidson MD is Attending Physician. pm1 19:10 Jigar Salgado RN is Primary Nurse. rr5 19:23 CT completed. Patient tolerated procedure well. Patient moved back from CT. bq 19:25 CT Stone Protocol In Process Unspecified. EDMS 19:30 Patient has correct armband on for positive identification. Placed in gown. Bed in low rr5 position. Call light in reach. Side rails up X2. Pulse ox on. NIBP on. 19:40 Inserted saline lock: 20 gauge in right forearm, using aseptic technique. Blood rr5 collected. 23:00 No provider procedures requiring assistance completed. IV discontinued, intact, rr5 bleeding controlled, No redness/swelling at site. Pressure dressing applied. Administered Medications: 19:40 Drug: NS 0.9% 1000 ml Route: IV; Rate: 1000 ml; Site: right forearm; rr5 21:00 Follow up: Response: No adverse reaction; IV Status: Completed infusion; IV Intake: rr5 1000ml 21:25 Drug: Benadryl 12.5 mg Route: IVP; Site: right forearm; rr5 23:00 Follow up: Response: No adverse reaction; Marked relief of symptoms rr5 21:25 Drug: Benadryl 12.5 mg Route: IVP; Site: right forearm; rr5 23:00 Follow up: Response: No adverse reaction; Marked relief of symptoms rr5 21:27 Drug: Ativan 1 mg Route: IVP; Site: right forearm; rr5 23:00 Follow up: Response: No adverse reaction; Marked relief of symptoms rr5 Intake: 21:00 IV: 1000ml; Total: 1000ml. rr5 Output: 19:35 Urine: 450ml (Voided); Total: 450ml. rr5 22:55 Urine: 900ml (Voided); Total: 1350ml. rr5 Outcome: 20:13 Discharge ordered by . pm1 23:00 Discharged to home via wheelchair. rr5 23:00 Condition: stable 23:00 Discharge instructions given to patient, Instructed on discharge instructions, follow up and referral plans. Demonstrated understanding of instructions, follow-up care. 23:10 Patient left the ED. rr5 Signatures: Dispatcher [employer] EDRosmery Pearson Amelia as Attema, Lee, RN RN la1 Josr Winston, [place]AKOTA [employer] TECHNICIAN pm1 Jigar Salgado RN RN rr5
[2019-01-10] MEDS ORDERED: DIPHENHYDRAMINE 50 MG/ML VIAL ONE (21:26)
[2019-01-10] MEDS ORDERED: LORazepam 2 MG/ML VIAL ONE (21:26)
== END 2019-01-10 23:10 | disposition home or self-care (01) ==
LOC: ER 18:40
DX: R10.9 Unspecified abdominal pain (principal); F41.9 Anxiety disorder, unspecified; E03.9 Hypothyroidism, unspecified
CPT/HCPCS: 96361; 85025; 80048; 36415; 80076; 83690; 76377; 74176; 96375; 96374; 99284; J7030; 81003; 81015

== ENCOUNTER 2019-04-17 16:55 | Emergency (ER) | payer OTHER ==
--- OUTSIDE RECORDS SUMMARY | 2019-04-17 16:59 | XMS REPORT | Clinical Summary ---
:1965 Author Organization [facility] Address [address] [place] [address] Care Team Providers Name Role Phone Starr [...] Overview: Added automatically from request for surgery [id number] Weight loss 05/19/2018 Overview: Added automatically from request for surgery [id number] Encounters Date Type Specialty Care Team Description 08/23/2018 [facility] General Internal Freya Paul Abdominal pain, unspecified abdominal location (Primary Dx); - Encounter Medicine MD Hkaan Generalized abdominal pain; 08/26/2018 Weight loss; Chest pain in adult; Somatoform disorder; Constipation, unspecified constipation type 08/22/2018 Intake Access N/A 08/01/2018 [facility] Radiology Samaria Davis No Show Encounter MD José Miguel 08/01/2018 [facility] Cardiology La Naylor Chest pain in adult [...] pain MD Lyons, Dung Maya MD after 04/16/2018 Family History Medical History Relation Name Comments [...] Taken Blood Pressure 128/77 08/26/2018 5:25 PM HEDIS SPECIALIST Pulse 46 08/26/2018 5:25 PM HEDIS SPECIALIST Temperature 35.7 C (96.3 F) 08/26/2018 5:25 PM HEDIS SPECIALIST Respiratory Rate 17 08/26/2018 5:25 PM HEDIS SPECIALIST Oxygen Saturation 100% 08/26/2018 5:25 PM HEDIS SPECIALIST Inhaled Oxygen Concentration - - Weight 70.9 kg (156 lb 6.4 oz) 08/23/2018 3:00 AM HEDIS SPECIALIST Height 188 cm (6' 2") 08/23/2018 3:00 AM HEDIS SPECIALIST Body Mass Index 20.08 08/23/2018 3:00 AM HEDIS SPECIALIST Plan of Treatment Health Maintenance Due Date Last Done Comments COLONOSCOPY SCREENING 2014 SHINGLES VACCINES (#1) 2014 INFLUENZA VACCINE 04/16/2019 Implants Implanted Type Area System Safety Engineer Device Identifier Shelf Expiration Model / Date Serial / Lot Titinuim C4/ C7 Procedures Procedure Name Priority Date/Time Associated Comments Diagnosis FL UGI W AIR HD BA AND SMALL Routine 08/26/2018 Results for BOWEL 4:55 PM HEDIS SPECIALIST this procedure are in the results section. PROTHROMBIN TIME WITH INR Routine 08/26/2018 Results for 5:30 AM HEDIS SPECIALIST this procedure are in the results section. HC COMPLETE BLD COUNT W/AUTO Routine 08/26/2018 Results for DIFF 5:00 AM HEDIS SPECIALIST this procedure are in the results section. ESTIMATED GFR Routine 08/26/2018 Results for 4:00 AM HEDIS SPECIALIST this procedure are in the results section. COMPREHENSIVE METABOLIC PANEL Routine 08/26/2018 Results for 4:00 AM HEDIS SPECIALIST this procedure are in the results section. XR LUMBAR SPINE 2 OR 3 VW STAT 08/24/2018 Results for 2:51 PM HEDIS SPECIALIST this procedure are in the results section. HC COMPLETE BLD COUNT W/AUTO Routine 08/24/2018 Results for DIFF 6:06 AM HEDIS SPECIALIST this procedure are in the results section. AMMONIA LEVEL Routine 08/24/2018 Results for 6:06 AM HEDIS SPECIALIST this procedure are in the results section. PHOSPHORUS LEVEL Routine 08/24/2018 Results for 4:00 AM HEDIS SPECIALIST this procedure are in the results section. IONIZED CALCIUM Routine 08/24/2018 Results for 4:00 AM HEDIS SPECIALIST this procedure are in the results section. ESTIMATED GFR Routine 08/24/2018 Results for 4:00 AM HEDIS SPECIALIST this procedure are in the results section. MAGNESIUM LEVEL Routine 08/24/2018 Results for 4:00 AM HEDIS SPECIALIST this procedure are in the results section. COMPREHENSIVE METABOLIC PANEL Routine 08/24/2018 Results for 4:00 AM HEDIS SPECIALIST this procedure are in the results section. SEDIMENTATION RATE Routine 08/23/2018 Results for 4:45 PM HEDIS SPECIALIST this procedure are in the results section. LUPUS ANTICOAGULANT PANEL Routine 08/23/2018 Results for 4:45 PM HEDIS SPECIALIST this procedure are in the results section. CARCINOEMBRYONIC ANTIGEN (CEA) Routine 08/23/2018 Results for 3:46 PM HEDIS SPECIALIST this procedure are in the results section. PROSTATE SPECIFIC ANTIGEN Routine 08/23/2018 Results for 3:46 PM HEDIS SPECIALIST this procedure are in the results section. HIV AG/AB COMBINATION Routine 08/23/2018 Results for 3:46 PM HEDIS SPECIALIST this procedure are in the results section. RHEUMATOID FACTOR Routine 08/23/2018 Results for 3:46 PM HEDIS SPECIALIST this procedure are in the results section. TROPONIN Routine 08/23/2018 Results for 3:46 PM HEDIS SPECIALIST this procedure are in the results section. CANCER ANTIGEN 19-9 Routine 08/23/2018 Results for 3:46 PM HEDIS SPECIALIST this procedure are in the results section. ALPHA FETOPROTEIN Routine 08/23/2018 Results for 3:46 PM HEDIS SPECIALIST this procedure are in the results section. RANDELL Routine 08/23/2018 Results for 3:46 PM HEDIS SPECIALIST this procedure are in the results section. DNA AB SCREEN Routine 08/23/2018 Results for 3:46 PM HEDIS SPECIALIST this procedure are in the results section. C-REACTIVE PROTEIN Routine 08/23/2018 Results for 3:46 PM HEDIS SPECIALIST this procedure are in the results section. URINALYSIS SCREEN AND Routine 08/23/2018 Results for MICROSCOPY, WITH REFLEX TO 7:45 AM HEDIS SPECIALIST this procedure CULTURE are in the results section. URINE CULTURE Routine 08/23/2018 Results for 7:45 AM HEDIS SPECIALIST this procedure are in the results section. THYROID STIMULATING HORMONE Routine 08/23/2018 Results for 5:50 AM HEDIS SPECIALIST this procedure are in the results section. ESTIMATED GFR Routine 08/23/2018 Results for 5:50 AM HEDIS SPECIALIST this procedure are in the results section. LIPASE LEVEL Routine 08/23/2018 Results for 5:50 AM HEDIS SPECIALIST this procedure are in the results section. B NATRIURETIC PEPTIDE Routine 08/23/2018 Results for 5:50 AM HEDIS SPECIALIST this procedure are in the results section. AMYLASE LEVEL Routine 08/23/2018 Results for 5:50 AM HEDIS SPECIALIST this procedure are in the results section. COMPREHENSIVE METABOLIC PANEL Routine 08/23/2018 Results for 5:50 AM HEDIS SPECIALIST this procedure are in the results section. PARTIAL THROMBOPLASTIN TIME Routine 08/23/2018 Results for (PTT) 5:50 AM HEDIS SPECIALIST this procedure are in the results section. PROTHROMBIN TIME WITH INR Routine 08/23/2018 Results for 5:50 AM HEDIS SPECIALIST this procedure are in the results section. HC COMPLETE BLD COUNT W/AUTO Routine 08/23/2018 Results for DIFF 5:50 AM HEDIS SPECIALIST this procedure are in the results section. HEPATITIS ACUTE PANEL Routine 08/23/2018 Results for 3:28 AM HEDIS SPECIALIST this procedure are in the results section. TROPONIN Timed 08/23/2018 Results for 3:23 AM HEDIS SPECIALIST this procedure are in the results section. ESTIMATED GFR Routine 08/05/2018 Results for 5:20 AM HEDIS SPECIALIST this procedure are in the results section. HC COMPLETE BLD COUNT W/AUTO Routine 08/05/2018 Results for DIFF 5:20 AM HEDIS SPECIALIST this procedure are in the results section. COMPREHENSIVE METABOLIC PANEL Routine 08/05/2018 Results for 5:20 AM HEDIS SPECIALIST this procedure are in the results section. IR TRANSJUGULAR LIVER BIOPSY Routine 08/04/2018 Results for 6:04 PM HEDIS SPECIALIST this procedure are in the results section. SURGICAL PATHOLOGY REQUEST Routine 08/04/2018 Results for 9:18 AM HEDIS SPECIALIST this procedure are in the results section. ESTIMATED GFR Routine 08/04/2018 Results for 3:45 AM HEDIS SPECIALIST this procedure are in the results section. HC COMPLETE BLD COUNT W/AUTO Routine 08/04/2018 Results for DIFF 3:45 AM HEDIS SPECIALIST this procedure are in the results section. COMPREHENSIVE METABOLIC PANEL Routine 08/04/2018 Results for 3:45 AM HEDIS SPECIALIST this procedure are in the results section. ESTIMATED GFR Routine 08/03/2018 Results for 5:00 AM HEDIS SPECIALIST this procedure are in the results section. HC COMPLETE BLD COUNT W/AUTO Routine 08/03/2018 Results for DIFF 5:00 AM HEDIS SPECIALIST this procedure are in the results section. COMPREHENSIVE METABOLIC PANEL Routine 08/03/2018 Results for 5:00 AM HEDIS SPECIALIST this procedure are in the results section. NM MYOCARDIAL PERFUSION STRESS Routine 08/02/2018 Results for REST 1 DAY 3:17 PM HEDIS SPECIALIST this procedure are in the results section. CV STRESS TEST NUCLEAR CARDIO Routine 08/02/2018 Results for 3:17 PM HEDIS SPECIALIST this procedure are in the results section. ECG 12-LEAD Routine 08/02/2018 8:15 AM HEDIS SPECIALIST ECHOCARDIOGRAM 2D COMPLETE W Routine 08/02/2018 Results for MMODE SPECTRAL COLOR DOPPLER 8:00 AM HEDIS SPECIALIST this procedure ([id number]) are in the results section. ESTIMATED GFR Routine 08/02/2018 Results for 4:50 AM HEDIS SPECIALIST this procedure are in the results section. HEMOGLOBIN A1C Routine 08/02/2018 Results for 4:50 AM HEDIS SPECIALIST this procedure are in the results section. LIPID PANEL Routine 08/02/2018 Results for 4:50 AM HEDIS SPECIALIST this procedure are in the results section. THYROID STIMULATING HORMONE Routine 08/02/2018 Results for 4:50 AM HEDIS SPECIALIST this procedure are in the results section. HC COMPLETE BLD COUNT W/AUTO Routine 08/02/2018 Results for DIFF 4:50 AM HEDIS SPECIALIST this procedure are in the results section. COMPREHENSIVE METABOLIC PANEL Routine 08/02/2018 Results for 4:50 AM HEDIS SPECIALIST this procedure are in the results section. LACTIC ACID LEVEL, SEPSIS - NOW Timed 08/02/2018 Results for AND REPEAT 2X EVERY 3 HOURS 4:50 AM HEDIS SPECIALIST this procedure are in the results section. TROPONIN Timed 08/01/2018 Results for 9:26 PM HEDIS SPECIALIST this procedure are in the results section. URINE DRUGS OF ABUSE SCREEN Routine 08/01/2018 Results for 6:00 PM HEDIS SPECIALIST this procedure are in the results section. T4, FREE Routine 08/01/2018 Results for 6:00 PM HEDIS SPECIALIST this procedure are in the results section. CT CHEST WO CONTRAST STAT 08/01/2018 Results for 5:24 PM HEDIS SPECIALIST this procedure are in the results section. NM LUNG VENTILATION PERFUSION STAT 08/01/2018 Results for 4:39 PM HEDIS SPECIALIST this procedure are in the results section. ECG 12-LEAD STAT 08/01/2018 Results for 2:17 PM HEDIS SPECIALIST this procedure are in the results section. ECG ED PRELIMINARY Routine 08/01/2018 Results for INTERPRETATION 11:54 AM HEDIS SPECIALIST this procedure are in the results section. ECG ED PRELIMINARY Routine 08/01/2018 Results for INTERPRETATION 11:54 AM HEDIS SPECIALIST this procedure are in the results section. MAGNESIUM LEVEL STAT 08/01/2018 Results for 11:45 AM HEDIS SPECIALIST this procedure are in the results section. PHOSPHORUS LEVEL STAT 08/01/2018 Results for 11:45 AM HEDIS SPECIALIST this procedure are in the results section. LACTIC ACID LEVEL, SEPSIS - NOW STAT 08/01/2018 Results for AND REPEAT 2X EVERY 3 HOURS 11:45 AM HEDIS SPECIALIST this procedure are in the results section. LIPASE LEVEL STAT 08/01/2018 Results for 11:45 AM HEDIS SPECIALIST this procedure are in the results section. AMYLASE LEVEL STAT 08/01/2018 Results for 11:45 AM HEDIS SPECIALIST this procedure are in the results section. PARTIAL THROMBOPLASTIN TIME STAT 08/01/2018 Results for (PTT) 11:45 AM HEDIS SPECIALIST this procedure are in the results section. PROTHROMBIN TIME WITH INR STAT 08/01/2018 Results for 11:45 AM HEDIS SPECIALIST this procedure are in the results section. TYPE AND SCREEN Routine 08/01/2018 Results for 11:45 AM HEDIS SPECIALIST this procedure are in the results section. ESTIMATED GFR STAT 08/01/2018 Results for 11:45 AM HEDIS SPECIALIST this procedure are in the results section. B NATRIURETIC PEPTIDE STAT 08/01/2018 Results for 11:45 AM HEDIS SPECIALIST this procedure are in the results section. TROPONIN STAT 08/01/2018 Results for 11:45 AM HEDIS SPECIALIST this procedure are in the results section. COMPREHENSIVE METABOLIC PANEL STAT 08/01/2018 Results for 11:45 AM HEDIS SPECIALIST this procedure are in the results section. HC COMPLETE BLD COUNT W/AUTO STAT 08/01/2018 Results for DIFF 11:45 AM HEDIS SPECIALIST this procedure are in the results section. XR CHEST 1 VW PORTABLE STAT 08/01/2018 Results for 11:29 AM HEDIS SPECIALIST this procedure are in the results section. ECG 12-LEAD STAT 08/01/2018 Results for 10:45 AM HEDIS SPECIALIST this procedure are in the results section. [...] procedure are in the results section. after 04/16/2018 Results FL UGI w Air HD BA and Small Bowel (08/26/2018 4:55 PM HEDIS SPECIALIST) Specimen Narrative Performed At EXAMINATION:FL UGI W AIR [...] gastrointestinal fluoroscopic examination and small bowel follow-through. [facility]-[id number] Procedure Note [facility], Radiology Results Incoming - 08/26/2018 5:56 PM HEDIS SPECIALIST EXAMINATION: FL UGI W AIR HD BA [...] gastrointestinal fluoroscopic examination and small bowel follow-through. [facility]-[id number] Performing Organization Address City/State/Zipcode Phone Number [facility] [address] [place] [address] Prothrombin time with INR (08/26/2018 5:30 AM HEDIS SPECIALIST)Only the most recent of3 resultswithin the time period is included. Prothrombin time 15.5 (H) 11.5 - 14.5 [facility] INR 1.3 [facility] JOHN Comment: [facility] The International Normalized Ratio (INR) is a therapeutic HOSPITAL monitoring tool for patients who are stable on oral anticoagulant therapy. An INR of 2.0-3.0 is suggested for deep vein thrombosis/pulmonary embolism. Specimen Blood Performing Organization Address City/State/Zipcode Phone Number [facility] DEPARTMENT OF PATHOLOGY AND [address] [place] [address] GENOMIC MEDICINE [facility] [address] [place] [address] CBC with platelet and differential (08/26/2018 5:00 AM HEDIS SPECIALIST)Only the most recent of11 resultswithin the time period is included. WBC 4.55 4.50 - 11.[address] [facility] k/uL [facility] RBC 3.90 (L) 4.40 - 6.00 [facility] HGB 12.6 (L) 14.0 - 18.0 [facility] HCT 36.0 (L) 41.0 - 51.0 % [facility] MCV 92.3 82.0 - 100.0 [facility] MCH 32.3 27.0 - 34.0 pg [facility] MCHC 35.0 31.0 - 37.[address] [facility] - SD 43.4 37.0 - 55.0 fL [facility] MPV 11.2 8.8 - 13.2 fL [facility] Platelet count 204 150 - 400 k/uL [facility] Nucleated RBC 0.00 /100 WBC [facility] Neutrophils 47.4 39.0 - 69.0 % [facility] Lymphocytes 43.1 25.0 - 45.0 % [facility] Monocytes 6.2 0.0 - 10.0 % [facility] Eosinophils 2.4 0.0 - 5.0 % [facility] Basophils 0.7 0.0 - 1.0 % [facility] Immature granulocytes 0.2Comment: 0.0 - 1.0 % [facility] "Immature HOSPITAL granulocytes" (promyelocytes , myelocytes, metamyelocytes ) Specimen Blood Performing Organization Address City/State/Zipcode Phone Number [facility] DEPARTMENT OF PATHOLOGY AND [address], [place] [phone] [place] [phone] Estimated GFR (08/26/2018 4:00 AM HEDIS SPECIALIST)Only the most recent of8 resultswithin the time period is included. [facility] Estimated GFR >=90 mL/min/1.[address] [facility] Comment: [address] CatergoryUnitsInterpretation G1 >=90 Normal or high G2 60-89Mildly decreased [id number] to moderately decreased [id number] to severely decreased G4 15-29Severely decreased G5 <15Kidney failure The eGFR was calculated using the Chronic Kidney Disease Epidemiology Collaboration (CKD-EPI) equation. Interpretation is based on recommendations of the National Kidney Foundation-Kidney Disease Outcomes Quality Initiative (NKF-KDOQI) published in 2014. Specimen Plasma specimen Performing Organization Address City/State/Zipcode Phone Number [facility] DEPARTMENT OF PATHOLOGY AND [address], [place] [address] [place] [phone] Comprehensive metabolic panel (08/26/2018 4:00 AM HEDIS SPECIALIST)Only the most recent of10 resultswithin the time period is included. [facility] Sodium 136 135 - [address] [facility] mEq/L [facility] Potassium 3.9 3.5 - 5.[address] [facility] mEq/L [facility] Chloride 102 98 - 112 mEq/L [facility] CO2 24 24 - 31 mEq/L [facility] Anion gap 10@ANIO 7 - 15 mEq/L [facility] BUN 4 (L) 6 - 20 mg/dL [facility] Creatinine 0.65 (L) 0.70 - 1.[address] [facility] mg/dL HOSPITAL Glucose 78 65 - 99 mg/dL [facility] Calcium 8.4 8.3 - 10.[address] [facility] mg/dL [facility] Protein 5.6 (L) 6.3 - 8.3 g/dL [facility] Comment: HOSPITAL Cardinal 4.6-7.0 g/dL 1 week 4.4-7.6 g/dL 7 months-1year5.1-7.3 g/dL 1-2 years5.6-7.5 g/dL >3 years6.0-8.0 g/dL 18-150 6.3-8.3 g/dL Albumin 3.0 (L) 3.5 - 5.0 g/dL [facility] A/G ratio 1.2 0.7 - 3.8 [facility] Alkaline phosphatase 49 40 - 129 U/L [facility] AST 37 10 - 50 U/L [facility] ALT 84 (H) 5 - 50 U/L [facility] Total bilirubin 0.5 0.0 - 1.[address] [facility] mg/dL HOSPITAL Specimen Plasma specimen Performing Organization Address City/State/Zipcode Phone Number [facility] DEPARTMENT OF PATHOLOGY AND [address] [place] [phone] GENOMIC MEDICINE [address] [address] XR Lumbar Spine 2 Or 3 Vw (08/24/2018 2:51 PM HEDIS SPECIALIST) Specimen Narrative Performed At PROCEDURE:XR LUMBAR SPINE 2 OR 3 VW RADIANT CLINICAL HISTORY:Back [id number] conservative txpersistent sx COMPARISON:None. TECHNIQUE: Views of [...] over S1 measuring less than 3 mm. [id number] Procedure Note Interface, Radiology Results Incoming - 08/24/2018 3:06 PM HEDIS SPECIALIST PROCEDURE: XR LUMBAR SPINE 2 OR 3 [...] over S1 measuring less than 3 mm. [id number] Performing Organization Address City/[facility]/Zipcode Phone Number [address] [address] Ammonia level (08/24/2018 6:06 AM HEDIS SPECIALIST) Ammonia 30 16 - 60 umol/L [facility] Specimen Blood Performing Organization Address [facility] Phone Number [facility] DEPARTMENT OF PATHOLOGY AND [address] [place] [phone] Phosphorus level (08/24/2018 4:00 AM HEDIS SPECIALIST)Only the most recent of4 resultswithin the time period is included. Phosphorus 3.5 2.4 - 4.5 mg/dL [facility] Specimen Plasma specimen Performing Organization Address [facility] Phone Number [facility] DEPARTMENT OF PATHOLOGY AND [address] [place] [phone] [place] [phone] Magnesium level (08/24/2018 4:00 AM HEDIS SPECIALIST)Only the most recent of4 resultswithin the time period is included. Magnesium 1.7 1.6 - 2.6 mg/dL [facility] Specimen Plasma specimen Performing Organization Address [facility] Services[facility] Phone Number [facility] DEPARTMENT OF PATHOLOGY AND [address] [place] [phone] Ionized calcium (08/24/2018 4:00 AM HEDIS SPECIALIST) pH 7.47 [facility] Ionized calcium 1.09 (L) 1.11 - 1.[address] [facility] mmol/L [facility] Specimen Plasma specimen Performing Organization Address [facility] Services[facility] Phone Number [facility] DEPARTMENT OF PATHOLOGY AND [address] [place] [phone] [address] Lupus anticoagulant panel (08/23/2018 4:45 PM HEDIS SPECIALIST) Prothrombin time 14.8 (H) 11.5 - 14.5 [facility] INR 1.2 [facility] Comment: [facility] The International Normalized Ratio (INR) is a therapeutic HOSPITAL monitoring tool for patients who are stable on oral anticoagulant therapy. An INR of 2.0-3.0 is suggested for deep vein thrombosis/pulmonary embolism. PTT 33.7 23.0 - 36.0 [facility] Comment: [facility] PTT therapeutic range for unfractionated heparin is HOSPITAL 61.0-112.0 seconds which corresponds to Anti-Xa 0.3-0.7 U/ml. PTT lupus 34.6 27.0 - 38.0 [facility] anticoagulant Comment: [facility] Lupus anticoagulant (LA) panel consists of PT, PTT, PTT-LA, HOSPITAL and DRVVT. If the PTT-LA is above [...] diagnosis. DRVVT 25.6 (L) 29.0 - 46.0 [facility] Specimen Blood Performing Organization Address City/[facility]/Zipcode Phone Number [facility] DEPARTMENT OF PATHOLOGY AND [address] [place] [address] [facility] [address] [place] [phone] Sedimentation rate (08/23/2018 4:45 PM HEDIS SPECIALIST) Sedimentation rate 5 0 - 10 mm/hr [facility] Specimen Blood Performing Organization Address City/[facility]/Zipcode Phone Number [facility] DEPARTMENT OF PATHOLOGY AND [address] [place] [address] [address] HIV Ag/Ab combination (08/23/2018 3:46 PM HEDIS SPECIALIST) [facility] HIV Ag/Ab combination Non-reactive Non-reactive [facility] Specimen Performing Organization Address City/[facility] Services[facility] Phone Number [facility] DEPARTMENT OF PATHOLOGY AND [address] [place] [address] DNA Ab screen (08/23/2018 3:46 PM HEDIS SPECIALIST) [facility] DNA Ab screen Not Detected Not-Detected [facility] Specimen Blood Performing Organization Address [facility] Servicescode Phone Number [facility] DEPARTMENT OF PATHOLOGY AND [address] [place] [address] Cancer antigen 19-9 (08/23/2018 3:46 PM HEDIS SPECIALIST) [facility] CA 19-9 26 0 - 35 U/mL [facility] Comment: HOSPITAL The [employer] [place] 8000 CA19-9 immunoassay was used. Results obtained with different assay methods or kits should not be used interchangeably and may be different. Specimen Plasma specimen Performing Organization Address [facility] Phone Number [facility] DEPARTMENT OF PATHOLOGY AND [address] [place] [address] Troponin (08/23/2018 3:46 PM HEDIS SPECIALIST)Only the most recent of6 resultswithin the time period is included. [facility] Troponin <0.30 0.00 - 0.[address] [facility] Comment: ng/mL HOSPITAL 0.30 - 1.49 ng/mlMay indicate increased risk of acute coronary syndrome. >=1.5 ng/mlConsistent with acute myocardial infarction. The diagnostic value of a single normal or non-diagnostic result is questionable.Serial samples at 2-6 hour intervals are required to rule out acute myocardial injury. Specimen Plasma specimen Performing Organization Address City/[facility] Services[facility] Phone Number [facility] DEPARTMENT OF PATHOLOGY AND [address] [place] [address] Alpha fetoprotein (08/23/2018 3:46 PM HEDIS SPECIALIST) [facility] Alpha fetoprotein 1.7 0.0 - 8.3 [facility] Comment: ng/mL [facility] The Luca 8000 AFP immunoassay was used. [facility] Results obtained with different assay methods or kits should not be used interchangeably and may be different. Specimen Serum Performing Organization Address City/[facility] Servicescode Phone Number [facility] DEPARTMENT OF PATHOLOGY AND [address] [place] [phone] Rheumatoid factor (08/23/2018 3:46 PM HEDIS SPECIALIST) [facility] Rheumatoid factor 13 0 - 13 IU/mL [facility] Specimen Plasma specimen Performing Organization Address City/[facility] Servicescode Phone Number [facility] DEPARTMENT OF PATHOLOGY AND [address] [place] [phone] C-reactive protein (08/23/2018 3:46 PM HEDIS SPECIALIST) [facility] CRP <0.30 0.00 - 0.50 mg/dL [facility] Specimen Plasma specimen Performing Organization Address City/[facility] Phone Number [facility] DEPARTMENT OF PATHOLOGY AND [address] [place] [phone] RANDELL (08/23/2018 3:46 PM HEDIS SPECIALIST) [facility] RANDELL screen Negative Negative [facility] Specimen Blood Performing Organization Address [facility] Phone Number [facility] DEPARTMENT OF PATHOLOGY AND [address] [place] [phone] Prostate specific antigen (08/23/2018 3:46 PM HEDIS SPECIALIST) [facility] PSA 1.0 0.0 - 4.[address] [facility] Comment: ng/mL [facility] The LUCA 8000 PSA immunoassay was used. Results obtained with different assay methods or kits should not be used interchangeably and may be different. Specimen Plasma specimen Performing Organization Address City/[facility] Servicescode Phone Number [facility] DEPARTMENT OF PATHOLOGY AND [address] [place] [phone] Carcinoembryonic antigen (CEA) (08/23/2018 3:46 PM HEDIS SPECIALIST) [facility] CEA 3.2 0.0 - 3.[address] [facility] Comment: ng/mL HOSPITAL Reference range for heavy smokers:0.0 - 5.5 ng/mL The [facility]UNTER Luca 8000 CEA immunoassay was used. Results obtained with different assay methods or kits should not be used interchangeably and may be different. Specimen Serum Performing Organization Address City/[facility] Servicescode Phone Number [facility] DEPARTMENT OF PATHOLOGY AND [address] [place] [address] Urinalysis screen and microscopy, with reflex to culture (08/23/2018 7:45 AM HEDIS SPECIALIST)Only the most recent of2 resultswithin the time period is included. Pathologist [facility] Specimen site Clean catch [facility] Color, UA Straw [facility] Appearance, UA Clear [facility] Specific gravity, 1.011 1.001 - 1.035 [facility] pH, UA 6.0 5.0 - 8.5 [facility] Protein, UA Negative Negative [facility] Glucose, UA Negative Negative [facility] Ketones, UA Negative Negative [facility] Bilirubin, UA Negative Negative [facility] Blood, UA Negative Negative [facility] Nitrite, UA Negative Negative [facility] Urobilinogen, UA FootnoteComment: <2.[address] [facility] Unable to report HOSPITAL Leukocyte Negative Negative [facility] esterase, HOSPITAL WBC, UA <1 0 - 1 /HPF [facility] RBC, UA None seen 0 - 5 /HPF [facility] Bacteria, UA None seen None seen [facility] Yeast, UA None seen [facility] Yeast with None seen [facility] pseudohyphae, HOSPITAL Specimen Urine Performing Organization Address City/[facility] Phone Number [facility] DEPARTMENT OF PATHOLOGY AND [address] [place] [address] Urine culture (08/23/2018 7:45 AM HEDIS SPECIALIST)Only the most recent of2 resultswithin the time period is included. [facility] Urine culture SEE COMMENTComment: [facility] Bacteriuria screen HOSPITAL negative. Specimen Performing Organization Address City/[facility] Servicescode Phone Number [facility] DEPARTMENT OF PATHOLOGY AND [address] [place] [address] Partial thromboplastin time, activated (08/23/2018 5:50 AM HEDIS SPECIALIST)Only the most recent of2 resultswithin the time period is included. PTT 33.1 23.0 - 36.[address] [facility] Comment: [facility] PTT therapeutic range for unfractionated heparin is 61.0-112.0 seconds which corresponds to Anti-Xa 0.3-0.7 U/ml. Specimen Blood Performing Organization Address City/[facility] Servicescomd Phone Number [facility] DEPARTMENT OF PATHOLOGY AND [address] [place] [address] Thyroid stimulating hormone (08/23/2018 5:50 AM HEDIS SPECIALIST)Only the most recent of3 resultswithin the time period is included. TSH 4.21 (H) 0.27 - 4.20 uIU/mL [facility] Specimen Plasma specimen Performing Organization Address [facility] Phone Number [facility] DEPARTMENT OF PATHOLOGY AND [address] [place] [address] B natriuretic peptide (08/23/2018 5:50 AM HEDIS SPECIALIST)Only the most recent of2 resultswithin the time period is included. BNP 81 0 - 100 pg/mL [facility] Specimen Blood Performing Organization Address City/[facility] Phone Number [facility] DEPARTMENT OF PATHOLOGY AND [address] [place] [address] Lipase level (08/23/2018 5:50 AM HEDIS SPECIALIST)Only the most recent of4 resultswithin the time period is included. Lipase 23 13 - 60 U/L [facility] Specimen Plasma specimen Performing Organization Address [facility] Phone Number [facility] DEPARTMENT OF PATHOLOGY AND [address] [place] [address] Amylase level (08/23/2018 5:50 AM HEDIS SPECIALIST)Only the most recent of2 resultswithin the time period is included. Amylase 40 28 - 100 U/L [facility] Specimen Plasma specimen Performing Organization Address City/[facility]/Zipcode Phone Number [facility] DEPARTMENT OF PATHOLOGY AND [address] [place] [address] [address] Hepatitis acute panel (08/23/2018 3:28 AM HEDIS SPECIALIST) Hepatitis A IgM Non-reactive Non-reactive [facility] Hepatitis B core Non-reactive Non-reactive [facility] Hepatitis B surface Non-reactive Non-reactive [facility] Hepatitis C Ab Non-reactive Non-reactive [facility] Specimen Serum Performing Organization Address City/[facility] Servicescode Phone Number [facility] DEPARTMENT OF PATHOLOGY AND [address] [place] [phone] [address] IR Transjugular Liver Biopsy (08/04/2018 6:04 PM HEDIS SPECIALIST) Specimen Narrative Performed At Performing Radiologist TERI Prasad [...] into the inferior vena cava. A long 9-Dominican vascular sheath was exchanged over the guidewire [...] liver biopsy system was advanced through the 9-Dominican vascular sheath, and multiple 18-gauge core liver biopsy specimens were obtained.These were then placed in formalin and submitted to pathology. The directional catheter was then reintroduced and pressure measurements were then obtained in a pullback fashion. The 9-Dominican vascular sheath was then removed from the [...] biopsy with pressure measurements as described above. [facility]-[id number] Procedure Note [facility], Radiology Results Incoming - 08/04/2018 6:09 PM HEDIS SPECIALIST Performing Radiologist John Prasad MD Assistants None [...] into the inferior vena cava. A long 9-Dominican vascular sheath was exchanged over the guidewire [...] liver biopsy system was advanced through the 9-Dominican vascular sheath, and multiple 18-gauge core liver biopsy specimens were obtained. These were then placed in formalin and submitted to pathology. The directional catheter was then reintroduced and pressure measurements were then obtained in a pullback fashion. The 9-Dominican vascular sheath was then removed from the [...] biopsy with pressure measurements as described above. [facility]-[id number] Performing Organization Address City/[facility] Servicescode Phone Number [facility] [address] [place] [address] Surgical pathology request (08/04/2018 9:18 AM HEDIS SPECIALIST)Only the most recent of2 resultswithin the time period is included. Pathologist [facility] DEPARTMENT OF PATHOLOGY AND GENOMIC MEDICINE Surgical pathology See link below [facility] DEPARTMENT OF report for PDF Lab PATHOLOGY AND Report GENOMIC MEDICINE Result status This is Final [facility] DEPARTMENT OF Report for PATHOLOGY AND [id number] GENOMIC MEDICINE Specimen Performing Organization Address City/[facility]/Zipcode Phone Number [facility] DEPARTMENT OF PATHOLOGY AND [address] [place] [address] [employer] MEDICINE Cv ecg exercise stress (no imaging) (08/02/2018 3:17 PM HEDIS SPECIALIST) Resting HR 54 [facility] M[facility] Resting BP 110 [facility] Peak MET Achieved 1.0 [facility] Protocol Name REGADENO [facility] Time in Exercise 00:01:00 [facility] Phase Max Systolic BP 117 [facility] Max Diastolic BP 72 [facility] Max Heart Rate 77 [facility] Max Predicted Heart 166 [facility] M[facility] Rate Target HR Formula (220 - Age)*100% [facility] Test Indication chest pain [facility] M[facility] Stress Test -Waveform interpreted [facility] Impression in report associated with image study. No interpretation is provided as part of this Stress ECG report.-Electronically Signed By Tejas WHALEN, Pollo García ([id number]), photograph editor Leeanne Espinoza ([id number]) on 08/02/2018 2:17:57 PM Target HR 166.[address] [facility] Specimen Narrative Performed At Performing Organization Address City/State/Zipcode Phone Number [facility] [address] [place] [address] Myocardial perfusion (08/02/2018 3:17 PM HEDIS SPECIALIST) Specimen Narrative Performed At [facility] Nuclear Cardiology and Cardiac CT [address] [address] Myocardial Perfusion Imaging Report Stress ECG tracings are available in MUSE, EPIC and CV Web All ECG interpretations are included in this report Pat.Name:HEAD, POLLO MPat.ID:[id number] .Date: 08/02/2018Refer.MD:ROBERTA PAUL MD Exam Time: 9:30:00 AM Study Type:Myocardial Perfusion Imaging Height:74inBSA: 1.98 m2 DOBAge:1965,53Y Sex: MALE BP:110/71HR: 52 bpm HCT: 37.7 % Nuclear Tech:Jose Guy CNMT, SYBIL [place], ARRT (CT) Room:[address] Event ID: [id number] Order ID:[id number] Reason for Study:Chest pain, unspecified* History / [...] Radiology Results In - 08/02/2018 4:[address] [facility] Nuclear Cardiology and Cardiac CT [address] [place] [address] Myocardial Perfusion Imaging Report Stress ECG tracings are available in [place] [employer], [employer] and [employer] Web All ECG interpretations are included in this report Keshia.Name: HEAD, POLLO Schmitt.ID: [id number] .Date: 08/02/2018 Refer.MD: ROBERTA PAUL MD Exam Time: 9:30:00 AM Study Type:Myocardial Perfusion Imaging Height: 74in BSA: 1.98 m2 Age: 7 1965,53Y Sex: MALE BP: 110/71 HR: 52 bpm HCT: 37.7 % Nuclear Tech:Jose Guy CNMT, SYBIL [place], ARRT (CT) Room: [address] Nuclear Event ID:[id number] Order ID: [id number] Reason for Study:Chest pain, unspecified* History / Clinical:Gastric Ulcers, Lyme Disease, Hep B, Cam- De Paz, Family Hx of CAD Procedures:Single Day Stress / Rest Risk Factors:Angina, Family history of cardiovascular disease Clinical Symptoms:Regadenoson Surgery: Serum K+ Date, 3.8 on 08/02/18/, Troponin I Date, 1)NEG x2 on 08/01/18/ 2)/ 3)/, BUN/Creatinine Date, 8/0.64 on 08/02/18/ Medications:Aspirin, Lovenox SUMMARY: SCINTIGRAPHIC RESULTS [...] MD Performing Organization Address City/State/Zipcode Phone Number [facility] [address] [place] [address] Echocardiogram complete w contrast and 3D if needed (08/02/2018 8:00 AM HEDIS SPECIALIST) Specimen Narrative Performed At [facility] Echocardiography Report [address]Name:POLLO RODRIGEZ.ID:[id number] .Date: 08/02/2018Refer.MD:ROBERTA PAUL MD Exam Time: 7:17:00 AMStudy Type:Routine Echo Height:74.02in Weight:160lb BSA: 1.98 m2 DOBAge:1965,53Y Sex: MALEBP:103/57 HR:49 bpmSonogrphr: Beatriz Ramos RDCS Pat. Stat.:Inpatient Room:[facility] Study Status:Final Echo Event ID:[id number] Order ID:[id number] Reason for Study:Chest pain Procedures:2D Echo, Colorflow [...] PA systolic pressure. MEASUREMENTS: 2D Parasternal [place] LVOT 2 cmLA Ds2.7 cm LVIDd5 cmIndex2.5 cm/m Ao An2.3 cm LVIDs3.6 cmAo Rtd 2.1 cm Index1.1 cm/m LV%fs 28 % LV Edtt435.6 g(122-174) IVSd 0.6 cmLVM Index 52.8 g/m2 LVPWd0.7 cmRWT0.3 RA Sng Plane RA Area 18 cm2(8.3-19.5) RA Vol62.3 ml Index31.5 ml/m RA LngAx 4.2 cm DOPPLER LVOT Stroke Vol LVOT 2 cmLVOT CO3.6 l/min LVOT TVI23.7 cmLVOT CI1.8 l/m/m2 LVOT Tm362 oekbBA44 bpm LVOT SV 74.4 ml Signed 08/02/2018 11:16 AM Sebastien Lopez MD Procedure Note Interface, Radiology Results In - 08/02/2018 11:[address] [facility] Echocardiography Report [address] [place] [address] Pat.Name: POLLO RODRIGEZ.ID: [id number] .Date: 08/02/2018 Refer.MD: ROBERTA PAUL MD Exam Time: 7:17:00 AM Study Type:Routine Echo Height: 74.02in Weight: 160lb BSA: 1.98 m2 Age: 6 1965,53Y Sex: MALE BP: 103/57 HR: 49 bpm Sonogrphr: Beatriz Ramos RDCS Pat. Stat.:Inpatient Room: [facility] Study Status:Final Echo Event ID:[id number] Order ID: [id number] Reason for Study:Chest pain Procedures:2D Echo, Colorflow [...] PA systolic pressure. MEASUREMENTS: 2D Parasternal [place] LVOT 2 cm LA Ds 2.7 cm [...] AM Sebastien Lopez MD Performing Organization Address [facility]/Zipcode Phone Number [facility] [address] [place] [address] Lactic acid level, SEPSIS - Now and repeat 2x every 3 hours (08/02/2018 4:50 AM HEDIS SPECIALIST)Only the most recent of2 resultswithin the time period is included. Lactic acid 1.3 0.5 - 2.2 mmol/L [facility] Specimen Blood Performing Organization Address City/[facility]/Zipcode Phone Number [facility] DEPARTMENT OF PATHOLOGY AND [address] [place] [address] [address] [address] Hemoglobin A1c (08/02/2018 4:50 AM HEDIS SPECIALIST) Hemoglobin A1C 5.2 4.0 - 5.6 % [facility] Comment: HOSPITAL HbA1c cutoffs for diagnosing diabetes: 4.0% - 5.6%=normal 5.7% - 6.4%=increased risk for diabetes (prediabetes) >=6.5%=diabetes Goals for glycemic control (ADA 2016) < 7.0%Target for non adults with diabetes. More or less stringent targets may be appropriate for individual patients. <7.5% Target for Children and adolescents with type 1 diabetes. Specimen Blood Performing Organization Address City/[facility] Services[facility] Phone Number [facility] DEPARTMENT OF PATHOLOGY AND [address] [place] [address] [address] Lipid panel (08/02/2018 4:50 AM HEDIS SPECIALIST) Cholesterol 94 <200 mg/dL [facility] Triglycerides 53 <150 mg/dL [facility] HDL cholesterol 30 (L) >40 mg/dL [facility] LDL cholesterol 63Comment: Result <100 mg/dL [facility] obtained by direct [facility] LDL measurement [facility] Lipid panel [facility] interpretation Comment: [facility] Total Cholesterol (mg/dL) [facility] <200 Desirable 278-833Qihbuqjnro-kwav >=240High Triglycerides (mg/dL) <150 Normal 186-992Inpdhiojly-kjjc 200-499High >=500Very high HDL Cholesterol (mg/dL) <40Low (male) <40Low (female) LDL Cholesterol (mg/dL) <100 Optimal 100-129Near or above optimal [phone]-kuhh 160-189High >=190Very high Risk Catergories that modify [...] mg/dL) Specimen Plasma specimen Performing Organization Address City/[facility]/Zipcode Phone Number [facility] DEPARTMENT OF PATHOLOGY AND [address] [place] [address] [address] Urine drugs of abuse screen (08/01/2018 6:00 PM HEDIS SPECIALIST)Only the most recent of2 resultswithin the time period is included. Amphetamine screen, Negative D[facility] JOHN urine [facility] Barbiturate screen, Negative [facility] JOHN urine [facility] Benzodiazepine Negative DUT[facility] JOHN screen, urine [facility] Cannabinoid screen, Negative [facility] JOHN urine [facility] Cocaine screen, urine Negative [facility] Methadone metabolite Negative DUTCH JOHN (EDDP), urine [facility] Opiates screen, urine Negative [facility] Oxycodone screen, Negative D[facility] JOHN urine [facility] Phencyclidine screen, Negative DUT[facility] JOHN urine [facility] Tricyclic screen, Negative [facility] urine Comment: [facility] Drug screen minimum concentration of detectability [facility] Xfcfueskjllb0799 ng/mL Barbiturates 200 ng/mL Wdvcovvysmdytle989 ng/mL Jqbggpf319 ng/mL Xjnhmuxll643 ng/mL Pddldau341 ng/mL Reyztxjcv015 ng/mL Phencyclidine 25 ng/mL Qdsepbknhcmm65 ng/mL Cuitakoqzr5640 ng/mL Negative test results indicates presumptive evidence of lack of clinically significant drug concentration in this urine specimen. Positive test results are presumptive evidence of clinically significant drug concentration in this urine specimen. Testing performed for medical purposes only. Specimen Urine Performing Organization Address City/[facility] Services[facility] Phone Number [facility] DEPARTMENT OF PATHOLOGY AND [address] [place] [address] T4, free (08/01/2018 6:00 PM HEDIS SPECIALIST) Pathologist [facility] T4, free 1.2 0.9 - 1.7 ng/dL [facility] Specimen Plasma specimen Performing Organization Address City/[facility] Services[facility] Phone Number [facility] DEPARTMENT OF PATHOLOGY AND [address] [place] [address] CT Chest Wo Contrast (08/01/2018 5:24 PM HEDIS SPECIALIST) Specimen Narrative Performed At EXAMINATION: CT CHEST WO [...] 5.4.2 cm cyst upper pole right kidney. [facility]-[id number] Procedure Note [facility], Radiology Results Incoming - 08/01/2018 6:00 PM HEDIS SPECIALIST EXAMINATION: CT CHEST WO CONTRAST CLINICAL HISTORY: [...] 4.2 cm cyst upper pole right kidney. [facility]-[id number] Performing Organization Address [facility] Phone Number [facility] [address] [place] [address] [place] Lung Ventilation Perfusion (08/01/2018 4:39 PM HEDIS SPECIALIST) Specimen Narrative Performed At CLINICAL HISTORY: PE suspectedintermediate probneg D-dimer RADIANT TECHNIQUE: The patient breathed 15-20 mCi of xenon-133 gas through a closed ventilation system while dynamic imaging of the lungs was performed in the posterior and anterior projections. The patient was then injected with 5 mCi of vyfdwnkhwl-89c-DIG intravenously, followed by imaging of the lungs in 8 projections. FINDINGS: Ventilation and perfusion are normal bilaterally. IMPRESSION: Normal VQ scan. [id number] Procedure Note Hm Interface, Radiology Results Incoming - 08/01/2018 5:04 PM HEDIS SPECIALIST CLINICAL HISTORY: PE suspected intermediate prob neg D-dimer TECHNIQUE: The patient breathed 15-20 mCi of xenon-133 gas through a closed ventilation system while dynamic imaging of the lungs was performed in the posterior and anterior projections. The patient was then injected with 5 mCi of ctvjtcysku-87u-TIF intravenously, followed by imaging of the lungs in 8 projections. FINDINGS: Ventilation and perfusion are normal bilaterally. IMPRESSION: Normal VQ scan. [facility]-[id number] Performing Organization Address [facility] Phone Number [facility] [address] [place] [address] ECG 12 lead (08/01/2018 2:17 PM HEDIS SPECIALIST)Only the most recent of3 resultswithin the time period is included. Ventricular rate 52 [facility] Atrial rate 52 [facility] FL interval 126 [facility] QRSD interval 94 [facility] QT interval 448 [facility] QTC interval 416 [facility] P axis 1 53 [facility] QRS axis 1 70 [facility] T wave axis 74 [facility] EKG impression Sinus [facility] bradycardia-Otherwise normal ECG-In automated comparison with ECG of 01-AUG-2018 10:45,-No significant change was found- Specimen Narrative Performed At Performing Organization Address City/[facility] Servicescode Phone Number [facility] M[facility] [address] [place] [address] ECG ED Preliminary Interpretation - Not an Order (08/01/2018 11:54 AM HEDIS SPECIALIST)Only the most recent of2 resultswithin the time period is included. Narrative Performed At La Naylor MD 08/01/20186:03 PM ECG ED Preliminary Interpretation - Not an Order Performed by: La Naylor MD Authorized by: La Naylor MD ECG reviewed by ED Physician in the absence of a security incident response engineer: yes Previous ECG: Previous ECG:Compared to current Similarity:No change (Earlier today, this is ECG 2) Interpretation: Interpretation: non-specific Rate: ECG rate:52 ECG rate assessment: bradycardic Rhythm: Rhythm: sinus bradycardia Ectopy: Ectopy: none QRS: QRS axis:Normal QRS intervals:Normal Conduction: Conduction: normal ST segments: ST segments:Normal T waves: T waves: normal Comments: ECG 2 at 1417. No ischemic changes Type and screen (08/01/2018 11:45 AM HEDIS SPECIALIST) ABO grouping A [facility] Rh type POS [facility] Antibody screen (gel) NEG [facility] Specimen Blood Performing Organization Address City/[facility] Phone Number [facility] DEPARTMENT OF PATHOLOGY AND [address] [place] [address] GENOMIC MEDICINE [place] [id number] [place] [address] XR Chest 1 Vw Portable (08/01/2018 11:29 AM HEDIS SPECIALIST) Specimen Narrative Performed At EXAMINATION:XR CHEST 1 VW PORTABLE [facility] CLINICAL HISTORY:Shortness of breath COMPARISON:08/17/2008 IMPRESSION: Heart and mediastinum are stable. Lungs are clear. Cervical spine surgery again seen. [facility]-[id number] Procedure Note Hm Interface, Radiology Results Incoming - 08/01/2018 11:44 AM HEDIS SPECIALIST EXAMINATION: XR CHEST 1 VW PORTABLE CLINICAL HISTORY: Shortness of breath COMPARISON: 08/17/2008 IMPRESSION: Heart and mediastinum are stable. Lungs are clear. Cervical spine surgery again seen. [facility]-[id number] Performing Organization Address City/State/Zipcode Phone Number [facility] [address] [place] [address] Estimated GFR (05/21/2018 5:31 AM CDT)Only the most recent of4 resultswithin the time period is included. GFR Non Af Amer >90 mL/min/1.73 [facility] DEPARTMENT OF m2 PATHOLOGY AND GENOMIC MEDICINE GFR Af Amer >90 mL/min/1.73 [facility] DEPARTMENT OF Comment: m2 PATHOLOGY AND Chronic kidney disease: <60 mL/min/1.73m2 GENOMIC MEDICINE Kidney failure: <15 mL/min/1.73m2 The estimated [...] Americans. Specimen Plasma specimen Performing Organization Address City/[facility] Services[facility] Phone Number [facility] DEPARTMENT OF PATHOLOGY [address] [place] [address] AND [facility] Basic metabolic panel (05/21/2018 5:31 AM CDT)Only the most recent of2 resultswithin the time period is included. Sodium 141 135 - 148 mEq/L [facility] DEPARTMENT OF PATHOLOGY AND GENOMIC MEDICINE Potassium 3.9 3.5 - 5.0 mEq/L [facility] DEPARTMENT OF PATHOLOGY AND GENOMIC MEDICINE Chloride 107 98 - 112 mEq/L [facility] DEPARTMENT OF PATHOLOGY AND GENOMIC MEDICINE CO2 26 24 - 31 mEq/L [facility] DEPARTMENT OF PATHOLOGY AND GENOMIC MEDICINE Anion gap 8@ANIO 7 - 15 mEq/L [facility] DEPARTMENT OF PATHOLOGY AND GENOMIC MEDICINE BUN 5 (L) 6 - 20 mg/dL [facility] DEPARTMENT OF PATHOLOGY AND GENOMIC MEDICINE Creatinine 0.6 (L) 0.7 - 1.2 mg/dL [facility] DEPARTMENT OF PATHOLOGY AND GENOMIC MEDICINE Glucose 91 65 - 99 mg/dL [facility] DEPARTMENT OF PATHOLOGY AND GENOMIC MEDICINE Calcium 8.6 8.3 - 10.2 mg/dL [facility] DEPARTMENT OF PATHOLOGY AND GENOMIC MEDICINE Specimen Plasma specimen Performing Organization Address City/State/Zipcode Phone Number [facility] DEPARTMENT OF PATHOLOGY [address] [place] [address] [place] [address] AND [employer] [facility] CT Abdomen Pelvis W Contrast (05/19/2018 6:15 PM CDT) Specimen Narrative Performed At EXAM: CT ABDOMEN PELVIS [...] 3.Mild prostatomegaly. 4.Additional chronic findings as listed. [facility]-[id number] Procedure Note Interface, Radiology Results [facility] - 05/19/2018 6:24 PM CDT EXAM: CT [...] prostatomegaly. 4. Additional chronic findings as listed. [facility]-[id number] Performing Organization Address City/State/Zipcode Phone Number [facility] [address] [place] [address] [place] Hepatic (05/19/2018 5:39 PM CDT) Specimen Narrative Performed At EXAMINATION:[facility] CLINICAL HISTORY:RUQ US ruq and epigastric pain [...] fluid collection in the gallbladder fossa. [facility]-[id number] Procedure Note Hm Interface, Radiology Results Incoming [...] fluid collection in the gallbladder fossa. [facility]-[id number] Performing Organization Address City/State/Zipcode Phone Number [facility] [address] [place] [address] after 04/16/2018 Insurance Payer Benefit Plan / Subscriber ID Effective Dates Phone Address Type Group MEDICARE MEDICARE PART A xxxxxxxxxx 2009-Present [place], [place] Medicare [place] B (Work) [phone] Advance Directives Patient has advance care planning documents, and code status on file. For more information, please contact:Guevara [address] [place] [address] Code Status Date Activated Date Inactivated Comments Full Code 05/19/2018 9:20 PM 05/21/2018 8:38 PM Code Status decision reached by: Patient
--- OUTSIDE RECORDS SUMMARY | 2019-04-17 16:59 | XMS REPORT ---
:1965 [facility] Address [address] [place] [address] Care Team Providers Name Role Phone Unavailable Unavailable Unavailable Problems This patient has no known problems. Allergies, Adverse Reactions, Alerts This patient has no known allergies or adverse reactions. Medications This patient has no known medications.
--- OUTSIDE RECORDS SUMMARY | 2019-04-17 16:59 | XMS REPORT | Summary of Care ---
:1965 Author Organization [facility] Address [address] [place] [address] Care Team Providers Name Role Phone Starr Barton Primary Care Provider Reason for Visit Reason Comments Chest Pain Shortness of Breath LIGHTHEADEDNESS Auth/Cert Status Reason Specialty Diagnoses / Referred By Referred To Procedures Contact Contact [facility] [address] [place] [address] [place] [address] Encounter Details Date Type Department Care Team Description 04/13/2019 Emergency [facility]-Emergency Yvon Mcdonald, Right upper quadrant abdominal pain (Primary Dx); Department PAC Chest pain, unspecified type [address] [place] [address] [place] [address] [facility] [address] [place] [address] Allergies Active Allergy Reactions Severity Noted Date Comments Carvedilol Rash 05/07/2017 Iodine Anaphylaxis 01/08/2019 IV and oral Pregabalin Anaphylaxis 05/07/2017 Opioids - Morphine Other - See comments 01/08/2019 Throat tightens, head Analogues pressure Peanut Butter Flavor Anaphylaxis 05/07/2017 documented as of this encounter (statuses as of 04/13/2019) Medications Medication Sig Dispensed Refills Start Date End Date Status LORazepam (ATIVAN) 0.5 Take 0.5 mg by 0 Active mg tablet mouth 2 (two) times daily. 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 Never 03/31/2019 How many drinks containing alcohol do you have on a typical Not asked day when you are drinking? How often do you have six or more drinks on one occasion? Not asked Sex Assigned at Date Recorded Not on file Job Start Date Occupation Industry Not on file Not on file Not on file Travel History Travel Start Travel End No recent travel history available. documented as of this encounter Last Filed Vital Signs Vital Sign Reading Time Taken Comments Blood Pressure 114/75 04/13/2019 9:00 PM CDT Pulse 53 04/13/2019 9:00 PM CDT Temperature 36.8 C (98.2 F) 04/13/2019 5:06 PM CDT Respiratory Rate 18 04/13/2019 9:00 PM CDT Oxygen Saturation 100% 04/13/2019 9:00 PM CDT Inhaled Oxygen Concentration - - Weight 68 kg (150 lb) 04/13/2019 5:06 PM CDT Height - - Body Mass Index 19.26 04/01/2019 7:00 AM CDT documented in this encounter Discharge Instructions Yvon Unger, PAC - 04/13/2019Follow up with PCP documented in this encounter Plan of Treatment Health Maintenance Due Date Last Done Comments HEPATITIS C (HCV) SCREEN 1965 DTaP,Tdap,and Td Vaccines (1 - 1983 Tdap) COLONOSCOPY 2014 Zoster Recombinant Vaccine 2014 (SHINGRIX) (1 of 2) INFLUENZA VACCINE 05/17/2019 PNEUMOCOCCAL 0-64 YEARS COMBINED Aged Out No longer eligible based on SERIES patient's age to complete this topic documented as of this encounter Procedures Procedure Name Priority Date/Time Associated Diagnosis Comments CBC WITH DIFFERENTIAL STAT 04/13/2019 7:46 Chest pain, Results for this PM CDT unspecified type procedure are in the results section. CBC WITH DIFF Routine 04/13/2019 7:46 Chest pain, Results for this PM CDT unspecified type procedure are in the results section. COMP. METABOLIC PANEL STAT 04/13/2019 6:13 Chest pain, Results for this (40352) PM CDT unspecified type procedure are in the results section. TROPONIN I STAT 04/13/2019 6:13 Chest pain, Results for this PM CDT unspecified type procedure are in the results section. MAGNESIUM STAT 04/13/2019 6:13 Chest pain, Results for this PM CDT unspecified type procedure are in the results section. EKG-12 LEAD Routine 04/13/2019 5:29 PM CDT NOTICE OF PRIVACY Routine 04/13/2019 4:45 PRACTICES PM CDT CONSENT/REFUSAL FOR Routine 04/13/2019 4:45 DIAGNOSIS AND PM CDT TREATMENT documented in this encounter Results CBC WITH DIFFERENTIAL (04/13/2019 7:46 PM CDT) WBC 5.81 4.20 - 10.70 [facility] 10*3/L [facility] RBC 4.63 4.26 - 5.52 [facility] 10*6/L [facility] HGB 15.1 12.2 - 16.4 [facility] g/dL [facility] HCT 42.6 38.4 - 49.3 % [facility] MCV 92.0 81.7 - 95.6 fL [facility] MCH 32.6 26.1 - 32.7 pg [facility] MCHC 35.4 (H) 31.2 - 35.0 [facility] g/dL [facility] RDW-SD 39.8 38.5 - 51.6 fL [facility] RDW-CV 11.8 (L) 12.1 - 15.4 % [facility] PLT 236 150 - 328 [facility] 10*3/L [facility] MPV 10.1 9.8 - 13.0 fL [facility] NRBC/100 WBC 0.0 0.0 - 10.0 /100 [facility] WBCs [facility] NRBC x10^3 <0.01 10*3/L [facility] GRAN MAT (NEUT) % 63.4 % [facility] IMM GRAN % 0.20 % [facility] LYMPH % 28.7 % [facility] MONO % 5.5 % [facility] EOS % 1.5 % [facility] BASO % 0.7 % [facility] GRAN MAT x10^3(ANC) 3.68 1.99 - 6.95 [facility] 10*3/uL [facility] IMM GRAN x10^3 <0.03 0.00 - 0.06 [facility] 10*3/uL [facility] LYMPH x10^3 1.67 1.09 - 3.23 [facility] 10*3/uL [facility] MONO x10^3 0.32 (L) 0.36 - 1.02 [facility] 10*3/uL [facility] EOS x10^3 0.09 0.06 - 0.53 [facility] 10*3/uL [facility] BASO x10^3 0.04 0.01 - 0.09 [place] [address]*3/uL [facility] Specimen Blood - VENOUS Performing Organization Address [facility] Phone Number [facility] CLIA: [id number], [address] [place] [address] MAGNESIUM (04/13/2019 6:13 PM CDT) MAGNESIUM 2.2 1.7 - 2.4 mg/dL [facility] Specimen Blood - VENOUS Performing Organization Address [facility] Phone Number [facility] CLIA: [id number], [address] [place] [address] TROPONIN I (04/13/2019 6:13 PM CDT) TROPONIN I 0.007 <=0.034 ng/mL [facility] Specimen Blood - VENOUS Narrative Performed At Equal or Less than 0.034 ng/ml---Normal [facility] Note: Cardiac troponin begins to rise 3-4 hours after the onset of ischemia. Repeat in 4-6 hours if the sample was drawn within 3-4 hours of the onset of the symptom and found normal. Between 0.035 and 0.120 ng/mL--- Borderline. Questionable myocardial injury or necrosis Note: Serial measurement may be necessary to confirm or exclude the diagnosis of myocardial injury or necrosis; Clinical correlation (symptoms, EKGs, imaging studies, and others) required; Repeat in 4-6 hours if clinically indicated. Equal or Higher than 0.121 ng/mL---Abnormal. Myocardial Injury or Necrosis Likely Biotin has been reported to cause a negative bias, interpret results relative to patient's use of biotin. Performing Organization Address City/[facility] Phone Number [facility] CLIA: [id number], [address] [place] [address] COMP. METABOLIC PANEL (72769) (04/13/2019 6:13 PM CDT) NA 137 135 - 145 [facility] mmol/L [facility] K 4.6 3.5 - 5.0 [facility] mmol/L [facility] CL 100 98 - 108 mmol/L [facility] CO2 TOTAL 25 23 - 31 mmol/L [facility] AGAP 12 2 - 16 [facility] BUN 5 (L) 7 - 23 mg/dL [facility] GLUCOSE 88 70 - 110 mg/dL [facility] CREATININE 0.50 (L) 0.60 - 1.25 [facility] mg/dL [facility] TOTAL BILI 0.9 0.1 - 1.1 mg/dL [facility] CALCIUM 9.2 8.6 - 10.6 [facility] mg/dL [facility] T PROTEIN 8.4 (H) 6.3 - 8.2 g/dL [facility] ALBUMIN 4.7 3.5 - 5.0 g/dL [facility] ALK PHOS 66 34 - 122 U/L [facility] ALT(SGPT) 50 9 - 51 U/L [facility] AST(SGOT) 59 (H) 13 - 40 U/L [facility] eGFR Calculation 172.6 mL/min/1.73m2 [facility] [place]) eGFR Calculation 209.2 mL/min/1.73m2 [facility] () [facility] Specimen Blood - VENOUS Narrative Performed At Association of Glomerular Filtration Rate (GFR) [facility] and Staging of Kidney Disease* + + +- + | GFR (mL/min/1.73 m2)| With Kidney Damage|Without Kidney Damage + + +- + |>90| Stage one| Normal + + +- + |60-89|S tage two| Decreased GFR + + +- + |30-59|S tage three| Stage three + + +- + |15-29|S tage four | Stage four + + +- + |<15 (or dialysis)|Stage five | Stage five + + +- + *Each stage assumes the associated GFR level has been in effect for at least three months.Stages 1 to 5, with or without kidney disease, indicate chronic kidney disease. Notes: Determination of stages one and two (with eGFR >59mL/min/1.73 m2) requires estimation of kidney damage for at least three months as defined by structural or functional abnormalities of the kidney, manifested by either: Pathological abnormalities or Markers of kidney damage (including abnormalities in the composition of the blood or urine or abnormalities in imaging tests). Performing Organization Address City/State/Zipcode Phone Number [facility] CLIA: [id number], [address] [place] [address] documented in this encounter Visit Diagnoses Diagnosis Right upper quadrant abdominal pain - Primary Abdominal pain, right upper quadrant Chest pain, unspecified type documented in this encounter Administered Medications Medication Order MAR Action Action Date Dose Rate Site famotidine (PEPCID (PF)) injection Given 04/13/2019 8:47 PM CDT 20 mg 20 mg 20 mg, Slow IV Push, ONCE, 1 dose, 04/13/19 at 2200, DIVYA ketorolac (TORADOL) injection 30 mg Given 04/13/2019 7:34 PM CDT 30 mg 30 mg, Slow IV Push, ONCE, 1 dose, 04/13/19 at 2030, DIVYA, administrative appeals tribunal member approving Restricted medication: Yvon MCDONALD NaCl 0.9% (NS) bolus infusion New Bag 04/13/2019 7:34 PM CDT 1,000 mL 999 mL/hr 1,000 mL at 999 mL/hr, 1,000 mL, IV Infusion, ONCE, 1 dose, 04/13/19 at 2030, STAT documented in this encounter Insurance Payer Benefit Plan / Subscriber ID Effective Dates Phone Address Type Group MEDICARE MEDICARE PART xxxxxxxxxxx 2009-Prese [phone] [address] Medicare [place] [address] [id number] [place] [phone] documented as of this encounter"
--- NOTE | 2019-04-17 18:06 | RAD REPORT ---
EXAM DESCRIPTION: RAD - Chest Single View - 04/17/2019 5:58 pm CLINICAL HISTORY: Chest pain, substantial weight loss COMPARISON: April 2018 TECHNIQUE: AP portable chest image was obtained 1747 hours . FINDINGS: No focal lung parenchymal process. Interstitial pattern matches comparison. Hilar regions within normal range. Heart and vasculature are normal. No measurable pleural effusion and no pneumoth orax. No acute bony abnormality seen. No acute aortic findings suspected. IMPRESSION: No acute cardiopulmonary process. No significant interval change.
[2019-04-17 18:11] LABS: Absolute Lymphocytes (CBC) 1.2 K/uL (0.7-4.9); Basophils % 0.4 % (0-1.3); Hematocrit 45.9 % (39.6-49.0); Lymphocytes % 23.8 % (15.3-44.8); MPV 8.6 fL (7.6-11.3); RBC Red Blood Cell Count 4.91 M/uL (4.33-5.43)
[2019-04-17 18:13] LABS: Protime INR 1.15
[2019-04-17 18:29] LABS: ALT/SGPT 59 U/L (12-78); AST/SGOT 29 U/L (15-37); Albumin 4.3 g/dL (3.4-5.0); Alkaline Phosphatase 70 U/L (45-117); BUN Blood Urea Nitrogen 4 mg/dL (7-18); Bicarbonate 27 mmol/L (21-32); Bilirubin Direct 0.3 mg/dL (0-0.2); Bilirubin Total 1.3 mg/dL (0.2-1.0); CKMB Creatine Kinase MB 6.9 ng/mL (0.3-3.6); Creatine Phosphokinase 195 U/L (39-308); Glucose Level 94 mg/dL (74-106); NT PRO-BNP 64 pg/mL (<125); Potassium 3.8 mmol/L (3.5-5.1); Protein, Total 8.2 g/dL (6.4-8.2); Sodium Level 134 mmol/L (136-145); Troponin (Emerg Dept Use Only) < 0.02 ng/mL (0.0-0.045)
[2019-04-17] MEDS ORDERED: FENTANYL CITR 100 MCG/2 ML ONE (19:51)
[2019-04-17] MEDS ORDERED: ONDANSETRON 4 MG/2 ML VIAL ONE (19:51)
[2019-04-17] MEDS ORDERED: NA CHLORIDE 0.9% 100 ML IV ONE (19:52)
[2019-04-17] MEDS ORDERED: FAMOTIDINE 20 MG/2 ML VIAL IV ONE (19:52)
--- NOTE | 2019-04-17 20:28 | EDPHYS ---
Physician Documentation [facility] Name: Reji Rodrigez Age: 54 yrs Sex: Male : 1965 Arrival Date: 04/17/2019 Time: 16:57 Bed 13 Private MD: ED Physician Beck Simental HPI: 04/17 21:58 This 54 yrs old Male presents to ER via Wheelchair with complaints of Pain kb All Over, Toe Infection. 22:01 The patient presents with pain, "infection". The complaints affect the right first toe kb and left first toe. Context: the patient can fully bear weight, the patient is able to ambulate. Onset: The symptoms/episode began/occurred 1 month(s) ago. Modifying factors: The symptoms are alleviated by nothing, the symptoms are aggravated by nothing. Associated signs and symptoms: Pertinent positives: redness and swelling. Severity of symptoms: At their worst the symptoms were moderate, in the emergency department the symptoms are unchanged. The patient has not experienced similar symptoms in the past. The patient has not recently seen a physician. Pt reports he thinks his great toes are infected. States they have been red so he has been putting a salve on them that stained his toenails. States he also has chronic back pain because of lyme disease and mold toxicity so he just feels sick all over. Reports he has lost 140 pounds in the last year and he has seen a bunch of specialists, but no one can figure out what is wrong with him. STates it hurts to eat or swallow anything so he has been having to crush his xanax and do enemas with it. States he had a scope done by GI, but they couldn't find anything wrong. . 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 - Social history:: Smoking status: Patient/guardian denies using tobacco. - Ebola Screening: : No symptoms or risks identified at this time. ROS: 22:01 Constitutional: Negative for fever, chills, and weight loss, ENT: Negative for injury, kb pain, and discharge, Cardiovascular: Negative for chest pain, palpitations, and edema, Respiratory: Negative for shortness of breath, cough, wheezing, and pleuritic chest pain, Abdomen/GI: Negative for abdominal pain, nausea, vomiting, diarrhea, and constipation, : Negative for injury, bleeding, discharge, and swelling, Neuro: Negative for headache, weakness, numbness, tingling, and seizure. 22:01 Neck: Positive for pain with movement, pain at rest. 22:01 Back: Positive for pain at rest, pain with movement. 22:01 Skin: Positive for erythema, of the right first toe and left first toe. Exam: 22:01 Constitutional: This is a well developed, well nourished patient who is awake, alert, kb and in no acute distress. Head/Face: Normocephalic, atraumatic. ENT: Nares patent. No nasal discharge, no septal abnormalities noted. Tympanic membranes are normal and external auditory canals are clear. Oropharynx with no redness, swelling, or masses, exudates, or evidence of obstruction, uvula midline. Mucous membranes moist. Neck: Trachea midline, no thyromegaly or masses palpated, and no cervical lymphadenopathy. Supple, full range of motion without nuchal rigidity, or vertebral point tenderness. No Meningismus. Chest/axilla: Normal chest wall appearance and motion. Nontender with no deformity. No lesions are appreciated. Cardiovascular: Regular rate and rhythm with a normal S1 and S2. No gallops, murmurs, or rubs. Normal PMI, no JVD. No pulse deficits. Respiratory: Lungs have equal breath sounds bilaterally, clear to auscultation and percussion. No rales, rhonchi or wheezes noted. No increased work of breathing, no retractions or nasal flaring. Abdomen/GI: Soft, non-tender, with normal bowel sounds. No distension or tympany. No guarding or rebound. No evidence of tenderness throughout. Back: No spinal tenderness. No costovertebral tenderness. Full range of motion. Neuro: Awake and alert, GCS 15, oriented to person, place, time, and situation. Cranial nerves II-XII grossly intact. Motor strength 5/5 in all extremities. Sensory grossly intact. Cerebellar exam normal. Normal gait. 22:01 Skin: Slight redness to bilateral great toes. No swelling. Nails stained a brown color due to salve that has been applied for the last month. . 22:13 Psych: Behavior/mood is anxious, Affect is animated, Oriented to person, place, time, kb Patient has no thoughts/intents to harm self or others. Judgement / Insight is normal. Memory is normal. Delusions/hallucinations are not present. Vital Signs: 17:01 BP 124 / 78; Pulse 65; Resp 16; Temp 98; Pulse Ox 100% on R/A; Weight 68.04 kg; Height hb 6 ft. 2 in. (187.96 cm); Pain 10/10; 19:45 BP 104 / 68; Pulse 51; Resp 18; Pulse Ox 100% on R/A; jb4 20:30 BP 129 / 72; Pulse 52; Resp 16; Pulse Ox 99% on R/A; jb4 22:00 BP 106 / 66; Pulse 54; Resp 18; Pulse Ox 99% on R/A; jb4 17:01 Body Mass Index 19.26 (68.04 kg, 187.96 cm) hb MDM: 17:10 Patient medically screened. kb 20:26 Data reviewed: vital signs, nurses notes. Data interpreted: Pulse oximetry: on room air kb is 100 %. Interpretation: normal. Counseling: I had a detailed discussion with the patient and/or guardian regarding: the historical points, exam findings, and any diagnostic results supporting the discharge/admit diagnosis, lab results, radiology results, the need for outpatient follow up, a family practitioner, to return to the emergency department if symptoms worsen or persist or if there are any questions or concerns that arise at home. 04/17 17:32 Order name: Basic Metabolic Panel; Complete Time: 18:37 kb 04/17 17:32 Order name: CBC with Diff; Complete Time: 18:19 kb 04/17 17:32 Order name: LFT's; Complete Time: 18:37 kb 04/17 17:32 Order name: Magnesium; Complete Time: 18:37 kb 04/17 17:32 Order name: NT PRO-BNP; Complete Time: 18:37 kb 04/17 17:32 Order name: PT-INR; Complete Time: 18:19 kb 04/17 17:32 Order name: Troponin (emerg Dept Use Only); Complete Time: 18:37 kb 04/17 17:32 Order name: XRAY Chest (1 view); Complete Time: 18:07 kb /02 17:32 Order name: Ckmb; Complete Time: 18:37 kb 04/17 17:32 Order name: CPK; Complete Time: 18:37 kb 04/17 17:32 Order name: EKG; Complete Time: 17:33 kb 04/17 17:32 Order name: Cardiac monitoring; Complete Time: 19:00 kb 04/17 17:32 Order name: EKG - Nurse/Tech; Complete Time: 19:00 kb 04/17 17:32 Order name: IV Saline Lock; Complete Time: 19:00 kb 04/17 17:32 Order name: Labs collected and sent; Complete Time: 19:00 kb 04/17 17:32 Order name: O2 Per Protocol; Complete Time: 18:59 kb 04/17 17:32 Order name: O2 Sat Monitoring; Complete Time: 18:59 kb Administered Medications: 19:56 Drug: Zofran 4 mg Route: IVP; Site: right antecubital; fc 20:20 Follow up: Response: No adverse reaction; Nausea is decreased jb4 20:00 Drug: Pepcid 20 mg Route: IVP; Site: right antecubital; fc 20:30 Follow up: Response: No adverse reaction jb4 20:04 Drug: fentaNYL (PF) 50 mcg Route: IVP; Site: right antecubital; fc 20:34 Follow up: Response: No adverse reaction; Pain is decreased jb4 20:06 Not Given (Patient Refused): morphine 4 mg IVP once fc 20:59 Drug: Ativan 0.5 mg {Note: given slow IV push as highest IV port on NS infusion..} jb4 Route: IVP; Site: right antecubital; 21:30 Follow up: Response: No adverse reaction; Pain is decreased jb4 20:59 Drug: NS 0.9% 1000 ml Route: IV; Rate: 1 bolus; Site: right antecubital; jb4 22:00 Follow up: Response: No adverse reaction; IV Status: Completed infusion; IV Intake: jb4 1000ml Disposition: 04/17/19 20:27 Discharged to Home. Impression: Chronic pain, not elsewhere classified - back, Local infection of the skin and subcutaneous tissue, unspecified. - Condition is Stable. - Discharge Instructions: Cellulitis, Adult, [id number]. - Prescriptions for Bactrim DS 800- 160 mg Oral Tablet - take 1 tablet by ORAL route every 12 hours for 10 days; 20 tablet. - Medication Reconciliation Form, Thank You Letter, Antibiotic Education, Prescription Opioid Use form. - Follow up: Emergency Department; When: As needed; Reason: Worsening of condition. Follow up: Private Physician; When: 2 - 3 days; Reason: Recheck today's complaints, Continuance of care, Re-evaluation by your physician. Addendum: 04/20/2019 09:04 Co-signature as Attending Physician, Beck Simental MD I agree with the assessment and k dr plan of care. Signatures: Dispatcher [employer] EDMS Letha Warner, AEROSPACE ENGINEER-C AEROSPACE ENGINEER-Ckb Beck Simental MD MD [facility] Susie Lovett RN RN Keiko Alonzo, NADYA RN Eladio Lo RN RN jb4 Corrections: (The following items were deleted from the chart) 04/17 22:18 20:27 04/17/2019 20:27 Discharged to Home. Impression: Chronic pain, not elsewhere jb4 classified - back; Local infection of the skin and subcutaneous tissue, unspecified. Condition is Stable. Forms are Medication Reconciliation Form, Thank You Letter, Antibiotic Education, Prescription Opioid Use. Follow up: Emergency Department; When: As needed; Reason: Worsening of condition. Follow up: Private Physician; When: 2 - 3 days; Reason: Recheck today's complaints, Continuance of care, Re-evaluation by your physician. kb
--- NOTE | 2019-04-17 20:28 | ER ---
Nurse's Notes [facility] Name: Reji Rodrigez Age: 54 yrs Sex: Male : 1965 Arrival Date: 04/17/2019 Time: 16:57 Bed 13 Private MD: Diagnosis: Chronic pain, not elsewhere classified-back;Local infection of the skin and subcutaneous tissue, unspecified Presentation: 04/17 16:59 Presenting complaint: "I've been sick for a long time, lost 140 pounds, I have lyme and hb mold, my kidneys and liver are toxic, and my immune system is bad, I can't breathe and I can't see and I hurt all over, especially my toes, I feel like I am going insane". Transition of care: patient was not received from another setting of care. Onset of symptoms is unknown. Risk Assessment: Do you want to hurt yourself or someone else? Patient reports no desire to harm self or others. Initial Sepsis Screen: Does the patient meet any 2 criteria? No. Patient's initial sepsis screen is negative. Does the patient have a suspected source of infection? No. Patient's initial sepsis screen is negative. Care prior to arrival: None. 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 - Social history:: Smoking status: Patient/guardian denies using tobacco. - Ebola Screening: : No symptoms or risks identified at this time. Screenin:00 Abuse screen: Denies threats or abuse. Denies injuries from another. Nutritional jl7 screening: No deficits noted. Tuberculosis screening: No symptoms or risk factors identified. Fall Risk IV access (20 points). Total Olea Fall Scale indicates No Risk (0-24 pts). Assessment: 17:30 General: Appears in no apparent distress. uncomfortable, Behavior is cooperative, jl7 anxious. Pain: Complains of pain in All Over, mainly in spine Pain currently is 10 out of 10 on a pain scale. Is continuous. Neuro: Level of Consciousness is awake, alert, obeys commands, Oriented to person, place, time, situation. Cardiovascular: Patient's skin is warm and dry. Respiratory: Airway is patent Respiratory effort is even, unlabored, Respiratory pattern is regular, symmetrical. Derm: Skin is pink, warm \\T\\ dry. 19:20 Reassessment: Patient appears in no apparent distress at this time. Patient and/or jb4 family updated on plan of care and expected duration. Pain level reassessed. Patient is alert, oriented x 3, equal unlabored respirations, skin warm/dry/pink. Pain: Complains of pain in all over Pain currently is 10 out of 10 on a pain scale. Is continuous. Neuro: Level of Consciousness is awake, alert, obeys commands, Oriented to person, place, time, situation. Cardiovascular: Patient's skin is warm and dry. Respiratory: Airway is patent Respiratory effort is even, unlabored, Respiratory pattern is regular, symmetrical. Derm: Skin is pink, warm \\T\\ dry. redness noted to ANA first toes. 19:52 Reassessment: Patient appears in no apparent distress at this time. No changes from jb4 previously documented assessment. Patient and/or family updated on plan of care and expected duration. Pain level reassessed. Patient is alert, oriented x 3, equal unlabored respirations, skin warm/dry/pink. 20:08 Reassessment: Pt refusing the Morphine stating that it made him have chest pain and a fc headache. Requesting Fentanyl because he has had that with no problems. Discussed with Letha DUNCAN and pt rec'd medication in ivf over 30 mins. 20:50 Reassessment: Patient and/or family updated on plan of care and expected duration. Pain jb4 level reassessed. Patient is alert, oriented x 3, equal unlabored respirations, skin warm/dry/pink. Attempted to clean patients toes per request. Pt smelled the chlorhexidine said it was to strong, removed from room, after cleaning patients toes, pt reported that his back spasms were back, they were making his chest feel tight, reported neck, and jaw stiffening, felt like his airway was closing. Respirations are even and, tachypneic and labored, breath sounds are clear ANA, no swelling is noted to the neck. throat or face. O2 sat at 100 on RA, pulse of 53 Provider notified, see MAR for orders. 22:00 Reassessment: Patient appears in no apparent distress at this time. Patient and/or jb4 family updated on plan of care and expected duration. Pain level reassessed. Patient is alert, oriented x 3, equal unlabored respirations, skin warm/dry/pink. Pt assisted out of ED via personal wheelchair by , verbalized understanding of D/c and follow up instructions. Vital Signs: 17:01 BP 124 / 78; Pulse 65; Resp 16; Temp 98; Pulse Ox 100% on R/A; Weight 68.04 kg; Height hb 6 ft. 2 in. (187.96 cm); Pain 10/10; 19:45 BP 104 / 68; Pulse 51; Resp 18; Pulse Ox 100% on R/A; jb4 20:30 BP 129 / 72; Pulse 52; Resp 16; Pulse Ox 99% on R/A; jb4 22:00 BP 106 / 66; Pulse 54; Resp 18; Pulse Ox 99% on R/A; jb4 17:01 Body Mass Index 19.26 (68.04 kg, 187.96 cm) hb ED Course: 16:57 Patient arrived in ED. rg4 17:01 Triage completed. hb 17:01 Arm band placed on. hb 17:04 Nancy Jimenes, NADYA is Primary Nurse. jl7 17:10 Letha Warner FNP-C [facility]. kb 17:10 Beck Simental MD is Attending Physician. kb 17:58 XRAY Chest (1 view) In Process Unspecified. EDMS 17:58 EKG done, by cardiovascular radiologic technologist. reviewed by Letha BUSCH. sm3 18:00 Patient has correct armband on for positive identification. Placed in gown. Bed in low jl7 position. Call light in reach. Side rails up X 1. shelter monitor on. Pulse ox on. NIBP on. Warm blanket given. 18:00 Initial lab(s) drawn, by me, sent to lab. Inserted saline lock: 22 gauge in left jl7 antecubital area, using aseptic technique. Blood collected. 20:59 Primary Nurse role handed off by Nancy Jimenes RN jb4 20:59 Eladio Lo, RN is Primary Nurse. jb4 22:00 No provider procedures requiring assistance completed. IV discontinued, intact, jb4 bleeding controlled, No redness/swelling at site. Administered Medications: 19:56 Drug: Zofran 4 mg Route: IVP; Site: right antecubital; fc 20:20 Follow up: Response: No adverse reaction; Nausea is decreased jb4 20:00 Drug: Pepcid 20 mg Route: IVP; Site: right antecubital; fc 20:30 Follow up: Response: No adverse reaction jb4 20:04 Drug: fentaNYL (PF) 50 mcg Route: IVP; Site: right antecubital; fc 20:34 Follow up: Response: No adverse reaction; Pain is decreased jb4 20:06 Not Given (Patient Refused): morphine 4 mg IVP once fc 20:59 Drug: Ativan 0.5 mg {Note: given slow IV push as highest IV port on NS infusion..} jb4 Route: IVP; Site: right antecubital; 21:30 Follow up: Response: No adverse reaction; Pain is decreased jb4 20:59 Drug: NS 0.9% 1000 ml Route: IV; Rate: 1 bolus; Site: right antecubital; jb4 22:00 Follow up: Response: No adverse reaction; IV Status: Completed infusion; IV Intake: jb4 1000ml Intake: 22:00 IV: 1000ml; Total: 1000ml. jb4 Outcome: 20:27 Discharge ordered by . yadiel 22:00 Discharged to home via wheelchair, with family. jb4 22:00 Condition: stable 22:00 Discharge instructions given to patient, family, Instructed on discharge instructions, follow up and referral plans. medication usage, Demonstrated understanding of instructions, follow-up care, medications. 22:18 Patient left the ED. jb4 Signatures: Dispatcher [employer] EDMS Letha Warner, JO-ANN HUTSON-Susie López RN RN fc Baxter, Heather, RN RN hb Garcia, Rubi 4 Eladio Lo RN RN jb4 Nancy Jimenes RN RN 7 Sherin Dowd [facility] Corrections: (The following items were deleted from the chart) 21:11 20:50 Reassessment: Patient and/or family updated on plan of care and expected jb4 duration. Pain level reassessed. Patient is alert, oriented x 3, equal unlabored respirations, skin warm/dry/pink. Attempted to clean patients toes per request. Pt smelled the chlorhexidine said it was to strong, removed from room, after cleaning patients toes, pt reported that his back spasms were back, they were making his chest feel tight, reported neck, and jaw stiffening, felt like his airway was closing. Respirations are even and, tachypneic and labored, breath sounds are clear ANA, no swelling is noted to the neck. throat or face. Provider notified, see MAR for orders. jb4
[2019-04-17] MEDS ORDERED: LORazepam 2 MG/ML VIAL ONE (20:53)
[2019-04-17] MEDS ORDERED: NA CHLORIDE 0.9% 1,000 ML ONE (20:53)
--- NOTE | 2019-04-18 06:47 | EKG ---
Test Date: 2019-04-17 Test Time: 17:42:02 Factorer: GENE MEASUREMENT RESULTS: Intervals: Rate: 55 [place]: 164 QRSD: 94 QT: 466 QTc: 445 [place]: P: 85 [place]: 164 QRS: 86 T: 68 INTERPRETIVE STATEMENTS: Sinus bradycardia Otherwise normal ECG Compared to ECG 04/29/2018 17:29:35 No significant changes Electronically Signed On 04-18-19 06:46:05 CDT by Harrison Ayoub
== END 2019-04-17 22:18 | disposition home or self-care (01) ==
LOC: ER 16:55
DX: L08.9 Local infection of the skin and subcutaneous tissue, unspecified (principal); G89.29 Other chronic pain; M54.9 Dorsalgia, unspecified
CPT/HCPCS: 96361; 93005; 85025; 80048; 36415; 83735; 82550; 85610; 80076; 84484; 82553; 83880; 71045; 96375; 96374; 99284; J3010; J7030; J2405

== ENCOUNTER 2019-07-10 17:54 | Emergency (ER) | payer OTHER ==
--- NOTE | 2019-07-10 19:09 | RAD REPORT ---
EXAM DESCRIPTION: CT - Head Brain Wo Cont - 07/10/2019 6:53 pm CLINICAL HISTORY: Headache COMPARISON: 2018 TECHNIQUE: Computed axial tomography of the head was obtained. IV contrast was not requested. All CT scans are performed using dose optimization technique as appropriate and may include automated exposure control or mA/KV adjustment according to patient size. FINDINGS: An intracranial bleed is not seen . The ventricles are normal in caliber. No extra-axial fluid collection is noted. Fluid within the sinuses/ mastoids is not seen. IMPRESSION: No acute intracranial abnormality is seen. If patient's symptoms persist MRI of the bra in would be recommended.
[2019-07-10] MEDS ORDERED: NA CHLORIDE 0.9% 1,000 ML ONE ×2 (19:14→22:26)
[2019-07-10] MEDS ORDERED: METOCLOPRAMIDE 10 MG/2mL INJ ONE (19:14)
[2019-07-10] MEDS ORDERED: DIPHENHYDRAMINE 50 MG/ML VIAL ONE (19:14)
[2019-07-10 20:00] LABS: Absolute Lymphocytes (CBC) 1.6 K/uL (0.7-4.9); Hematocrit 39.9 % (39.6-49.0); Lymphocytes % 33.9 % (15.3-44.8); MPV 8.7 fL (7.6-11.3); RBC Red Blood Cell Count 4.24 M/uL (4.33-5.43)
[2019-07-10 20:10] LABS: ALT/SGPT 38 U/L (12-78); AST/SGOT 20 U/L (15-37); Albumin 3.7 g/dL (3.4-5.0); Alkaline Phosphatase 54 U/L (45-117); BUN Blood Urea Nitrogen 4 mg/dL (7-18); Bicarbonate 29 mmol/L (21-32); Bilirubin Total 0.7 mg/dL (0.2-1.0); Glucose Level 81 mg/dL (74-106); Potassium 4.5 mmol/L (3.5-5.1); Protein, Total 6.8 g/dL (6.4-8.2); Sodium Level 132 mmol/L (136-145)
[2019-07-10 20:13] LABS: Urine Blood NEGATIVE (NEG); Urine Glucose NEGATIVE (NEG); Urine Protein NEGATIVE (NEG); Urine Specific Gravity 1.015 (1.005-1.030)
[2019-07-10] MEDS ORDERED: FAMOTIDINE 20 MG/2 ML VIAL IV ONE (20:48)
[2019-07-10] MEDS ORDERED: LORazepam 2 MG/ML VIAL ONE (22:26)
[2019-07-10 22:31] LABS: CSF Glucose 48 mg/dL (40-70)
[2019-07-10 22:52] LABS: Appearance CLEAR (CLEAR); Body Fluid Source CSF; Body Fluid WBC 1 /mm^3; Color of fluid Colorless (COLORLESS)
[2019-07-10 22:53] LABS: Appearance CLEAR (CLEAR); Body Fluid Source CSF; Body Fluid WBC 3 /mm^3; Color of fluid Colorless (COLORLESS); Fluid Total Volume 4 ml
--- NOTE | 2019-07-10 23:10 | EDPHYS ---
Physician Documentation [facility] Name: Reji Rodrigez Age: 54 yrs Sex: Male : 1965 Arrival Date: 07/10/2019 Time: 17:56 Bed 6 Private MD: JACKIE Physician Uvaldo Sears HPI: 07/10 18:38 This 54 yrs old Male presents to ER via Wheelchair with complaints of Eye jmm Problem, Headache, Nausea. 18:38 The patient complains of pain to the forehead, right confucianist and left confucianist. Onset: The jmm symptoms/episode began/occurred gradually, 2 day(s) ago. Associated signs and symptoms: Pertinent positives: blurred vision, Pertinent negatives: fever. Headache History: The patient has had previous headaches and this one is less severe than previous episodes. The patient has experienced similar episodes in the past, several times. This is a 54 year old male with a history chronic pain, chronic abdominal pain presents to the ED with complaints of frontal headache beginning 2 days ago. Symptoms worsened approx 3 hours ago. Patient states developing bilateral blurred vision. . Historical: - Allergies: 18:04 Lyrica; sv 18:04 "everything I take makes me nausous"; sv 18:04 "everything orally"; sv - PMHx: 18:04 "mold toxicity"; Anxiety; c4-c7 fused, neck pain; epstine torres high a ccouple times; sv gastritis; Hepatitis; Hypothyroidism; lyme disease; ROS: 18:45 Constitutional: Negative for fever, chills, and weight loss, Cardiovascular: Negative jmm for chest pain, palpitations, and edema, Respiratory: Negative for shortness of breath, cough, wheezing, and pleuritic chest pain, Abdomen/GI: Negative for abdominal pain, nausea, vomiting, diarrhea, and constipation. 18:45 Neck: Positive for pain with movement. 18:45 Neuro: Positive for headache, visual changes. 18:45 All other systems are negative. Exam: 18:45 Head/Face: atraumatic. Eyes: EOMI, no conjunctival erythema appreciated ENT: Moist jmm Mucus Membranes Neck: Trachea midline, Supple Chest/axilla: Normal chest wall appearance and motion. Cardiovascular: Regular rate and rhythm. No edema appreciated Respiratory: Normal respirations, no respiratory distress appreciated Abdomen/GI: Non distended, soft Back: Normal ROM Skin: General appearance color normal MS/ Extremity: Moves all extremities, no obvious deformities appreciated, no edema noted to the lower extremities Neuro: Awake and alert, normal gait Psych: Behavior is normal, Mood is normal, Patient is cooperative and pleasant 18:45 Constitutional: The patient appears alert, awake, uncomfortable. 18:45 Neuro: Orientation: is normal, Mentation: is normal, Memory: is normal, Cranial nerves: Vital Signs: 18:04 BP 127 / 79; Pulse 47; Resp 20; Temp 97.8(O); Pulse Ox 97% ; Weight 65.77 kg; Height 6 sv ft. 2 in. (187.96 cm); 19:45 BP 114 / 72; Pulse 44; Resp 16; Pulse Ox 100% on R/A; jb4 20:45 BP 104 / 75; Pulse 49; Resp 16; Pulse Ox 100% on R/A; jb4 22:00 BP 131 / 77; Pulse 50; Resp 16; Pulse Ox 100% on R/A; jb4 23:00 BP 120 / 72; Pulse 47; Resp 16; Pulse Ox 100% on R/A; jb4 23:30 BP 124 / 67; Pulse 47; Resp 16; Pulse Ox 100% on R/A; jb4 18:04 Body Mass Index 18.62 (65.77 kg, 187.96 cm) sv Procedures: 21:58 Lumbar Puncture: Patient placed in left lateral decubitus position. clear fluid. [facility] Puncture site dressed with band aid, Patient tolerated well. MDM: 18:38 Patient medically screened. [facility] 21:58 Data reviewed: vital signs, nurses notes. Counseling: I had a detailed discussion with [facility] the patient and/or guardian regarding:. Transition of care: After a detail discussion of the patient's case, care is transferred to Uvaldo Sears MD. 07/10 18:40 Order name: CBC with Diff; Complete Time: 20:29 [facility] 07/10 18:40 Order name: CMP; Complete Time: 20:23 [facility] 07/10 18:40 Order name: ESR; Complete Time: 20:29 [facility] 07/10 19:38 Order name: Urine Dipstick--Ancillary (enter results); Complete Time: 20:23 ar5 07/10 20:55 Order name: CSF Bacterial Antigens (tube 1); Complete Time: 23:05 [facility] 07/10 20:55 Order name: Csf Culture [facility] 07/10 18:39 Order name: CT Head Brain wo Cont; Complete Time: 19:24 [facility] 07/10 20:55 Order name: Fluid Cell Count,Body; Complete Time: 23:05 [facility] 07/10 20:55 Order name: Spinal Fluid Profile; Complete Time: 23:05 [facility] 07/10 18:40 Order name: Urine Dipstick-Ancillary (obtain specimen); Complete Time: 19:40 [facility] 07/10 20:55 Order name: LP Consents; Complete Time: 21:06 [facility] 07/10 20:55 Order name: LP Setup; Complete Time: 21:06 [facility] Administered Medications: 19:20 Drug: diphenhydrAMINE 12.5 mg Route: IVP; Site: right forearm; [facility] 19:50 Follow up: Response: No adverse reaction; Marked relief of symptoms [facility] 19:21 Drug: NS 0.9% 1000 ml Route: IV; Rate: 1 bolus; Site: right forearm; [facility] 20:20 Follow up: Response: No adverse reaction; IV Status: Completed infusion; IV Intake: jb4 1000ml 19:21 Drug: Reglan 10 mg {Note: added to Bolus per providers orders.} Route: IVP; Site: right [facility] forearm; 19:50 Follow up: Response: No adverse reaction; Marked relief of symptoms [facility] 20:55 Drug: Pepcid 20 mg Route: IVP; Site: right forearm; jb4 23:10 Follow up: Response: No adverse reaction [facility] 22:35 Drug: NS 0.9% 1000 ml Route: IV; Rate: 1 bolus; Site: right forearm; [facility] 07/11 00:01 Follow up: Response: No adverse reaction; IV Status: Completed infusion; IV Intake: jb4 1000ml 07/10 22:35 Drug: Ativan 0.5 mg Route: IVP; Site: right forearm; jb4 23:10 Follow up: Response: No adverse reaction [facility] Disposition: 07/10/19 23:09 Discharged to Home. Impression: Nausea, Headache, Weakness, Abdominal tenderness. - Condition is Stable. - Discharge Instructions: General Headache Without Cause, Nausea and Vomiting, Adult, Nausea, Adult, Weakness, Fatigue, Weakness, [id number], General Headache Without Cause, [id number]. - Prescriptions for Pepcid 20 mg Oral Tablet - take 1 tablet by ORAL route every 12 hours for 10 days; 20 tablet. Zofran 4 mg Oral Tablet - take 1 tablet by ORAL route every 12 hours As needed; 20 tablet. Bentyl 20 mg Oral Tablet - take 1 tablet by ORAL route every 6 hours As needed; 20 tablet. - Medication Reconciliation Form, Thank You Letter, Antibiotic Education, Prescription Opioid Use form. - Follow up: Private Physician; When: 2 - 3 days; Reason: Recheck today's complaints, Continuance of care, Re-evaluation by your physician. Follow up: Desmond Mejia MD; When: 2 - 3 days; Reason: Recheck today's complaints, Re-evaluation by your physician. Follow up: Deep Thomas MD; When: 2 - 3 days; Reason: Recheck today's complaints, Re-evaluation by your physician. - Problem is new. - Symptoms have improved. Addendum: 07/13/2019 08:30 Co-signature as Attending Physician, Uvaldo Sears MD I agree with the assessment and k dr plan of care. Signatures: Dispatcher [employer] [facility] Hortencia Swanson, RN RN Uvaldo Flynn MD MD cha Rittger, Kevin, MD MD kdr Mickail, Joel, PA PA [facility] Eladio Lo, RN RN jb4 Corrections: (The following items were deleted from the chart) 07/10 18:46 18:38 This is a 54 year old male with a history. [facility] 20:56 20:52 Head Angio+CT.RAD.BRZ ordered. [facility] 20:56 20:52 Neck Angio+CT.RAD.BRZ ordered. [facility] 23:10 23:09 07/10/2019 23:09 Discharged to Home. Impression: Nausea; Headache; Weakness. teddy Condition is Stable. Forms are Medication Reconciliation Form, Thank You Letter, Antibiotic Education, Prescription Opioid Use. Follow up: Private Physician; When: 2 - 3 days; Reason: Recheck today's complaints, Continuance of care, Re-evaluation by your physician. Problem is new. Symptoms have improved. teddy 23:45 23:10 07/10/2019 23:09 Discharged to Home. Impression: Nausea; Headache; Weakness. teddy Condition is Stable. Forms are Medication Reconciliation Form, Thank You Letter, Antibiotic Education, Prescription Opioid Use. Follow up: Private Physician; When: 2 - 3 days; Reason: Recheck today's complaints, Continuance of care, Re-evaluation by your physician. Follow up: Desmond Mejia; When: 2 - 3 days; Reason: Recheck today's complaints, Re-evaluation by your physician. Follow up: Deep Thomas; When: 2 - 3 days; Reason: Recheck today's complaints, Re-evaluation by your physician. Problem is new. Symptoms have improved. teddy 07/11 00:09 07/10 23:45 07/10/2019 23:09 Discharged to Home. Impression: Nausea; Headache; jb4 Weakness; Abdominal tenderness. Condition is Stable. Discharge Instructions: General Headache Without Cause, Nausea and Vomiting, Adult, Nausea, Adult, Weakness, Fatigue, Weakness, Nmut-gk-Stoj, General Headache Without Cause, Rruo-kg-Ocgu. Prescriptions for Pepcid 20 mg Oral Tablet - take 1 tablet by ORAL route every 12 hours for 10 days; 20 tablet, Zofran 4 mg Oral Tablet - take 1 tablet by ORAL route every 12 hours As needed; 20 tablet. and Forms are Medication Reconciliation Form, Thank You Letter, Antibiotic Education, Prescription Opioid Use. Follow up: Private Physician; When: 2 - 3 days; Reason: Recheck today's complaints, Continuance of care, Re-evaluation by your physician. Follow up: Desmond Mejia; When: 2 - 3 days; Reason: Recheck today's complaints, Re-evaluation by your physician. Follow up: Deep Thomas; When: 2 - 3 days; Reason: Recheck today's complaints, Re-evaluation by your physician. Problem is new. Symptoms have improved. [facility]
--- NOTE | 2019-07-10 23:10 | ER ---
Nurse's Notes [facility] Name: Reji Rodrigez Age: 54 yrs Sex: Male : 1965 Arrival Date: 07/10/2019 Time: 17:56 Bed 6 Private MD: Diagnosis: Nausea;Headache;Weakness;Abdominal tenderness Presentation: 07/10 18:01 Presenting complaint: Patient states: frontal pain/pressure x 2 days, blurry vision sv started 1700 today. Transition of care: patient was not received from another setting of care. Onset of symptoms was June 2019. Care prior to arrival: None. 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 Nutritional screening: No deficits noted. jb4 Tuberculosis screening: No symptoms or risk factors identified. Fall Risk IV access (20 points). Ambulatory Aid- Crutches/Cane/Walker (15 pts). Total Olea Fall Scale indicates Low Risk Score (25-44 pts). Fall prevention measures have been instituted. Side Rails Up X 2 Placed close to Nursing Station Frequent Obs/Assesments occuring Family Present and informed to notify staff if they need to leave bedside As available Patient and Family Educated on Fall Prevention Program and strategies. Assessment: 19:19 General: Appears in no apparent distress. uncomfortable, Behavior is calm, cooperative, jb4 appropriate for age. Pain: Complains of pain in epigastric area, headache Pain does not radiate. Pain currently is 8 out of 10 on a pain scale. Quality of pain is described as burning. Neuro: Level of Consciousness is awake, alert, obeys commands, Oriented to person, place, time, situation. Cardiovascular: Patient's skin is warm and dry. Respiratory: Airway is patent Respiratory effort is even, unlabored, Respiratory pattern is regular, symmetrical. GI: No deficits noted. No signs and/or symptoms were reported involving the gastrointestinal system. : No deficits noted. No signs and/or symptoms were reported regarding the genitourinary system. EENT: No deficits noted. No signs and/or symptoms were reported regarding the EENT system. Derm: Skin is intact, Skin is pink, warm \\T\\ dry. Musculoskeletal: No deficits noted. No signs and/or symptoms reported regarding the musculoskeletal system. 20:00 Reassessment: Patient appears in no apparent distress at this time. Patient and/or jb4 family updated on plan of care and expected duration. Pain level reassessed. Patient is alert, oriented x 3, equal unlabored respirations, skin warm/dry/pink. 21:00 Reassessment: Patient appears in no apparent distress at this time. Patient and/or jb4 family updated on plan of care and expected duration. Pain level reassessed. Patient is alert, oriented x 3, equal unlabored respirations, skin warm/dry/pink. 22:00 Reassessment: Patient appears in no apparent distress at this time. Patient and/or jb4 family updated on plan of care and expected duration. Pain level reassessed. Patient is alert, oriented x 3, equal unlabored respirations, skin warm/dry/pink. 23:00 Reassessment: Patient appears in no apparent distress at this time. No changes from jb4 previously documented assessment. Patient is alert, oriented x 3, equal unlabored respirations, skin warm/dry/pink. 23:18 Reassessment: D/c pending the completion of Fluids. jb4 07/11 00:02 Reassessment: Patient appears in no apparent distress at this time. Patient and/or jb4 family updated on plan of care and expected duration. Pain level reassessed. Patient is alert, oriented x 3, equal unlabored respirations, skin warm/dry/pink. Pt verbalized understanding of d/c and follow up instructions. assisted out of ED via wheelchair. Vital Signs: 07/10 18:04 BP 127 / 79; Pulse 47; Resp 20; Temp 97.8(O); Pulse Ox 97% ; Weight 65.77 kg; Height 6 sv ft. 2 in. (187.96 cm); 19:45 BP 114 / 72; Pulse 44; Resp 16; Pulse Ox 100% on R/A; jb4 20:45 BP 104 / 75; Pulse 49; Resp 16; Pulse Ox 100% on R/A; jb4 22:00 BP 131 / 77; Pulse 50; Resp 16; Pulse Ox 100% on R/A; jb4 23:00 BP 120 / 72; Pulse 47; Resp 16; Pulse Ox 100% on R/A; jb4 23:30 BP 124 / 67; Pulse 47; Resp 16; Pulse Ox 100% on R/A; jb4 18:04 Body Mass Index 18.62 (65.77 kg, 187.96 cm) ED Course: 17:56 Patient arrived in ED. mr 18:03 Triage completed. sv 18:05 Arm band placed on. sv 18:31 Roberto Moran PA is PHCP. [facility] 18:31 Beck Simental MD is Attending Physician. [facility] 18:52 CT completed. Patient tolerated procedure well. Patient moved to CT via stretcher. vm2 Patient moved back from CT. 18:52 CT Head Brain wo Cont In Process Unspecified. EDMS 19:05 Eladio Lo, NADYA is Primary Nurse. jb4 19:19 Patient has correct armband on for positive identification. Bed in low position. Call jb4 light in reach. Side rails up X2. salesperson women's dresses on. Pulse ox on. NIBP on. 19:19 Initial lab(s) drawn, by co, sent to lab. Inserted saline lock: 22 gauge in right jb4 forearm, using aseptic technique. Blood collected. 21:45 Assist provider with lumbar puncture: Set up LP tray. Performed by Roberto HERRERA CSF jb4 is clear. Puncture site dressed with band aid, Procedure was successful. Patient tolerated well. 23:05 Attending Physician role handed off by Beck Simental MD teddy 23:05 Uvaldo Sears MD is Attending Physician. teddy 23:10 Desmond Mejia MD is Referral Physician. teddy 23:10 Deep Thomas MD is Referral Physician. [facility] 07/11 00:06 IV discontinued, intact, bleeding controlled, No redness/swelling at site. Pressure jb4 dressing applied. Administered Medications: 07/10 19:20 Drug: diphenhydrAMINE 12.5 mg Route: IVP; Site: right forearm; jb4 19:50 Follow up: Response: No adverse reaction; Marked relief of symptoms jb 19:21 Drug: NS 0.9% 1000 ml Route: IV; Rate: 1 bolus; Site: right forearm; jb4 20:20 Follow up: Response: No adverse reaction; IV Status: Completed infusion; IV Intake: jb4 1000ml 19:21 Drug: Reglan 10 mg {Note: added to Bolus per providers orders.} Route: IVP; Site: right jb4 forearm; 19:50 Follow up: Response: No adverse reaction; Marked relief of symptoms jb4 20:55 Drug: Pepcid 20 mg Route: IVP; Site: right forearm; jb4 23:10 Follow up: Response: No adverse reaction jb4 22:35 Drug: NS 0.9% 1000 ml Route: IV; Rate: 1 bolus; Site: right forearm; jb4 07/11 00:01 Follow up: Response: No adverse reaction; IV Status: Completed infusion; IV Intake: jb4 1000ml 07/10 22:35 Drug: Ativan 0.5 mg Route: IVP; Site: right forearm; jb4 23:10 Follow up: Response: No adverse reaction jb4 Intake: 20:20 IV: 1000ml; Total: 1000ml. jb4 07/11 00:01 IV: 1000ml; Total: 2000ml. jb4 Outcome: 07/10 23:09 Discharge ordered by . teddy 07/11 00:06 Discharged to home via wheelchair, with family. jb4 Condition: stable Discharge instructions given to patient, family, Instructed on discharge instructions, follow up and referral plans. medication usage, Demonstrated understanding of instructions, follow-up care, medications, Prescriptions given X 3. 00:09 Patient left the ED. jb4 Signatures: Dispatcher [employer] Hortencia Dougherty RN RN sv Anderson, Corey, MD MD cha Mickail, Joel, PA PA jmm Rivera, Mary mr Bryson, James, RN RN jb4 McGuire, Victoria vm Corrections: (The following items were deleted from the chart) 07/10 18:06 18:04 Resp 20bpm; Pulse Ox 97%; Temp 97.8F Oral; 65.77 kg; Height 6 ft. 2 in.; BMI: sv 18.6; sv
[2019-07-11 01:11] VITALS: TEMP 97.8
[2019-07-11 01:12] VITALS: O2SAT 100
[2019-07-11 01:18] VITALS: BP 124/67
== END 2019-07-11 00:09 | disposition home or self-care (01) ==
LOC: ER 17:54
DX: R51 Headache (principal); R11.0 Nausea; R53.1 Weakness; R10.819 Abdominal tenderness, unspecified site
CPT/HCPCS: 96361; 87070; 85025; 36415; 89050 ×2; 84157; 82945; 86403 ×6; 85652; 81003; 80053; 70450; 62270; 96375; 96374; 99285; J2765; J1200; J7030 ×2

== ENCOUNTER 2019-07-19 15:58 | Emergency (ER) | payer OTHER ==
[2019-07-19] MEDS ORDERED: PROMETHAZINE 25 MG/ML VIAL ONE (16:44)
[2019-07-19] MEDS ORDERED: NA CHLORIDE 0.9% 1,000 ML ONE (16:45)
[2019-07-19] MEDS ORDERED: FAMOTIDINE 20 MG/2 ML VIAL IV ONE (16:45)
[2019-07-19 17:44] LABS: Absolute Lymphocytes (CBC) 1.6 K/uL (0.7-4.9); Basophils % 0.4 % (0-1.3); Lymphocytes % 30.9 % (15.3-44.8)
[2019-07-19 17:48] LABS: ALT/SGPT 29 U/L (12-78); AST/SGOT 18 U/L (15-37); Albumin 3.6 g/dL (3.4-5.0); Alkaline Phosphatase 52 U/L (45-117); BUN Blood Urea Nitrogen 6 mg/dL (7-18); Bicarbonate 28 mmol/L (21-32); Bilirubin Direct 0.2 mg/dL (0-0.2); Bilirubin Total 0.6 mg/dL (0.2-1.0); Glucose Level 83 mg/dL (74-106); Lipase 92 U/L (73-393); Potassium 4.4 mmol/L (3.5-5.1); Protein, Total 7.1 g/dL (6.4-8.2); Sodium Level 129 mmol/L (136-145)
[2019-07-19 17:49] LABS: RBC Red Blood Cell Count 4.02 M/uL (4.33-5.43)
--- NOTE | 2019-07-19 18:07 | ER ---
Nurse's Notes [facility] [place] Name: Reji Rodrigez Age: 54 yrs Sex: Male : 1965 Arrival Date: 07/19/2019 Time: 16:00 Bed 8 Private MD: out of town, doctor Diagnosis: Gastritis, unspecified;Hypocalcemia;Dehydration Presentation: 07/19 16:23 Presenting complaint: Patient states: had an LP last week here in ER, was discharged iw home and was told to f/u with Dr. Thomas and Dr. Mejia, pt still had a headache and was dehydrated, [facility] , then had labs drawn on the , he is still having stomach burning, can't eat anything without pain, also has headache and kidney pain, feels dehydrated again. Transition of care: patient was not received from another setting of care. Onset of symptoms was July 17, 2019. Risk Assessment: Do you want to hurt yourself or someone else? Patient reports no desire to harm self or others. Initial Sepsis Screen: Does the patient meet any 2 criteria? No. Patient's initial sepsis screen is negative. Does the patient have a suspected source of infection? No. Patient's initial sepsis screen is negative. Care prior to arrival: None. 16:23 Method Of Arrival: Wheelchair iw 16:23 Acuity: TELLO 3 iw Historical: - Allergies: 16:30 "everything orally"; iw 16:30 Lyrica; iw 16:31 Codeine; iw 16:31 opiates; iw - Home Meds: 16:30 Lorazepam Intensol 2 mg/mL oral conc 2 times per day [Active]; iw - PMHx: 16:30 "mold toxicity"; Anxiety; c4-c7 fused, neck pain; epstine torres high a ccouple times; iw gastritis; Hepatitis; Hypothyroidism; lyme disease; - Immunization history:: Adult Immunizations unknown. - Ebola Screening: : Patient negative for fever greater than or equal to 101.5 degrees Fahrenheit, and additional compatible Ebola Virus Disease symptoms Patient denies exposure to infectious person Patient denies travel to an Ebola-affected area in the 21 days before illness onset No symptoms or risks identified at this time. - Family history:: not pertinent. - Social history:: Smoking status: unknown. - Hospitalizations: : No recent hospitalization is reported. Screenin:46 Abuse screen: Denies threats or abuse. Denies injuries from another. Nutritional iw screening: Had unintentional weight loss of 10 pounds or more. Tuberculosis screening: No symptoms or risk factors identified. Fall Risk IV access (20 points). Assessment: 16:44 General: Appears in no apparent distress. Behavior is calm, cooperative. General: iw Appears. General: Appears malnourished, Behavior is. Pain: Complains of pain in head and abdomen. Neuro: Level of Consciousness is awake, alert, obeys commands, Oriented to person, place, time, situation, Moves all extremities. Full function. Cardiovascular: Capillary refill < 3 seconds in bilateral fingers Patient's skin is warm and dry. Respiratory: Respiratory effort is even, unlabored, Respiratory pattern is regular, symmetrical. GI: Abdomen is non-distended, Bowel sounds present X 4 quads. Reports cramping, intolerance of food. : Denies burning with urination. Derm: Skin is intact, is healthy with good turgor. Musculoskeletal: Range of motion: intact in all extremities. 17:43 Reassessment: Patient appears in no apparent distress at this time. Patient and/or jl7 family updated on plan of care and expected duration. Pain level reassessed. Patient is alert, oriented x 3, equal unlabored respirations, skin warm/dry/pink. Patient states symptoms have improved. 18:24 Reassessment: pt will be discharged once medication is done infusing. Awaiting jl7 medication from the pharmacy. 19:10 General: Appears in no apparent distress. uncomfortable, Behavior is calm, cooperative. rr5 Pain: Complains of pain in head and abdomen. Neuro: Level of Consciousness is awake, alert, obeys commands, Oriented to person, place, time, situation, Reports headache. Cardiovascular: Capillary refill < 3 seconds Patient's skin is warm and dry. Respiratory: Airway is patent Respiratory effort is even, unlabored, Respiratory pattern is regular, symmetrical. GI: Abdomen is flat, non-distended, Reports cramping, intolerance of food. : Denies burning with urination. EENT: No signs and/or symptoms were reported regarding the EENT system. Derm: Skin is intact, Skin temperature is warm. Musculoskeletal: Circulation, motion, and sensation intact. Capillary refill < 3 seconds. 20:13 Reassessment: Patient appears in no apparent distress at this time. Patient is alert, rr5 oriented x 3, equal unlabored respirations, skin warm/dry/pink. discharge instruction given and explained without complaints made, verbalized undertsanding. Vital Signs: 16:31 BP 133 / 81; Pulse 53; Resp 16; Pulse Ox 100% on R/A; Weight 65.77 kg; iw 17:43 BP 106 / 70; Pulse 51; Resp 20 S; Pulse Ox 100% on R/A; jl7 19:12 BP 101 / 75; Pulse 50; Resp 18; Temp 97.5; Pulse Ox 100% ; rr5 20:12 BP 100 / 61; Pulse 52; Resp 16; Temp 98.0; Pulse Ox 100% on R/A; rr5 ED Course: 16:00 Patient arrived in ED. ag5 16:01 out of town, doctor is Private Physician. ag5 16:15 Werner Davidson MD is Attending Physician. rn 16:23 Nancy Jimenes RN is Primary Nurse. jl7 16:28 Triage completed. iw 16:31 Arm band placed on. iw 17:32 Initial lab(s) drawn, by me, sent to lab. Inserted saline lock: 20 gauge in right jl7 forearm, using aseptic technique. Blood collected. 17:43 Patient has correct armband on for positive identification. Placed in gown. Bed in low jl7 position. Call light in reach. Side rails up X2. Pulse ox on. NIBP on. Warm blanket given. 20:14 No provider procedures requiring assistance completed. IV discontinued, intact, rr5 bleeding controlled, No redness/swelling at site. Pressure dressing applied. Administered Medications: 17:25 Drug: NS 0.9% 1000 ml Route: IV; Rate: 1000 ml; Site: right forearm; jl7 19:00 Follow up: Response: No adverse reaction; IV Status: Completed infusion; IV Intake: rr5 1000ml 17:28 Drug: Pepcid 20 mg Route: IVP; Site: right forearm; jl7 17:45 Follow up: Response: No adverse reaction jl7 17:30 Drug: Phenergan 12.5 mg Route: IVP; Site: right forearm; jl7 17:45 Follow up: Response: No adverse reaction; Nausea is decreased jl7 19:09 Drug: Calcium Gluconate 1 grams Route: IVPB; Infused Over: 60 mins; Site: right forearm;rr5 20:14 Follow up: Response: No adverse reaction; IV Status: Completed infusion; IV Intake: rr5 100ml Intake: 19:00 IV: 1000ml; Total: 1000ml. rr5 20:14 IV: 100ml; Total: 1100ml. rr5 Outcome: 18:07 Discharge ordered by . rn 20:14 Discharged to home ambulatory. rr5 20:14 Condition: stable 20:14 Discharge instructions given to patient, Instructed on discharge instructions, follow up and referral plans. Demonstrated understanding of instructions, follow-up care. 20:25 Patient left the ED. rr5 Signatures: Dai Spencer RN RN iw Werner Davidson MD MD rn Leal, Jahala, RN RN jl7 Jigar Salgado RN RN rr5 Maddy Gardner ag5 Corrections: (The following items were deleted from the chart) 16:31 16:30 Allergies: "everything I take makes me nausous"; [facility]
--- NOTE | 2019-07-19 18:08 | EDPHYS ---
Physician Documentation [facility] Name: Reji Rodrigez Age: 54 yrs Sex: Male : 1965 Arrival Date: 07/19/2019 Time: 16:00 Bed 8 Private MD: out of town, doctor ED Physician Werner Davidson HPI: 07/19 16:39 This 54 yrs old Male presents to ER via Wheelchair with complaints of rn Headache, Abdominal Pain. 16:39 The patient presents with abdominal pain in the epigastric area. Onset: The rn symptoms/episode began/occurred at an unknown time. The symptoms do not radiate. Associated signs and symptoms: Pertinent positives: nausea. Modifying factors: The symptoms are alleviated by nothing, the symptoms are aggravated by food, touching the area. Severity of pain: At its worst the pain was mild in the emergency department the pain is unchanged. The patient has experienced similar episodes in the past, chronically. Reports chronic gastritis and headache, multiple ER visits in last month including here and [facility], and followed up with Dr. Thomas and his PCP. Told to f/u with GI. Had neg w/u here including LP last week, then went back to [facility] without further diagnosis. Back today because feels dehydrated and weak. Denies any new symptoms, reports can't take oral medication because of mast cell problem and his body cannot tolerate additives in medication. . Historical: - Allergies: 16:30 "everything orally"; iw 16:30 Lyrica; iw 16:31 Codeine; iw 16:31 opiates; iw - Home Meds: 16:30 Lorazepam Intensol 2 mg/mL oral conc 2 times per day [Active]; iw - PMHx: 16:30 "mold toxicity"; Anxiety; c4-c7 fused, neck pain; epstine torres high a ccouple times; iw gastritis; Hepatitis; Hypothyroidism; lyme disease; - Immunization history:: Adult Immunizations unknown. - Ebola Screening: : Patient negative for fever greater than or equal to 101.5 degrees Fahrenheit, and additional compatible Ebola Virus Disease symptoms Patient denies exposure to infectious person Patient denies travel to an Ebola-affected area in the 21 days before illness onset No symptoms or risks identified at this time. - Family history:: not pertinent. - Social history:: Smoking status: unknown. - Hospitalizations: : No recent hospitalization is reported. ROS: 16:39 Constitutional: Negative for fever, chills, and weight loss, Eyes: Negative for injury, rn pain, redness, and discharge, Neck: Negative for injury, pain, and swelling, Cardiovascular: Negative for chest pain, palpitations, and edema, Respiratory: Negative for shortness of breath, cough, wheezing, and pleuritic chest pain, Abdomen/GI: Negative for vomiting, diarrhea, and constipation, MS/Extremity: Negative for injury and deformity, Skin: Negative for injury, rash, and discoloration, Neuro: Negative for numbness, tingling, and seizure. Exam: 16:39 Constitutional: Thin male, no acute distress Head/Face: Normocephalic, atraumatic. rn testing: Dry MM Cardiovascular: Regular rhythm, bradycardic Respiratory: No increased work of breathing, no retractions or nasal flaring. Speaking full sentences. Abdomen/GI: Scaphoid abdomen, + mild tenderness epigastric region. MS/ Extremity: Pulses equal, no cyanosis. Neurovascular intact. Full, normal range of motion. Equal circumference. Neuro: Awake and alert, GCS 15, oriented to person, place, time, and situation. Cranial nerves II-XII grossly intact. Motor strength 5/5 in all extremities. Sensory grossly intact. Cerebellar exam normal. Vital Signs: 16:31 BP 133 / 81; Pulse 53; Resp 16; Pulse Ox 100% on R/A; Weight 65.77 kg; iw 17:43 BP 106 / 70; Pulse 51; Resp 20 S; Pulse Ox 100% on R/A; jl7 19:12 BP 101 / 75; Pulse 50; Resp 18; Temp 97.5; Pulse Ox 100% ; rr5 20:12 BP 100 / 61; Pulse 52; Resp 16; Temp 98.0; Pulse Ox 100% on R/A; rr5 MDM: 16:15 Patient medically screened. rn 18:05 Differential diagnosis: gastritis, gastroesophageal reflux disease, non-specific abd rn pain, Peptic Ulcer Disease, chronic pain. Data reviewed: vital signs, nurses notes, diagnostic data from outside facility, old medical records, lab test result(s), and as a result, I will discharge patient. Counseling: I had a detailed discussion with the patient and/or guardian regarding: the historical points, exam findings, and any diagnostic results supporting the discharge/admit diagnosis, lab results, the need for outpatient follow up, to return to the emergency department if symptoms worsen or persist or if there are any questions or concerns that arise at home. Response to treatment: the patient's symptoms have mildly improved after treatment, and as a result, I will discharge patient. Special discussion: I discussed with the patient/guardian in detail that at this point there is no indication for admission to the hospital. It is understood, however, that if the symptoms persist or worsen the patient needs to return immediately for re-evaluation. 07/19 16:31 Order name: CBC with Diff; Complete Time: 17:51 rn 07/19 16:31 Order name: Basic Metabolic Panel; Complete Time: 17:51 rn 07/19 16:31 Order name: LFT's; Complete Time: 17:51 rn 07/19 16:31 Order name: Lipase; Complete Time: 17:51 rn 07/19 16:31 Order name: Magnesium; Complete Time: 17:51 rn 07/19 16:31 Order name: IV Start; Complete Time: 17:35 rn Administered Medications: 17:25 Drug: NS 0.9% 1000 ml Route: IV; Rate: 1000 ml; Site: right forearm; jl7 19:00 Follow up: Response: No adverse reaction; IV Status: Completed infusion; IV Intake: rr5 1000ml 17:28 Drug: Pepcid 20 mg Route: IVP; Site: right forearm; jl7 17:45 Follow up: Response: No adverse reaction jl7 17:30 Drug: Phenergan 12.5 mg Route: IVP; Site: right forearm; jl7 17:45 Follow up: Response: No adverse reaction; Nausea is decreased jl7 19:09 Drug: Calcium Gluconate 1 grams Route: IVPB; Infused Over: 60 mins; Site: right forearm;rr5 20:14 Follow up: Response: No adverse reaction; IV Status: Completed infusion; IV Intake: rr5 100ml Disposition: 07/19/19 18:07 Discharged to Home. Impression: Gastritis, unspecified, Hypocalcemia, Dehydration. - Condition is Stable. - Discharge Instructions: Dehydration, Adult, Gastritis, Adult, Hyponatremia, Hypocalcemia, Adult. - Medication Reconciliation Form, Thank You Letter, Antibiotic Education, Prescription Opioid Use form. - Follow up: Private Physician; When: As needed; Reason: Recheck today's complaints, Re-evaluation by your physician. - Problem is new. - Symptoms have improved. Signatures: Dispatcher [employer] Dai Tamayo, RN RN iw Werner Davidson MD MD rn Leal, Jahala, RN RN jl7 Jigar Salgado RN RN rr5 Corrections: (The following items were deleted from the chart) 16:31 16:30 Allergies: "everything I take makes me nausous"; [facility] 20:25 18:07 07/19/2019 18:07 Discharged to Home. Impression: Gastritis, unspecified; rr5 Hypocalcemia; Dehydration. Condition is Stable. Forms are Medication Reconciliation Form, Thank You Letter, Antibiotic Education, Prescription Opioid Use. Follow up: Private Physician; When: As needed; Reason: Recheck today's complaints, Re-evaluation by your physician. Problem is new. Symptoms have improved. rn
[2019-07-19] MEDS ORDERED: CALCIUM GLUCONATE 1gm/100 ML NS (4.65 mEq/100mL) IV ONE ×2 (19:00)
[2019-07-19 22:20] VITALS: O2SAT 100
[2019-07-19 22:23] VITALS: BP 100/61; TEMP 98
== END 2019-07-19 20:25 | disposition home or self-care (01) ==
LOC: ER 15:58
DX: K29.70 Gastritis, unspecified, without bleeding (principal); E83.51 Hypocalcemia; E86.0 Dehydration; Z88.6 Allergy status to analgesic agent; Z88.8 Allergy status to other drugs, medicaments and biological substances
CPT/HCPCS: 96365; 96361; 85025; 80048; 36415; 83735; 80076; 83690; 96375; 99284; J2550; J0610; J7030

== ENCOUNTER 2019-08-14 16:34 | Emergency (ER) | payer OTHER ==
--- OUTSIDE RECORDS SUMMARY | 2019-08-14 16:36 | XMS REPORT ---
:1965 [facility] Address [address] [place] [address] Care Team Providers Name Role Phone Unavailable Unavailable Unavailable Problems This patient has no known problems. Allergies, Adverse Reactions, Alerts This patient has no known allergies or adverse reactions. Medications This patient has no known medications.
[2019-08-14 19:06] LABS: Absolute Lymphocytes (CBC) 1.3 K/uL (0.7-4.9); Basophils % 0.6 % (0-1.3); Hematocrit 39.4 % (39.6-49.0); Lymphocytes % 25.3 % (15.3-44.8); MPV 7.9 fL (7.6-11.3); RBC Red Blood Cell Count 4.18 M/uL (4.33-5.43)
[2019-08-14 19:24] LABS: Protime INR 1.2
[2019-08-14] MEDS ORDERED: METOCLOPRAMIDE 10 MG/2mL INJ ONE (19:34)
[2019-08-14] MEDS ORDERED: DIPHENHYDRAMINE 50 MG/ML VIAL ONE (19:34)
[2019-08-14] MEDS ORDERED: NA CHLORIDE 0.9% 1,000 ML ONE (19:34)
[2019-08-14] MEDS ORDERED: FAMOTIDINE 20 MG/2 ML VIAL IV ONE (19:34)
[2019-08-14 20:05] LABS: ALT/SGPT 68 U/L (12-78); AST/SGOT 44 U/L (15-37); Albumin 3.8 g/dL (3.4-5.0); Alkaline Phosphatase 54 U/L (45-117); BUN Blood Urea Nitrogen 5 mg/dL (7-18); Bicarbonate 28 mmol/L (21-32); Bilirubin Direct 0.2 mg/dL (0-0.2); Bilirubin Total 0.9 mg/dL (0.2-1.0); Glucose Level 86 mg/dL (74-106); Magnesium 1.9 mg/dL (1.8-2.4); NT PRO-BNP 85 pg/mL (<125); Protein, Total 7.3 g/dL (6.4-8.2); Sodium Level 132 mmol/L (136-145); Troponin (Emerg Dept Use Only) < 0.02 ng/mL (0.0-0.045)
--- NOTE | 2019-08-14 20:39 | RAD REPORT ---
EXAM DESCRIPTION: RAD - Chest Single View - 08/14/2019 7:18 pm CLINICAL HISTORY: Chest pain, right upper quadrant pain COMPARISON: April 17, 2019 TECHNIQUE: AP portable chest image was obtained 1900 hours . FINDINGS: No acute lung parenchymal process. Heart, vasculature and lung markings are similar to com parison. Trachea is midline. No measurable pleural effusion and no pneumothorax. No acute bony abnorm ality seen. No acute aortic findings suspected. IMPRESSION: No acute cardiopulmonary process. No significant change from comparison.
--- NOTE | 2019-08-14 20:49 | RAD REPORT ---
EXAM DESCRIPTION: CT - Abdomen Pelvis Wo Contrast - 08/14/2019 8:34 pm CLINICAL HISTORY: abdominal pain COMPARISON: [facility] Protocol dated 01/10/2019; Abdomen Pelvis W Contrast dated 05/05/2018; Abdomen P aria W Contrast dated 12/24/2017 TECHNIQUE: Axial [address] imaging of the abdomen and pelvis was performed without IV contrast. No IV contrast was given because of allergy, abnormal renal function, patient refusal or physician re quest. No oral contrast administered. All CT scans are performed using dose optimization technique as appropriate and may include automated exposure control or mA/KV adjustment according to patient size. FINDINGS: No suspicious findings in the lung bases. Liver and spleen show no suspicious findings. Pancreas is grossly normal. Assessment is limited in th e absence of oral and IV contrast. This limitation is further exacerbated by the paucity of intra- ab dominal fat. Cholecystectomy clips are present. No biliary tree dilatation. No hydronephrosis or suspicious renal mass. A 4.8 centimeter right renal cyst is present. Fullness se en in each pelvis similar to comparison. No significant adrenal finding. Isodense renal masses and py elonephritis cannot be excluded in the absence of IV contrast. Urinary bladder is mostly contracted. Right-sided pelvic calcification pattern is similar to comparison. No dilated bowel loops or bowel wall thickening. No free air or pneumatosis. There is increasing sof t tissue around the tip of the coccyx. No bone destruction seen. No hernia, mass or bulky lymphadenop athy. No suspicious bony findings. IMPRESSION: No hydronephrosis, obstructing calculus or acute finding identifiable. Right-sided pe lvic calcifications are similar to the December 2018. Moderate stool volume is seen throughout the colon. An acute GI process is not identifiable. Increasing soft tissue attenuation around the posterior and right lateral margin of the coccygeal seg ments. Correlation is needed with any physical exam findings of a developing decubitus ulcer or soft tissue infection. Exam is limited by the absence of oral and IV contrast and further limited by the very small amount o f intraperitoneal fat. Full assessment is limited is the absence of IV contrast.
[2019-08-14] MEDS ORDERED: LORazepam 2 MG/ML VIAL ONE (23:52)
--- NOTE | 2019-08-15 01:35 | ER ---
Nurse's Notes [facility] Name: Reji Rodrigez Age: 54 yrs Sex: Male : 1965 Arrival Date: 08/14/2019 Time: 16:36 Bed 27 Private MD: Diagnosis: Chest pain, unspecified;Generalized abdominal pain Presentation: 08/14 16:46 Presenting complaint: Patient states: RUQ pain radiating to back and chest pain that aa5 began 2 days ago. Pt states "my heart rate has been low 40s and high 30s". Transition of care: patient was not received from another setting of care. Onset of symptoms was July 2019. Risk Assessment: Do you want to hurt yourself or someone else? Patient reports no desire to harm self or others. Care prior to arrival: None. 16:46 Acuity: TELLO 3 aa5 16:46 Method Of Arrival: Wheelchair aa5 18:50 Initial Sepsis Screen: Does the patient meet any 2 criteria? No. Patient's initial ca1 sepsis screen is negative. Does the patient have a suspected source of infection? No. Patient's initial sepsis screen is negative. 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 - Social history:: Smoking status: Patient/guardian denies using tobacco. - Ebola Screening: : No symptoms or risks identified at this time. Screenin:25 Abuse screen: Denies threats or abuse. Denies injuries from another. Nutritional ca1 screening: No deficits noted. Tuberculosis screening: No symptoms or risk factors identified. Fall Risk IV access (20 points). Gait- Weak (10 pts.). Total Olea Fall Scale indicates Low Risk Score (25-44 pts). Fall prevention measures have been instituted. Side Rails Up X 2 Family Present and informed to notify staff if they need to leave bedside As available Patient and Family Educated on Fall Prevention Program and strategies. Assessment: 18:25 General: Appears in no apparent distress. uncomfortable, ill, slender, Behavior is ca1 calm, cooperative, appropriate for age. Pain: Complains of pain in mid-sternal area Pain radiates to back and anterior aspect of right upper chest Pain currently is 10 out of 10 on a pain scale. Quality of pain is described as sharp, Pain began 2-3 days ago. Is continuous. Neuro: Level of Consciousness is awake, alert, obeys commands, Oriented to person, place, time, situation. Cardiovascular: Heart tones S1 S2 present Capillary refill < 3 seconds Patient's skin is warm and dry. Rhythm is sinus rhythm. Respiratory: Airway is patent Respiratory effort is even, unlabored, Respiratory pattern is regular, symmetrical, Breath sounds are clear bilaterally. GI: Abdomen is flat, non-distended, Bowel sounds present X 4 quads. Abd is soft and non tender X 4 quads. : No deficits noted. No signs and/or symptoms were reported regarding the genitourinary system. EENT: No deficits noted. No signs and/or symptoms were reported regarding the EENT system. Derm: Skin is intact, is healthy with good turgor, Skin is pink, warm \\T\\ dry. Musculoskeletal: Circulation, motion, and sensation intact. Capillary refill < 3 seconds, Range of motion: intact in all extremities. 19:40 Reassessment: Patient and/or family updated on plan of care and expected duration. Pain ch2 level reassessed. Patient is alert, oriented x 3, equal unlabored respirations, skin warm/dry/pink. 19:40 General: Appears uncomfortable, Behavior is calm, cooperative, Reports fatigue for 1-2 ch2 days. Pain: Complains of pain in chest and back and anterior aspect of right upper chest and mid-sternal area Aggravated by. Neuro: Level of Consciousness is awake, alert, obeys commands, Oriented to person, place, time, situation, Reports weakness in right leg and left leg. Cardiovascular: Heart tones S1 S2 present Patient's skin is warm and dry. Rhythm is sinus bradycardia. Respiratory: Respiratory effort is even, unlabored, Respiratory pattern is regular, symmetrical, Breath sounds are clear. GI: Abdomen is flat, non-distended, Bowel sounds present X 4 quads. : No signs and/or symptoms were reported regarding the genitourinary system. Urine is clear, Last void at 19:35. EENT: No deficits noted. No signs and/or symptoms were reported regarding the EENT system. Musculoskeletal: Reports weakness in right leg and left leg pt states has been getting around with wheelchair, can transfer to bed and toilet. 20:30 Reassessment: Patient and/or family updated on plan of care and expected duration. Pain ch2 level reassessed. Patient is alert, oriented x 3, equal unlabored respirations, skin warm/dry/pink. 21:45 Reassessment: Patient appears in no apparent distress at this time. No changes from ch2 previously documented assessment. Patient and/or family updated on plan of care and expected duration. Pain level reassessed. Patient is alert, oriented x 3, equal unlabored respirations, skin warm/dry/pink. 21:45 Pain: Complains of pain in back and anterior aspect of right upper chest and ch2 mid-sternal area and chest Pain currently is 6 out of 10 on a pain scale. Quality of pain is described as aching, Pain began Is continuous. 22:00 Reassessment: Patient appears in no apparent distress at this time. pt with blanket and ch2 jacket covering face. 23:15 Reassessment: physician in room. ch2 08/15 01:00 Reassessment: Patient and/or family updated on plan of care and expected duration. Pain ch2 level reassessed. pt made aware of discharge, on phone with . 02:00 Reassessment: Patient appears in no apparent distress at this time. No changes from ch2 previously documented assessment. Patient is alert, oriented x 3, equal unlabored respirations, skin warm/dry/pink. Reassessment: gathering personal belongings to go home. General: Appears in no apparent distress. Behavior is calm, cooperative. Vital Signs: 08/14 16:47 BP 125 / 81; Pulse 55; Resp 16 S; Temp 98.2(O); Pulse Ox 100% on R/A; Weight 65.77 kg aa5 (R); Height 6 ft. 2 in. (187.96 cm) (R); Pain 10/10; 18:50 BP 106 / 74; Pulse 47; Resp 16 S; Pulse Ox 100% on R/A; ca1 19:15 BP 124 / 84; Pulse 44; Resp 16; Temp 98.1; Pulse Ox 100% ; ch2 20:15 BP 120 / 68; Pulse 43; Resp 16; Temp 98.4; Pulse Ox 100% ; ch2 21:00 BP 109 / 75; Pulse 43; Resp 17; Pulse Ox 100% ; ch2 21:50 BP 94 / 78; Pulse 44; Resp 17; Pulse Ox 98% ; ch2 22:45 BP 105 / 79; Pulse 44; Resp 18; Pulse Ox 100% ; ch2 23:30 BP 114 / 88; Pulse 51; Resp 17; Pulse Ox 100% ; ch2 08/15 00:45 BP 114 / 77; Pulse 43; Resp 18; Pulse Ox 100% ; ch2 08/14 16:47 Body Mass Index 18.62 (65.77 kg, 187.96 cm) aa5 Vitals: 08/14 22:45 Cardiac Rhythm Assessment Regular Sinus niki. ch2 Kristie Coma Score: 22:45 Eye Response: spontaneous(4). Verbal Response: oriented(5). Motor Response: obeys ch2 commands(6). Total: 15. ED Course: 16:36 Patient arrived in ED. mr 16:45 Arm band placed on. aa5 16:46 Triage completed. aa5 16:51 EKG completed in triage. Results shown to MD. aa5 17:06 EKG done, by ED staff, reviewed by Beck Simental MD. jb1 18:25 Phuong Lim, RN is Primary Nurse. ca1 18:25 Patient has correct armband on for positive identification. Placed in gown. Bed in low ca1 position. Call light in reach. Side rails up X 1. hall monitor on. Pulse ox on. NIBP on. Warm blanket given. 18:25 No provider procedures requiring assistance completed. Initial lab(s) drawn, by sc, ca1 sent to lab. Inserted saline lock: 22 gauge in right antecubital area, using aseptic technique. Blood collected. Patient maintains SpO2 saturation greater than 95% on room air. 18:34 [facility] 18:34 Beck Simental MD is Attending Physician. [facility] 08/15 02:46 IV discontinued, intact, bleeding controlled, No redness/swelling at site. Pressure ch2 dressing applied. Administered Medications: 08/14 19:42 Drug: NS 0.9% 1000 ml Route: IV; Rate: 1 bolus; Site: right antecubital; ch2 19:42 Drug: Reglan 10 mg Route: IVP; Site: right antecubital; ch2 19:42 Drug: Pepcid 20 mg Route: IVP; Site: right antecubital; ch2 19:42 Drug: diphenhydrAMINE 12.5 mg Route: IVP; Site: right antecubital; ch2 23:58 Drug: Ativan 0.5 mg Route: IVP; Site: right antecubital; ch2 08/15 00:45 Follow up: Response: No adverse reaction; Anxiety decreased ch2 Output: 08/14 23:30 Urine: 700ml (Voided); Total: 700ml. ch2 Outcome: 08/15 01:35 Discharge ordered by . [facility] 02:45 Discharged to home via wheelchair, with family. ch2 02:45 Condition: good 02:45 Discharge instructions given to patient, Instructed on discharge instructions, follow up and referral plans. Demonstrated understanding of instructions, follow-up care. 02:47 Patient left the ED. ch2 Signatures: Reji Quigley Joel, PA PA [facility] Helen Granger mr RevelesChristelle acharya, RN RN aa5 Priscilla Mckeon, NADYA RN ch2 Phuong Lim RN RN ca1 Corrections: (The following items were deleted from the chart) 08/14 19:40 18:30 BP 106 / 74; Pulse 47bpm; Resp 16bpm; Spontaneous; Pulse Ox 100% RA; ca1 ca1 08/15 01:14 08/14 20:15 BP 109 / 75; Pulse 43bpm; Resp 17bpm; Pulse Ox 100%; ch2 ch2
--- NOTE | 2019-08-15 01:36 | EDPHYS ---
Physician Documentation [facility] Name: Reji Rodrigez Age: 54 yrs Sex: Male : 1965 Arrival Date: 08/14/2019 Time: 16:36 Bed 27 Private MD: ED Physician Beck Simental HPI: 08/14 18:25 This 54 yrs old Male presents to ER via Wheelchair with complaints of Chest jmm Pain. 18:25 The patient or guardian reports chest pain that is located primarily in the substernal [facility] area. Onset: gradually, 2 day(s) ago. The pain radiates to Associated signs and symptoms: Pertinent positives: abdominal pain, headache. The chest pain is described as aching. This is a 54 year old male with a history of gastritis, that presents to the ED with complaints of epigastric pain which has been chronic with chest pain which developed approx 2 days ago. Patient states he has had nightmares and is concerned that his heart rate is too low. Patient states he is normally in the 50's but has dropped down into the 40's. Patient states he takes ativan to sleep but believes it may be worsening his symptoms. . 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 - Social history:: Smoking status: Patient/guardian denies using tobacco. - Ebola Screening: : No symptoms or risks identified at this time. ROS: 18:25 Constitutional: Negative for fever, chills, and weight loss. jmm 18:25 Respiratory: Negative for shortness of breath, cough, wheezing, and pleuritic chest pain. 18:25 Cardiovascular: Positive for chest pain. 18:25 Abdomen/GI: Positive for abdominal pain. 18:25 All other systems are negative. Exam: 18:25 Constitutional: This is a well developed, well nourished patient who is awake, alert, jmm and in no acute distress. Head/Face: atraumatic. Eyes: EOMI, no conjunctival erythema appreciated ENT: Moist Mucus Membranes Neck: Trachea midline, Supple Chest/axilla: Normal chest wall appearance and motion. 18:25 Back: Normal ROM Skin: General appearance color normal MS/ Extremity: Moves all extremities, no obvious deformities appreciated, no edema noted to the lower extremities Neuro: Awake and alert, normal gait Psych: Behavior is normal, Mood is normal, Patient is cooperative and pleasant 18:25 Cardiovascular: Rate: bradycardic, Rhythm: regular, Pulses: no pulse deficits are appreciated. 18:25 Respiratory: the patient does not display signs of respiratory distress, Respirations: normal, Breath sounds: are clear throughout. 18:25 Abdomen/GI: Inspection: abdomen appears normal, Bowel sounds: normal, Palpation: abdomen is soft and non-tender, in all quadrants. Vital Signs: 16:47 BP 125 / 81; Pulse 55; Resp 16 S; Temp 98.2(O); Pulse Ox 100% on R/A; Weight 65.77 kg aa5 (R); Height 6 ft. 2 in. (187.96 cm) (R); Pain 10/10; 18:50 BP 106 / 74; Pulse 47; Resp 16 S; Pulse Ox 100% on R/A; ca1 19:15 BP 124 / 84; Pulse 44; Resp 16; Temp 98.1; Pulse Ox 100% ; ch2 20:15 BP 120 / 68; Pulse 43; Resp 16; Temp 98.4; Pulse Ox 100% ; ch2 21:00 BP 109 / 75; Pulse 43; Resp 17; Pulse Ox 100% ; ch2 21:50 BP 94 / 78; Pulse 44; Resp 17; Pulse Ox 98% ; ch2 22:45 BP 105 / 79; Pulse 44; Resp 18; Pulse Ox 100% ; ch2 23:30 BP 114 / 88; Pulse 51; Resp 17; Pulse Ox 100% ; ch2 08/15 00:45 BP 114 / 77; Pulse 43; Resp 18; Pulse Ox 100% ; ch2 08/14 16:47 Body Mass Index 18.62 (65.77 kg, 187.96 cm) aa5 Kristie Coma Score: 08/14 22:45 Eye Response: spontaneous(4). Verbal Response: oriented(5). Motor Response: obeys ch2 commands(6). Total: 15. MDM: 19:04 Patient medically screened. [facility] 11/30 01:33 Data reviewed: vital signs, nurses notes. Counseling: I had a detailed discussion with [facility] the patient and/or guardian regarding: the historical points, exam findings, and any diagnostic results supporting the discharge/admit diagnosis, lab results, radiology results, the need for outpatient follow up, to return to the emergency department if symptoms worsen or persist or if there are any questions or concerns that arise at home. ED course: HEART SCORE = 2. Patient advised to follow up with cardio and GI for reevaluation. Patient understood and agrees with the plan of care. . 08/14 18:25 Order name: Basic Metabolic Panel ca1 08/14 18:25 Order name: CBC with Diff ca1 08/14 18:25 Order name: LFT's ca1 08/14 18:25 Order name: Magnesium ca1 08/14 18:25 Order name: NT PRO-BNP ca1 08/14 18:25 Order name: PT-INR [facility] 08/14 18:25 Order name: Troponin (emerg Dept Use Only) [facility] 08/14 19:20 Order name: CBC with Automated Diff; Complete Time: 19:27 EDWA 08/14 19:25 Order name: Protime (+INR); Complete Time: 19:27 EDWA 08/14 20:05 Order name: Basic Metabolic Panel; Complete Time: 20:06 [facility] 08/14 20:05 Order name: Liver (Hepatic) Function; Complete Time: 20:06 [facility] 08/14 20:05 Order name: Troponin (Emerg Dept Use Only); Complete Time: 20:06 [facility] 08/14 20:05 Order name: NT PRO-BNP; Complete Time: 20:06 [facility] 08/14 20:05 Order name: Magnesium; Complete Time: 20:06 [facility] 08/14 18:25 Order name: XRAY Chest (1 view) ca1 08/14 18:25 Order name: EKG; Complete Time: 18:26 [facility] 08/14 18:25 Order name: Cardiac monitoring; Complete Time: 19:04 [facility] 08/14 18:25 Order name: EKG - Nurse/Tech; Complete Time: 19:05 [facility] 08/14 18:25 Order name: IV Saline Lock; Complete Time: 19:05 [facility] 08/14 18:25 Order name: Labs collected and sent; Complete Time: 19:05 ca1 08/14 20:07 Order name: CT Abd/Pelvis - IV Contrast Only [facility] 08/14 20:42 Order name: RAD; Complete Time: 21:00 EDMS 08/14 20:51 Order name: CT; Complete Time: 21:00 EDMS 08/14 23:47 Order name: Troponin (emerg Dept Use Only) [facility] 08/15 01:27 Order name: Troponin (Emerg Dept Use Only); Complete Time: 01:27 EDWA 08/14 18:25 Order name: O2 Per Protocol; Complete Time: 19:05 ca1 08/14 18:25 Order name: O2 Sat Monitoring; Complete Time: 19:05 ca1 Administered Medications: 08/14 19:42 Drug: NS 0.9% 1000 ml Route: IV; Rate: 1 bolus; Site: right antecubital; ch2 19:42 Drug: Reglan 10 mg Route: IVP; Site: right antecubital; ch2 19:42 Drug: Pepcid 20 mg Route: IVP; Site: right antecubital; ch2 19:42 Drug: diphenhydrAMINE 12.5 mg Route: IVP; Site: right antecubital; ch2 23:58 Drug: Ativan 0.5 mg Route: IVP; Site: right antecubital; ch2 08/15 00:45 Follow up: Response: No adverse reaction; Anxiety decreased ch2 Disposition: 08/15/19 01:35 Discharged to Home. Impression: Chest pain, unspecified, Generalized abdominal pain. - Condition is Stable. - Discharge Instructions: Abdominal Pain, Adult, Nonspecific Chest Pain. - Medication Reconciliation Form, Thank You Letter, Antibiotic Education, Prescription Opioid Use form. - Follow up: Private Physician; When: 2 - 3 days; Reason: Recheck today's complaints, Continuance of care, Re-evaluation by your physician. Addendum: 08/17/2019 10:20 Co-signature as Attending Physician, Beck Simental MD I agree with the assessment and k dr plan of care. Signatures: Dispatcher [employer] EDBeck Barahona MD MD kdr Mickail, Joel, PA PA jmm Calderon, Audri RN RN aa5 Priscilla Mckeon RN RN ch2 Phuong Lim RN RN ca1 Corrections: (The following items were deleted from the chart) 08/15 02:47 01:35 08/15/2019 01:35 Discharged to Home. Impression: Chest pain, unspecified; ch2 Generalized abdominal pain. Condition is Stable. Forms are Medication Reconciliation Form, Thank You Letter, Antibiotic Education, Prescription Opioid Use. Follow up: Private Physician; When: 2 - 3 days; Reason: Recheck today's complaints, Continuance of care, Re-evaluation by your physician. inna
--- NOTE | 2019-08-15 08:24 | EKG ---
Test Date: 2019-08-14 Test Time: 16:50:23 Concrete Boom Pump Operator: ALLEY MEASUREMENT RESULTS: Intervals: Rate: 55 [place]: 110 QRSD: 100 QT: 426 QTc: 407 [place]: P: -11 [place]: 110 QRS: 76 T: 56 INTERPRETIVE STATEMENTS: Sinus bradycardia with short [place] Otherwise normal ECG Compared to ECG 04/17/2019 17:42:02 Short [place] interval now present Electronically Signed On 08-15-19 08:23:49 CAMP HEAD COUNSELOR by Eduardo Parrish
[2019-08-15 09:14] VITALS: TEMP 98.4
[2019-08-15 09:42] VITALS: O2SAT 100
[2019-08-15 09:45] VITALS: BP 114/77
== END 2019-08-15 02:47 | disposition home or self-care (01) ==
LOC: ER 16:34
DX: R10.84 Generalized abdominal pain (principal); Z88.5 Allergy status to narcotic agent; Z88.8 Allergy status to other drugs, medicaments and biological substances
CPT/HCPCS: 93005; 85025; 80048; 36415; 83735; 85610; 80076; 84484 ×2; 83880; 74176; 71045; 96375; 96374; 99285; J2765; J1200; J7030

== ENCOUNTER 2019-09-07 16:49 | Emergency (ER) | payer OTHER ==
--- OUTSIDE RECORDS SUMMARY | 2019-09-07 16:51 | XMS REPORT ---
:1965 [facility] Address [address] [place] [address] Care Team Providers Name Role Phone Unavailable Unavailable Unavailable Problems This patient has no known problems. Allergies, Adverse Reactions, Alerts This patient has no known allergies or adverse reactions. Medications This patient has no known medications.
[2019-09-07] MEDS ORDERED: KETOROLAC 30 MG/ML INJ ONE (17:26)
[2019-09-07] MEDS ORDERED: NA CHLORIDE 0.9% 1,000 ML ONE ×2 (17:26→23:11)
[2019-09-07 17:46] LABS: Protime INR 1.19
[2019-09-07 17:48] LABS: Absolute Lymphocytes (CBC) 1.4 K/uL (0.7-4.9); Basophils % 0.7 % (0-1.3); Hematocrit 39.6 % (39.6-49.0); Lymphocytes % 33.2 % (15.3-44.8); RBC Red Blood Cell Count 4.18 M/uL (4.33-5.43)
--- NOTE | 2019-09-07 17:56 | RAD REPORT ---
EXAM DESCRIPTION: RAD - Chest Single View - 09/07/2019 5:27 pm CLINICAL HISTORY: Congestion, mid sternal chest pain COMPARISON: August 14 TECHNIQUE: AP portable chest image was obtained 1714 hours . FINDINGS: No peripheral mass consolidation. Interstitial pattern is not substantially different from comparison. Trachea is midline. Heart and vasculature are normal. No measurable pleural effusion and no pneumothorax. No acute bony abnormality seen. No acute aortic findings suspected. IMPRESSION: No acute cardiopulmonary process. No significant interval change.
[2019-09-07 18:03] LABS: ALT/SGPT 34 U/L (12-78); AST/SGOT 20 U/L (15-37); Albumin 3.7 g/dL (3.4-5.0); Alkaline Phosphatase 51 U/L (45-117); BUN Blood Urea Nitrogen 4 mg/dL (7-18); Bicarbonate 30 mmol/L (21-32); Bilirubin Direct 0.2 mg/dL (0-0.2); Bilirubin Total 0.8 mg/dL (0.2-1.0); Glucose Level 91 mg/dL (74-106); Magnesium 2.1 mg/dL (1.8-2.4); NT PRO-BNP 91 pg/mL (<125); Protein, Total 6.7 g/dL (6.4-8.2); Sodium Level 131 mmol/L (136-145); Troponin (Emerg Dept Use Only) < 0.02 ng/mL (0.0-0.045)
[2019-09-07] MEDS ORDERED: LORazepam 2 MG/ML VIAL ONE (20:14)
[2019-09-07] MEDS ORDERED: DIPHENHYDRAMINE 50 MG/ML VIAL ONE (20:14)
--- NOTE | 2019-09-07 20:47 | EKG ---
Test Date: 2019-09-07 Test Time: 19:17:21 Aircraft Systems Repairer: LISA MEASUREMENT RESULTS: Intervals: Rate: 42 WI: 140 QRSD: 92 QT: 494 QTc: 412 [place]: P: 44 WI: 140 QRS: 73 T: 62 INTERPRETIVE STATEMENTS: Marked sinus bradycardia Abnormal ECG Compared to ECG 08/14/2019 16:50:23 Short [place] interval no longer present Electronically Signed On 09-07-19 20:46:36 ENTERPRISE RESOURCE PLANNER by Harrison Ayoub
--- NOTE | 2019-09-07 22:11 | EDPHYS ---
Physician Documentation [facility] Name: Reji Rodrigez Age: 54 yrs Sex: Male : 1965 Arrival Date: 09/07/2019 Time: 16:50 Bed 6 Private MD: ED Physician Keturah Salas HPI: 09/07 18:10 This 54 yrs old Male presents to ER via Wheelchair with complaints of Chest ma2 Pain. 18:10 The patient or guardian reports chest pain that is located primarily in the epigastric ma2 . Onset: gradually, 1 hour(s) ago. Associated signs and symptoms: Pertinent negatives: abdominal pain, lower extremity swelling, nausea, syncope, vomiting. Severity of pain: At its worst the pain was mild in the emergency department the pain is unchanged. The patient has not experienced similar symptoms in the past. 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 - Social history:: Smoking status: Patient/guardian denies using tobacco, Patient/guardian denies using alcohol, street drugs, The patient lives with family. - Ebola Screening: : No symptoms or risks identified at this time. - Family history:: not pertinent. ROS: 18:10 Constitutional: Negative for fever, chills, and weight loss. ma2 18:10 All other systems are negative. Exam: 18:10 Constitutional: This is a well developed, well nourished patient who is awake, alert, ma2 and in no acute distress. Chest/axilla: Normal chest wall appearance and motion. Nontender with no deformity. No lesions are appreciated. Cardiovascular: Regular rate and rhythm with a normal S1 and S2. No gallops, murmurs, or rubs. Normal PMI, no JVD. No pulse deficits. Respiratory: Lungs have equal breath sounds bilaterally, clear to auscultation and percussion. No rales, rhonchi or wheezes noted. No increased work of breathing, no retractions or nasal flaring. Abdomen/GI: Soft, non-tender, with normal bowel sounds. No distension or tympany. No guarding or rebound. No evidence of tenderness throughout. Vital Signs: 16:59 BP 125 / 84; Pulse 52; Resp 24; Pulse Ox 100% ; Weight 65.77 kg; Height 6 ft. 2 in. sv (187.96 cm); Pain 10/10; 17:42 Temp 97.2; sg 17:42 BP 122 / 70; Pulse 47; Resp 20; Pulse Ox 100% on R/A; sg 19:30 BP 131 / 83; Pulse 47; Resp 15; Pulse Ox 100% on R/A; lp1 20:30 BP 133 / 90; Pulse 44; Resp 13; Pulse Ox 100% on R/A; Pain 8/10; lp1 21:15 BP 121 / 83; Pulse 43; Resp 16; Pulse Ox 100% on R/A; lp1 22:00 BP 115 / 77; Pulse 45; Resp 18; Pulse Ox 100% on R/A; lp1 23:00 BP 104 / 76; Pulse 48; Resp 16; Temp 97.8(O); Pulse Ox 100% on R/A; lp1 23:45 BP 122 / 74; Pulse 45; Resp 13; Pulse Ox 100% on R/A; lp1 16:59 Body Mass Index 18.62 (65.77 kg, 187.96 cm) sv MDM: 16:52 Patient medically screened. ma2 18:10 Differential diagnosis: gastritis, gastroesophageal reflux disease (GERD), ma2 pneumothorax, stable angina. MANUEL Risk Score: TOTAL SCORE = 0. Data reviewed: vital signs, nurses notes. Counseling: I had a detailed discussion with the patient and/or guardian regarding: the historical points, exam findings, and any diagnostic results supporting the discharge/admit diagnosis, the presence of at least one elevated blood pressure reading (>120/80) during this emergency department visit, the need for outpatient follow up. ED course: low risk chest pain, timiscore zero, will get 2nd trop and discharge home if negative . 19:44 ED course: Patient reports chest pain from reaction to Toradol. Reports similar pm1 reaction in the past. Requesting Ativan and Benadryl since they have worked well for him the past. . 22:09 Data interpreted: Pulse oximetry: on room air is 100 %. Interpretation: normal. pm1 Counseling: I had a detailed discussion with the patient and/or guardian regarding: the historical points, exam findings, and any diagnostic results supporting the discharge/admit diagnosis, lab results, the need for outpatient follow up, to return to the emergency department if symptoms worsen or persist or if there are any questions or concerns that arise at home. 23:03 ED course: Patient requested another bag of fluids. pm1 09/07 17:06 Order name: Basic Metabolic Panel; Complete Time: 18:06 ma2 09/07 17:06 Order name: CBC with Diff; Complete Time: 18:06 dc2 09/07 17:06 Order name: LFT's; Complete Time: 18:06 dc2 09/07 17:06 Order name: Magnesium; Complete Time: 18:06 dc2 09/07 17:06 Order name: NT PRO-BNP; Complete Time: 18:06 dc2 09/07 17:06 Order name: PT-INR; Complete Time: 18:06 ma2 09/07 17:06 Order name: Troponin (emerg Dept Use Only); Complete Time: 18:06 dc2 09/07 17:06 Order name: XRAY Chest (1 view); Complete Time: 18:06 dc2 09/07 20:42 Order name: Troponin (emerg Dept Use Only): Draw at 2130; Complete Time: 22:09 pm1 09/07 17:02 Order name: EKG; Complete Time: 17:02 09/07 17:02 Order name: EKG - Nurse/Tech; Complete Time: 17:02 09/07 17:06 Order name: Cardiac monitoring; Complete Time: 17:21 ma2 09/07 17:06 Order name: IV Saline Lock; Complete Time: 17:21 ma2 09/07 17:06 Order name: Labs collected and sent; Complete Time: 17:21 ma2 09/07 17:06 Order name: O2 Per Protocol; Complete Time: 17:21 ma2 09/07 17:06 Order name: O2 Sat Monitoring; Complete Time: 17:21 ma2 Administered Medications: 17:40 Drug: NS 0.9% 1000 ml Route: IV; Rate: 1 bolus; Site: right antecubital; sg 19:30 Follow up: IV Status: Completed infusion; IV Intake: 1000ml lp1 17:41 Drug: TORadol 30 mg Route: IVP; Site: right antecubital; sg 20:20 Drug: Benadryl 12.5 mg Route: IVP; Site: right antecubital; lp1 21:30 Follow up: Response: Marked relief of symptoms lp1 20:20 Drug: Ativan 1 mg Route: IVP; Site: right antecubital; lp1 21:30 Follow up: Response: Marked relief of symptoms lp1 23:10 Drug: NS 0.9% 1000 ml Route: IV; Rate: 1000 ml; Site: right antecubital; lp1 23:51 Follow up: IV Status: Completed infusion; IV Intake: 1000ml lp1 Disposition: 09/08 07:27 Co-signature as Attending Physician, Keturah Salas MD. dc2 Disposition: 09/07/19 22:10 Discharged to Home. Impression: Chest pain, unspecified. - Condition is Stable. - Discharge Instructions: Nonspecific Chest Pain. - Medication Reconciliation Form, Thank You Letter, Antibiotic Education, Prescription Opioid Use form. - Follow up: Emergency Department; When: As needed; Reason: Worsening of condition. Follow up: Private Physician; When: 2 - 3 days; Reason: Recheck today's complaints, Continuance of care, Re-evaluation by your physician. - Problem is new. - Symptoms have improved. Signatures: Dispatcher [facility] Hortencia Swanson RN RN Yogi Macario RN RN Lesly Guallpa RN RN ss Pena, Laura, RN RN lp1 Josr Winston, CHARACTER IMPERSONATOR CHARACTER IMPERSONATOR pm1 Keturah Salas MD MD dc2 Corrections: (The following items were deleted from the chart) 09/07 23:59 22:10 09/07/2019 22:10 Discharged to Home. Impression: Chest pain, unspecified. lp1 Condition is Stable. Forms are Medication Reconciliation Form, Thank You Letter, Antibiotic Education, Prescription Opioid Use. Follow up: Emergency Department; When: As needed; Reason: Worsening of condition. Follow up: Private Physician; When: 2 - 3 days; Reason: Recheck today's complaints, Continuance of care, Re-evaluation by your physician. Problem is new. Symptoms have improved. pm1
--- NOTE | 2019-09-07 22:11 | ER ---
Nurse's Notes [facility] Name: Reji Rodrigez Age: 54 yrs Sex: Male : 1965 Arrival Date: 09/07/2019 Time: 16:50 Bed 6 Private MD: Diagnosis: Chest pain, unspecified Presentation: 09/07 16:56 Presenting complaint: Patient states: midsternal chest pain that radiates to the back, sv SOB, dizziness, right rib cage pain started yesterday. Transition of care: patient was not received from another setting of care. Onset of symptoms was September 06, 2019. Risk Assessment: Do you want to hurt yourself or someone else? Patient reports no desire to harm self or others. Care prior to arrival: None. 16:56 Method Of Arrival: Wheelchair sv 16:56 Acuity: TELLO 2 sv 23:24 Initial Sepsis Screen: Does the patient meet any 2 criteria? No. Patient's initial lp1 sepsis screen is negative. Does the patient have a suspected source of infection? No. Patient's initial sepsis screen is negative. 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 - Social history:: Smoking status: Patient/guardian denies using tobacco, Patient/guardian denies using alcohol, street drugs, The patient lives with family. - Ebola Screening: : No symptoms or risks identified at this time. - Family history:: not pertinent. Screenin:33 Abuse screen: Denies threats or abuse. Denies injuries from another. Nutritional lp1 screening: No deficits noted. Tuberculosis screening: No symptoms or risk factors identified. Fall Risk Total Olea Fall Scale indicates High Risk Score (45 or more points). Fall prevention measures have been instituted. Side Rails Up X 2 Family Present and informed to notify staff if the need to leave the bedside As available patient and family educated on Fall Prevention Program and Strategies. Assessment: 17:01 General: Appears in no apparent distress. well groomed, well developed, well nourished, sg Behavior is calm, cooperative, appropriate for age. Pain: Complains of pain in chest Quality of pain is described as burning. Neuro: Level of Consciousness is awake, alert, obeys commands, Oriented to person, place, time, Speech is normal, Facial symmetry appears normal. Cardiovascular: Capillary refill is brisk in bilateral fingers Patient's skin is warm and dry. Chest pain is denied. Respiratory: Airway is patent Respiratory effort is even, unlabored, Respiratory pattern is regular, symmetrical. GI: No signs and/or symptoms were reported involving the gastrointestinal system. : No signs and/or symptoms were reported regarding the genitourinary system. EENT: No signs and/or symptoms were reported regarding the EENT system. Derm: Skin is pink, warm \\T\\ dry. Musculoskeletal: Circulation, motion, and sensation intact. Range of motion: intact in all extremities. 17:42 Reassessment: Patient appears in no apparent distress at this time. Patient and/or sg family updated on plan of care and expected duration. Pain level reassessed. Patient is alert, oriented x 3, equal unlabored respirations, skin warm/dry/pink. 18:16 Reassessment: Patient appears in no apparent distress at this time. Patient and/or sg family updated on plan of care and expected duration. Pain level reassessed. Patient is alert, oriented x 3, equal unlabored respirations, skin warm/dry/pink. Patient states symptoms have not improved. 19:00 Reassessment: pt reports pain in the chest at this time, Millie at bedside for repeat sg EKG, Josr CARRIONP notified. 20:15 Reassessment: Patient states chest pain to center of chest, rated 8/10 on pain scale, lp1 described as sharp pain to middle of chest; States "I think it's because my heart rate is so low"; Wearing mask, states smells cause him to have pain near his kidneys. 20:15 Pain: Pain does not radiate. lp1 21:30 Reassessment: Patient and/or family updated on plan of care and expected duration. Pain lp1 level reassessed. Patient states some relief to chest pain after medication administered. 22:30 Reassessment: Patient appears in no apparent distress at this time. General: Behavior lp1 is calm, cooperative. 23:02 Reassessment: Provider at bedside to discuss discharge; Patient requesting to have NS lp1 bag, States "I can't keep my sodium up, can I have another one before I go"; Provider states okay to administer. 23:23 Reassessment: Patient given discharge instructions, aware of discharge after lp1 completions of 1L NS. Vital Signs: 16:59 BP 125 / 84; Pulse 52; Resp 24; Pulse Ox 100% ; Weight 65.77 kg; Height 6 ft. 2 in. sv (187.96 cm); Pain 10/10; 17:42 Temp 97.2; sg 17:42 BP 122 / 70; Pulse 47; Resp 20; Pulse Ox 100% on R/A; sg 19:30 BP 131 / 83; Pulse 47; Resp 15; Pulse Ox 100% on R/A; lp1 20:30 BP 133 / 90; Pulse 44; Resp 13; Pulse Ox 100% on R/A; Pain 8/10; lp1 21:15 BP 121 / 83; Pulse 43; Resp 16; Pulse Ox 100% on R/A; lp1 22:00 BP 115 / 77; Pulse 45; Resp 18; Pulse Ox 100% on R/A; lp1 23:00 BP 104 / 76; Pulse 48; Resp 16; Temp 97.8(O); Pulse Ox 100% on R/A; lp1 23:45 BP 122 / 74; Pulse 45; Resp 13; Pulse Ox 100% on R/A; lp1 16:59 Body Mass Index 18.62 (65.77 kg, 187.96 cm) sv ED Course: 16:50 Patient arrived in ED. as 16:52 Keturah Salas MD is Attending Physician. ma2 16:57 Triage completed. sv 16:59 Arm band placed on. sv 17:29 XRAY Chest (1 view) In Process Unspecified. EDMS 17:33 Initial lab(s) drawn, by me, sent to lab. Inserted saline lock: 20 gauge in right dh3 antecubital area, using aseptic technique. Blood collected. 17:41 Yogi Macario, RN is Primary Nurse. sg 18:31 Josr Winston NP is PHCP. pm1 19:17 EKG done, by ED staff, reviewed by Josr Winston NP. dh3 19:54 Dorothy Sommer RN is Primary Nurse. lp1 20:15 Patient has correct armband on for positive identification. Bed in low position. Call lp1 light in reach. elementary special education teacher on. Pulse ox on. NIBP on. 20:34 Patient maintains SpO2 saturation greater than 95% on room air. lp1 23:23 No provider procedures requiring assistance completed. lp1 23:59 IV discontinued, No redness/swelling at site. Pressure dressing applied. lp1 Administered Medications: 17:40 Drug: NS 0.9% 1000 ml Route: IV; Rate: 1 bolus; Site: right antecubital; sg 19:30 Follow up: IV Status: Completed infusion; IV Intake: 1000ml lp1 17:41 Drug: TORadol 30 mg Route: IVP; Site: right antecubital; sg 20:20 Drug: Benadryl 12.5 mg Route: IVP; Site: right antecubital; lp1 21:30 Follow up: Response: Marked relief of symptoms lp1 20:20 Drug: Ativan 1 mg Route: IVP; Site: right antecubital; lp1 21:30 Follow up: Response: Marked relief of symptoms lp1 23:10 Drug: NS 0.9% 1000 ml Route: IV; Rate: 1000 ml; Site: right antecubital; lp1 23:51 Follow up: IV Status: Completed infusion; IV Intake: 1000ml lp1 Intake: 19:30 IV: 1000ml; Total: 1000ml. lp1 23:51 IV: 1000ml; Total: 2000ml. lp1 Outcome: 22:10 Discharge ordered by MD. pm1 23:24 Condition: good lp1 23:24 Discharge instructions given to patient, Instructed on discharge instructions, follow up and referral plans. Demonstrated understanding of instructions, follow-up care. 23:59 Discharged to home via wheelchair, with family. lp1 23:59 Patient left the ED. lp1 Signatures: Dispatcher [employer] Hortencia Dougherty RN RN Yogi Macario RN RN Natalya Young Laura, RN RN lp1 Josr Winston NP REPAIRER ENGINE PRODUCTION pm1 Millie Adams dh3 Keturah Salas MD MD ma2
[2019-09-08 02:21] VITALS: O2SAT 100
[2019-09-08 02:30] VITALS: TEMP 97.8
[2019-09-08 02:31] VITALS: BP 122/74
--- NOTE | 2019-09-10 08:15 | EKG ---
Test Date: 2019-09-07 Test Time: 16:59:41 Supervisor Title: BELL MEASUREMENT RESULTS: Intervals: Rate: 49 LA: 118 QRSD: 90 QT: 458 QTc: 413 [place]: P: -28 LA: 118 QRS: 61 T: 67 INTERPRETIVE STATEMENTS: Marked sinus bradycardia Abnormal ECG Compared to ECG 08/14/2019 16:50:23 Short LA interval no longer present Electronically Signed On 09-10-19 08:10:54 VAT PACKER by Harrison Ayoub
== END 2019-09-07 23:59 | disposition home or self-care (01) ==
LOC: ER 16:49
DX: R07.9 Chest pain, unspecified (principal); E03.9 Hypothyroidism, unspecified; F41.9 Anxiety disorder, unspecified; Z88.5 Allergy status to narcotic agent; Z88.8 Allergy status to other drugs, medicaments and biological substances
CPT/HCPCS: 96361; 93005 ×2; 85025; 80048; 36415; 83735; 85610; 80076; 84484 ×2; 83880; 71045; 96375; 96374; 99285; J1200; J7030 ×2